=== PATIENT | female | born 2000 | race Caucasian/White ===

== ENCOUNTER 2024-12-04 02:48 | Inpatient (IN) | payer OTHER, MEDICAID, SELFPAY ==
--- OUTSIDE RECORDS SUMMARY | 2024-12-03 23:05 | XMS RPT_ITS | CCD ---
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 Unavailable UnavailSHARMILA Solomon DO Primary Care Physician [phone] SHARMILA CHAUDHARI DO Primary Care Physician SHARMILA CHAUDHARI DO Attending Unavailable SHARMILA CHAUDHARI DO Primary Care Unavailable SHARMILA CHAUDHARI DO Attending Unavailable SHARMILA CHAUDHARI DO Primary Care Unavailable Unavailable Primary Care Provider UnavailSHARMILA Solomon DO Primary Care Unavailable SHARMILA CHAUDHARI DO Attending Unavailable SHARMILA CHAUDHARI DO Primary Care Unavailable YIFAN MORENO Attending SHARMILA Allred DO Primary Care Unavailable LUIS ANTONIO MOREIRA-YIFAN HALLMAN Attending SHARMILA Allred DO Primary Care Unavailable YIFAN MORENO Attending ELIANA Barbour Attending Unavail able DEANNA LIN Attending Unavailable LISBETH MORRIS Referring Unavailable ELIANA REED Attending Unavail able LISBETH MORRIS Referring Unavailable LISBETH MORRIS Attending Unavailable SALONI ZUNIGA Attending Unavailable SABRINA CAMPOS Attending Unavailable LISBETH MORRIS Attending Unavailable LORAINE VALERIO Referring Unavailable LORAINE VALERIO Referring Unavailable LORAINE VALERIO Attending Unavailable DEANNA LIN Attending Unavailable MATTIE HARMAN Attending Unavailable Allergies Allergy Classification Reported Allergen(s) Allergy Type Date of Onset Reaction(s) Facility (7 sources) Pollen Allergy to substance Unknown [facility] [place] (7 sources) Animal Dander Allergy to substance Unknown [facility] [place] (7 sources) Grass Allergy to substance Unknown [facility] Medications Current Medications Medication Drug Class(es) Dates Sig (Normalized) Sig (Original) Albuterol (11 sources) beta2-Adrenergic Agonist Start: 04-21-2023 ALBUTEROL INHALATION Inhale as instructed. 04/21/2023 Active Albuterol (Eqv-ProAir HFA) 90 mcg/inh inhalation aerosol (4 sources) Start: 04-21-2023 take 1 dose by inhalation every six hours Albuterol (Eqv-ProAir HFA) 90 mcg/inh inhalation aerosol Dose = 2 puff(s), Inhalation, q6hr, # 1 EA, 5 Refill(s), Pharmacy: [facility] #[id number], Environmental allergy, 160.8, cm, 04/21/23 15:35:00 EDT, Height, kg, 04/21/23 15:35:00 EDT, Dosing Weight Start Date: 04/21/23 Status: Ordered cetirizine hydrochloride 10 mg oral tablet (4 sources) Histamine-1 Receptor Antagonist Start: 10-20-2023 cetirizine 10 mg oral tablet Dose : 10 mg = 1 tab(s), Oral, qDay, # 30 tab(s), 5 Refill(s), [facility]acy: [facility] #[id number], Environmental allergy, 162, cm, 10/20/23 13:01:00 EDT, Height, kg, 10/20/23 13:01:00 EDT, Dosing Weight Start Date: 10/20/23 Status: Ordered Start: 04-21-2023 cetirizine 10 mg oral tablet Dose : 10 mg = 1 tab(s), Oral, qDay, # 30 tab(s), 5 Refill(s), Pharmacy: [facility] #[id number], Environmental allergy, 160.8, cm, 04/21/23 15:35:00 EDT, Height, kg, 04/21/23 15:35:00 EDT, Dosing Weight Start Date: 04/21/23 Status: Ordered [id number]-[id number]-[id number] ACID ORAL (5 sources) COLLAGEN-BIOTIN- ASCORBIC ACID ORAL Take by mouth. Active Famotidine (11 sources) Histamine-2 Receptor Antagonist famotidine (PEPCID O RAL) Take by mouth. Active hydrOXYzine hydrochloride 25 mg oral tablet (2 sources) Antihistamine Sta rt: 4 hydrOXYzine hydrochloride 25 mg oral tablet Dose : 25 mg = 1 tab(s), Oral, TID, PRN as needed for anxiety, # 90 tab(s), 2 Refill(s), Pharmacy: [facility] #[id number], Anxiety Recurrent major depression, 163.1, cm, 07/22/23 13:00:00 EST, Height, kg, 07/22/23 13:00:00 EST, Dosing Weight Start Date: 07/22/23 Status: Ordered metoclopramide 10 mg oral tablet (11 sources) Dopamine-2 Receptor Antagonist Sta rt: 5 take 1 tablet by mouth every six hours at bedtime as needed for nausea metoclopramide HCl (REGLAN) 10 mg tablet TAKE 1 TABLET BY MOUTH EVERY 6 HOURS (ONE-HALF HOUR BEFORE MEALS AND AT BEDTIME) NEEDED FOR NAUSEA. 06/28/2024 Active minocycline 100 mg oral capsule (2 sources) Tetracycline-clas s Drug Sta rt: 2 minocycline 100 mg oral capsule Dose : 100 mg = 1 cap(s), Oral, Daily, # 90 cap(s), 1 Refill(s), Pharmacy: [facility] #[id number], Cystic acne, 162.6, cm, 08/25/21 15:23:00 EST, Height, 54.5 Start Date: 02/19/22 Status: Ordered omeprazole 20 mg delayed release oral capsule (2 sources) Proton Pump Inhibitor Sta rt: 4 omeprazole 20 mg oral delayed release capsule Dose : 20 mg = 1 cap(s), Oral, qDay, # 30 cap(s), 5 Refill(s), Pharmacy: [facility] #[id number], GERD without esophagitis, 162, cm, 12/31/23 13:27:00 EDT, Height, kg, 12/31/23 13:27:00 EDT, Dosing Weight Start Date: 12/31/23 Status: Ordered PNV no.95/ferrous fum/folic ac ( ORAL) (13 sources) PNV no.95/ferrou s fum/folic ac ( ORAL) Take by mouth. Active Vitamin D3 1250 mcg (50,000 intl units) oral capsule (3 sources) Sta rt: Vitamin D3 1250 mcg (50,000 intl units) oral capsule Dose : 1,250 mcg = 1 cap(s), Oral, qWeek, # 13 cap(s), 3 Refill(s), Pharmacy: [facility] #[id number], Vitamin D deficiency, 162, cm, 12/31/23 13:27:00 EDT, Height, kg, 12/31/23 13:27:00 EDT, Dosing Weight Start Date: 12/31/23 Status: Ordered Start: 04-22-2023 Vitamin D3 125 0 mcg (50,000 intl units) oral capsule Dose : 1,250 mcg = 1 cap(s), Oral, qWeek, # 13 cap(s), 3 Refill(s), Pharmacy: [facility] #[id number], Vitamin D deficiency, 160.8, cm, 04/21/23 15:35:00 EDT, Height, kg, 04/21/23 15:35:00 EDT, Dosing Weight Start Date: 04/22/23 Status: Ordered Completed/Discontinued Medications Medication Drug Class(es) Dates Sig (Normalized) Sig (Original) nystatin 100 unt/mg topical powder (2 sources) Polyene Antifungal Start: 10-20-2023 End: 12-19-2023 nystatin 100,000 units/g topical powder Apply 1 bipin, Topical, BID, Apply to affected area twice a day, # 60 gram(s), 1 Refill(s), Pharmacy: [facility] #[id number], Powder, 162, cm, 10/20/23 13:01:00 EDT, Height, 55.5, kg, 10/20/23 13:01:00 EDT, Dosing Weight Start Date: 10/20/23 Stop Date: 12/19/23 Status: Ordered Problems Active Problems Problem Classification Problem Date Documented Date Episodic/Chronic Allergic reactions (7 sources) Environmental allergy; Translations: [Allergic disposition] 01-17-2019 Episodic Anxiety disorders (7 sources) Anxiety 01-17-2019 Chronic Bacterial infection; unspecified site (1 source) Bacteria present; Translations: [Streptococcus, group B, as the cause of diseases classified elsewhere] 11-29-2024 Episodic Disorders of teeth and jaw (7 sources) Jaw pain 01-31-2020 Episodic Esophageal disorders (3 sources) Gastroesophageal reflux disease without esophagitis 12-31-2023 Chronic Genitourinary symptoms and ill-defined conditions (2 sources) Unspecified symptoms and signs involving the genitourinary system; Translations: [Unspecified symptoms and signs involving the genitourinary system] Onset: 11-17-2024 Episodic Headache; including migraine (7 sources) Chronic tension-type headache 06-29-2019 Chronic Immunizations and screening for infectious disease (1 source) Patient encounter status; Translations: [Encounter for screening for infections with a predominantly sexual mode of transmission] 07-26-2024 Episodic Menstrual disorders (7 sources) Menorrhagia 01-17-2019 Chronic Miscellaneous mental health disorders (7 sources) Bruxism (teeth grinding) 11-30-2019 Chronic Mood disorders (12 sources) Depressive disorder; Translations: [Recurrent major depression] 01-17-2019 Chronic Mood disorders (1 source) Mood disorders; Translations: [Depression affecting ([facility])] Onset: 07-26-2024 Mycoses (3 sources) Candidiasis 10-20-2023 Episodic Nausea and vomiting (7 sources) Nausea and vomiting 04-26-2020 Episodic Nutritional deficiencies (3 sources) Vitamin D deficiency 07-22-2023 Chronic Other complications of (20 sources) Depressive disorder in mother complicating ; Translations: [Other mental disorders complicating , unspecified trimester] Onset: 07-26-2024 07-26-2024 Episodic Other complications of (4 sources) Uterine size for dates discrepancy; Translations: [Uterine size-date discrepancy, third trimester] 10-25-2024 Episodic Other complications of (12 sources) High risk ; Translations: [Supervision of high risk due to social problems, third trimester] Onset: 10-25-2024 10-25-2024 Episodic Other complications of (1 source) Supervision of high risk due to social problems, third trimester; Translations: [Supervision of high risk due to social problems, third trimester ([facility])] Onset: 10-25-2024 Episodic Other complications of (1 source) Uterine size-date discrepancy, third trimester; Translations: [Uterine size-date discrepancy, third trimester ([facility])] Onset: 11-15-2024 Episodic Other injuries and conditions due to external causes (7 sources) Deliberate self-cutting 01-17-2019 Episodic Other nutritional; endocrine; and metabolic disorders (5 sources) Body mass index less than 20 01-27-2023 Episodic Other and delivery including normal (20 sources) Normal ; Translations: [Encounter for supervision of normal first , second trimester] Onset: 07-26-2024 07-26-2024 Episodic Other screening for suspected conditions (not mental disorders or infectious disease) (12 sources) Viral screening status; Translations: [Cancer cervix screening status] Onset: 08-14-2024 04-21-2023 Episodic Other skin disorders (7 sources) Cystic acne 02-19-2022 Episodic Other skin disorders (5 sources) Bina incarnati 01-27-2023 Episodic Residual codes; unclassified (7 sources) Tobacco user 11-30-2019 Episodic Residual codes; unclassified (5 sources) Needs influenza immunization 04-21-2023 Episodic Residual codes; unclassified (5 sources) Screening due 04-21-2023 Episodic Residual codes; unclassified (3 sources) Unprotected sexual intercourse 10-20-2023 Episodic Residual codes; unclassified (1 source) Gestation period, 21 weeks; Translations: [21 weeks gestation of ] 07-26-2024 Episodic Residual codes; unclassified (1 source) Gestation period, 24 weeks; Translations: [24 weeks gestation of ] 08-14-2024 Episodic Residual codes; unclassified (1 source) Gestation period, 25 weeks; Translations: [25 weeks gestation of ] 08-17-2024 Episodic Residual codes; unclassified (1 source) Gestation period, 29 weeks; Translations: [29 weeks gestation of ] 09-15-2024 Episodic Residual codes; unclassified (1 source) Gestation period, 31 weeks; Translations: [31 weeks gestation of ] 09-29-2024 Episodic Residual codes; unclassified (2 sources) Gestation period, 34 weeks; Translations: [34 weeks gestation of ] 10-25-2024 Episodic Residual codes; unclassified (1 source) Gestation period, 37 weeks; Translations: [37 weeks gestation of ] 11-15-2024 Episodic Residual codes; unclassified (1 source) Gestation period, 38 weeks; Translations: [38 weeks gestation of ] 11-20-2024 Episodic Residual codes; unclassified (1 source) Gestation period, 39 weeks; Translations: [39 weeks gestation of ] 11-29-2024 Episodic Residual codes; unclassified (1 source) 39 weeks gestation of ; Translations: [39 weeks gestation of (HCC)] Onset: 11-29-2024 Episodic Residual codes; unclassified (1 source) 38 weeks gestation of ; Translations: [38 weeks gestation of (HCC)] Onset: 11-20-2024 Episodic Residual codes; unclassified (1 source) 37 weeks gestation of ; Translations: [37 weeks gestation of (HCC)] Onset: 11-15-2024 Episodic Residual codes; unclassified (1 source) 36 weeks gestation of ; Translations: [36 weeks gestation of (HCC)] Onset: 11-08-2024 Episodic Residual codes; unclassified (1 source) 34 weeks gestation of ; Translations: [34 weeks gestation of (HCC)] Onset: 10-25-2024 Episodic Residual codes; unclassified (1 source) 33 weeks gestation of ; Translations: [33 weeks gestation of (HCC)] Onset: 10-13-2024 Episodic Residual codes; unclassified (1 source) 21 weeks gestation of ; Translations: [21 weeks gestation of (HCC)] Onset: 09-15-2024 Episodic Residual codes; unclassified (1 source) 25 weeks gestation of ; Translations: [25 weeks gestation of (HCC)] Onset: 09-15-2024 Episodic Screening and history of mental health and substance abuse codes (5 sources) Ex-tobacco user 01-27-2023 Episodic Unclassified (2 sources) Unknown / UNK(Unknown) Onset: 03-01-2017 Unclassified (7 sources) Cancer cervix screening status 03-20-2022 Unclassified (7 sources) Finding of menstrual bleeding 03-20-2022 Unclassified (20 sources) Patient encounter status 03-20-2022 Unclassified (8 sources) Body mass index 20-24 - normal 04-21-2023 Unclassified (13 sources) [facility] Education - COMMON Onset: 07-26-2024 07-26-2024 Unclassified (13 sources) Education - [place] Onset: 07-26-2024 5 Urinary tract infections (1 source) Chronic cystitis Onset: 03-01-2017 Chronic Viral infection (7 sources) Disease caused by 2019-nCoV 02-19-2022 Past or Other Problems Problem Classification Problem Date Documented Da te Episodic/Chronic Other complications of (14 sources) Vomiting of , unspecified; Translations: [Unspecified vomiting of , unspecified as to episode of care or not applicable] Onset: 07-26-2024 07-26-2024 Episodic Other complications of (14 sources) Heartburn; Translations: [Other specified related conditions, second trimester] Onset: 07-26-2024 07-26-2024 Episodic Other complications of (1 source) Other mental disorders complicating , unspecified trimester; Translations: [Depression affecting (HCC)] Onset: 07-26-2024 Episodic Residual codes; unclassified (1 source) 24 weeks gestation of ; Translations: [24 weeks gestation of ] Onset: 08-14-2024 Episodic Unclassified (1 source) SINUS PRESSURE AND CONGESTION Onset: 04-26-2017 Results Test Name Value Interpretation Reference Range Facility URINE OB DIP B/Oon 5 Glucose Ql (U) Negative Neg mg/dL [facility] Interpretation and review of laboratory results Normal [facility] Protein.monoclonal (U) [Mass/Vol] Negative Neg mg/dL [facility] URINE OB DIP B/Oon 5 Glucose Ql (U) Negative Neg mg/dL [facility] Interpretation and review of laboratory results Normal [facility] Protein.monoclonal (U) [Mass/Vol] Negative Neg mg/dL [facility] URINE OB DIP B/Oon 5 Glucose Ql (U) Negative Neg mg/dL [facility] Protein.monoclonal (U) [Mass/Vol] Negative Neg mg/dL [facility] ROUTINE, GROUP B ST REPTOCOCCUS BY PCRon 11-08-2024 ROUTINE, GROUP B STREPTOCOCCUS BY PCR Detected Abnormal [facility] Comment on above: Performed By: #### G BPCR ####[facility] LABCLIA [id number] [place] [address] [place] CNPNon 10-26-2024 [facility] Telephone (NAVWST) RAMSEYMELQUIADES A ([id number]) 1 F Date Time Provider Department 10/26/24 TERE OLIVARES During your visit today, we recorded the following information about you: Tere Olivares MSW 10/26/2024 11:09 AM Signed Miguel received message asking Sw reach out to patient to discuss adoption service options in the area. Sw called patient back and left message for patient to give this Sw a call back to discuss care support in the [facility]. Tere Olivares MSW 10/27/2024 11:52 AM Signed Miguel received message back from patient requesting call back. Sw called patient back and left message for patient to return Sw call to discuss below. Tere Olivares MSW 11/01/2024 11:39 AM Signed Sw and patient discussed starting with [facility]. Sw thought it would be helpful for patient to reach out to [facility] to gather more information about adoption and learn more about the agencies that are out there to assist with adoption. Patient took down [facility] ph. [phone] address:[address] [place] [address], [phone]. Patient notes that she will give them a call and will let this Sw know if she has any further needs. Allergies As of Date: 10/26/2024 (No Known Allergies) Date Reviewed: 10/25/2024 Reviewed by: Ara Perla MA - Fully Assessed Prescriptions as of 11/01/2024 - ALBUTEROL INHALATION Inhale as instructed. - metoclopramide HCl (REGLAN) 10 mg tablet TAKE 1 TABLET BY MOUTH EVERY 6 HOURS (ONE-HALF HOUR BEFORE MEALS AND AT BEDTIME) NEEDED FOR NAUSEA. - famotidine (PEPCID ORAL) Take by mouth. - PNV no.95/ferrous fum/folic ac ( ORAL) Take by mouth. Problem List As Of Date 10/26/2024 Noted Resolved with care elsewhere in secon*07/26/2024 Encounter for supervision of normal first pregn*07/26/2024 Nausea and vomiting during [O21.9] 07/26/2024 Depression affecting [O99.340, F32.A] 07/26/2024 Heartburn during in second trimester *07/26/2024 Supervision of high risk due to socia*10/25/2024 Encounter Status:Closed by TERE OLIVARES on 11/01/24 Normal [facility] Examination level ultrasound on 10-25-2024 [facility] Radiology Study observation (narrative) [facility] URINE OB DIP B/Oon Glucose Ql (U) Negative Neg mg/dL [facility] Protein.monoclonal (U) [Mass/Vol] Negative Neg mg/dL [facility] CNPNon 10-09-2024 CNPN Telephone (PSYRMN) MELQUIADES MUSTAFA ([id number]) 1 F Date Time Provider Department 10/09/24 HATTIE PLUNKETT PSYRMN During your visit today, we recorded the following information about you: Hattie Plunkett LISW 10/09/2024 12:17 PM Signed Phone call to patient regarding [facility] referral. Patient did not answer, unable to leave message. Outreach attempt #3. Will send MC message. WB SW can be reached at: [place]: [phone] [place]:[phone] Allergies As of Date: 10/09/2024 (No Known Allergies) Date Reviewed: 09/30/2024 Reviewed by: Saloni Zuniga MD - Fully Assessed Reason for Visit: Base Brander - Other [2376] Cmt: [facility] Consult Follow Up Prescriptions as of 10/09/2024 - ALBUTEROL INHALATION Inhale as instructed. - metoclopramide HCl (REGLAN) 10 mg tablet TAKE 1 TABLET BY MOUTH EVERY 6 HOURS (ONE-HALF HOUR BEFORE MEALS AND AT BEDTIME) NEEDED FOR NAUSEA. - famotidine (PEPCID ORAL) Take by mouth. - PNV no.95/ferrous fum/folic ac ( ORAL) Take by mouth. - [id number] ACID ORAL Take by mouth. Problem List As Of Date 10/09/2024 Noted Resolved with care elsewhere in secon*07/26/2024 Encounter for supervision of normal first pregn*07/26/2024 Nausea and vomiting during [O21.9] 07/26/2024 Depression affecting [O99.340, F32.A] 07/26/2024 Heartburn during in second trimester *07/26/2024 Encounter Status:Closed by HATTIE PLUNK[facility]T [facility] Tele[facility] (PSYRMN) MELQUIADES MUSTAFA ([id number]) 1 F Date Time Provider Department 09/27/24 HATTIE PLUNKETT PSYRMN During your visit today, we recorded the following information about you: Hattie Plunkett LISW 09/27/2024 1:42 PM Signed Phone call to patient regarding [facility] referral. Patient did not answer, left message. [facility] SW can be reached at: [place]: [phone] [place]:[phone] Allergies As of Date: 09/27/2024 (No Known Allergies) Date Reviewed: 09/15/2024 Reviewed by: Mickey Figueroa MA - Fully Assessed Reason for Visit: Base Brander - Other [0450] Cmt: [facility] Consult Follow Up Prescriptions as of 09/27/2024 - ALBUTEROL INHALATION Inhale as instructed. - metoclopramide HCl (REGLAN) 10 mg tablet TAKE 1 TABLET BY MOUTH EVERY 6 HOURS (ONE-HALF HOUR BEFORE MEALS AND AT BEDTIME) NEEDED FOR NAUSEA. - famotidine (PEPCID ORAL) Take by mouth. - PNV no.95/ferrous fum/folic ac ( ORAL) Take by mouth. - [id number] ACID ORAL Take by mouth. Problem List As Of Date 09/27/2024 Noted Resolved with care elsewhere in secon*07/26/2024 Encounter for supervision of normal first pregn*07/26/2024 Nausea and vomiting during [O21.9] 07/26/2024 Depression affecting [O99.340, F32.A] 07/26/2024 Heartburn during in second trimester *07/26/2024 Encounter Status:Closed by HATTIE PLUNKETT on 09/27/24 Normal [facility] CARRIER SCREEN, STANDARDon 0 09-15-2024 CARRIER SCREEN RESULTS View results in Scanned Documents link when available. Normal [facility] Comment on above: Order Comment: Speci men Type: BLOOD SPECIMENOrdering Facility: [facility] Address: [address] [place] [address] Performed By: #### C RRSCN ####MYRIADCLIA [id number] [place] [address] CBC W Auto Differential pane l (Bld)on 09-15-2024 Basophils (Bld) [#/Vol] 0.03 10*3/uL Normal <0.11 [facility] Comment on above: Order Comment: Speci men Type: BLOOD SPECIMENOrdering Facility: [facility] Address: [address] [place] [address] Performed By: #### 5 7021-8 ####[facility] HOSPITALMarcia [id number] [place] [address] [place] Basophils/100 WBC (Bld) 0.3 % Normal [facility] Comment on above: Order Comment: Speci men Type: BLOOD SPECIMENOrdering Facility: [facility] Address: [address] [place] [address] Performed By: #### 5 7021-8 ####[facility] RAINADEBORALIA [id number] [place] [address] [place] Differential cell count method Nom (Bld) Auto Normal [facility] Comment on above: Order Comment: Speci men Type: BLOOD SPECIMENOrdering Facility: [facility] Address: [address] [place] [address] Performed By: #### 5 7021-8 ####[facility]NCL[facility] [id number] [place] [address] [place] Eosinophils (Bld) [#/Vol] 0.17 10*3/uL Normal <0.46 [facility] Comment on above: Order Comment: Speci men Type: BLOOD SPECIMENOrdering Facility: [facility] Address: [address] [place] [address] Performed By: #### 5 7021-8 ####[facility] [id number] [place] [address] [place] Eosinophils/100 WBC (Bld) 1.7 % Normal [facility] Comment on above: Order Comment: Speci men Type: BLOOD SPECIMENOrdering Facility: [facility] Address: [address] [place] [address] Performed By: #### 5 7021-8 ####[facility] [id number] [place] [address] [place] Erythrocyte distribution width (RBC) [Ratio] 12.1 % Normal 11.5-15.0 [facility] Comment on above: Order Comment: Speci men Type: BLOOD SPECIMENOrdering Facility: [facility] Address: [address] [place] [address] Performed By: #### 5 7021-8 ####[facility]IA [id number] [place] [address] [place] Hematocrit (Bld) [Volume fraction] 34.4 % Low 36.0-46.0 [facility] Comment on above: Order Comment: Speci men Type: BLOOD SPECIMENOrdering Facility: [facility] Address: [address] [place] [address] Performed By: #### 5 7021-8 ####[facility]ITALTRENA [id number] [place] [address] [place] Hemoglobin (Bld) [Mass/Vol] 11.8 g/dL Normal 11.5-15.5 [facility] Comment on above: Order Comment: Speci men Type: BLOOD SPECIMENOrdering Facility: [facility] Address: [address] [place] [address] Performed By: #### 5 7021-8 ####[facility]PITALLIMarcia [id number] [place] [address] [place] Immature granulocytes (Bld) [#/Vol] 0.04 10*3/uL Normal <0.10 [facility] Comment on above: Order Comment: Speci men Type: BLOOD SPECIMENOrdering Facility: [facility] Address: [address] [place] [address] Performed By: #### 5 7021-8 ####[facility]THNCLIA [id number] [place] [address] [place] Immature granulocytes/100 WBC (Bld) 0.4 % Normal [facility] Comment on above: Order Comment: Speci men Type: BLOOD SPECIMENOrdering Facility: [facility] Address: [address] [place] [address] Performed By: #### 5 7021-8 ####[facility] NORTHNCLIA [id number] [place] [address] [place] Lymphocytes (Bld) [#/Vol] 1.83 10*3/uL Normal 1.00-4.00 [facility] Comment on above: Order Comment: Speci men Type: BLOOD SPECIMENOrdering Facility: [facility] Address: [address] [place] [address] Performed By: #### 5 7021-8 ####[facility] [id number] [address] STATES [facility] Lymphocytes/100 WBC (Bld) 18.2 % Normal [facility] Comment on above: Order Comment: Speci men Type: BLOOD SPECIMENOrdering Facility: [facility] Address: [address] [place] [address] Performed By: #### 5 7021-8 ####[facility] [id number] [place] [address] [place] MCH (RBC) [Entitic mass] 33.1 pg Normal 26.0-34.0 [facility] Comment on above: Order Comment: Speci men Type: BLOOD SPECIMENOrdering Facility: [facility] Address: [address] [place] [address] Performed By: #### 5 7021-8 ####[facility] [id number] [address] [place] MCHC (RBC) [Mass/Vol] 34.3 g/dL Normal 30.5-36.0 [facility] Comment on above: Order Comment: Speci men Type: BLOOD SPECIMENOrdering Facility: [facility] Address: [address] [place] [address] Performed By: #### 5 7021-8 ####[facility] [id number] [address] [place] MCV (RBC) [Entitic vol] 96.4 fL Normal 80.0-100.0 [facility] Comment on above: Order Comment: Speci men Type: BLOOD SPECIMENOrdering Facility: [facility] Address: [address] [place] [address] Performed By: #### 5 7021-8 ####[facility] MILL[facility]OWNCLIA [id number] [place] [address] [place] Monocytes (Bld) [#/Vol] 0.64 10*3/uL Normal <0.87 [facility] Comment on above: Order Comment: Speci men Type: BLOOD SPECIMENOrdering Facility: [facility] Address: [address] [place] [address] Performed By: #### 5 7021-8 ####[facility] MILL[facility]OWNCL[facility] [id number] [place] [address] [place] Monocytes/100 WBC (Bld) 6.4 % Normal [facility] Comment on above: Order Comment: Speci men Type: BLOOD SPECIMENOrdering Facility: [facility] Address: [address] [place] [address] Performed By: #### 5 7021-8 ####[facility] [id number] [place] [address] [place] Neutrophils (Bld) [#/Vol] 7.36 10*3/uL Normal 1.45-7.50 [facility] Comment on above: Order Comment: Speci men Type: BLOOD SPECIMENOrdering Facility: [facility] Address: [address] [place] [address] Performed By: #### 5 7021-8 ####[facility] MILL[facility]OWNCL[facility] [id number] [place] [address] [place] Neutrophils/100 WBC (Bld) 73.0 % Normal [facility] Comment on above: Order Comment: Speci men Type: BLOOD SPECIMENOrdering Facility: [facility] Address: [address] [place] [address] Performed By: #### 5 7021-8 ####[facility]ILL[facility]OWNCL[facility] [id number] [place] [address] [place] Nucleated RBC (Bld) [#/Vol] 10*3/uL Normal <0.01 [facility] Comment on above: Order Comment: Speci men Type: BLOOD SPECIMENOrdering Facility: [facility] Address: [address] [place] [address] Performed By: #### 5 7021-8 ####[facility] [id number] [place] [address] [place] Nucleated RBC/100 WBC (Bld) [Ratio] 0.0 /100 WBC Normal [facility] Comment on above: Order Comment: Speci men Type: BLOOD SPECIMENOrdering Facility: [facility] Address: [address] [place] [address] Performed By: #### 5 7021-8 ####[facility] [id number] [place] [address] [place] Platelet mean volume (Bld) [Entitic vol] 10.1 fL Normal 9.0-12.7 [facility] Comment on above: Order Comment: Speci men Type: BLOOD SPECIMENOrdering Facility: [facility] Address: [address] [place] [address] Performed By: #### 5 7021-8 ####[facility] [id number] [place] [address] [place] Platelets (Bld) [#/Vol] 254 10*3/uL Normal 150-400 [facility] Comment on above: Order Comment: Speci men Type: BLOOD SPECIMENOrdering Facility: [facility] Address: [address] [place] [address] Performed By: #### 5 7021-8 ####[facility] [id number] [place] [address] [place] RBC (Bld) [#/Vol] 3.57 10*6/uL Low 3.90-5.20 [facility] Comment on above: Order Comment: Speci men Type: BLOOD SPECIMENOrdering Facility: [facility] Address: [address] [place] [address] Performed By: #### 5 7021-8 ####[facility] [id number] [place] [address] [place] [facility] WBC (Bld) [#/Vol] 10.07 10*3/uL Normal 3.70-11.00 [facility] Comment on above: Order Comment: Speci men Type: BLOOD SPECIMENOrdering Facility: [facility] Address: [address] [place] [address] Performed By: #### 5 7021-8 ####[facility] [id number] [address] OF [facility] CNPLakesha 09-15-2024 CNPN Telephone (PSYRMN) MELQUIADES MUSTAFA ([id number]) 1 F Date Time Provider Department 09/15/24 ONEYDA BARAHONA PSYRMN During your visit today, we recorded the following information about you: Oneyda Barahona LISW 09/15/2024 4:21 PM Signed Phone call to patient regarding [facility] referral. Patient did not answer, left message. [facility] SW can be reached at: [place]: [phone] [place]:[phone] Allergies As of Date: 09/15/2024 (No Known Allergies) Date Reviewed: 09/15/2024 Reviewed by: Mickey Figueroa MA - Fully Assessed Reason for Visit: Base Brander - Other [[id number]] Cmt: [facility] referral follow up Prescriptions as of 09/15/2024 - ALBUTEROL INHALATION Inhale as instructed. - metoclopramide HCl (REGLAN) 10 mg tablet TAKE 1 TABLET BY MOUTH EVERY 6 HOURS (ONE-HALF HOUR BEFORE MEALS AND AT BEDTIME) NEEDED FOR NAUSEA. - famotidine (PEPCID ORAL) Take by mouth. - PNV no.95/ferrous fum/folic ac ( ORAL) Take by mouth. - TJQLBAQE-EIBQYI-KXAZYSQL ACID ORAL Take by mouth. Problem List As Of Date 09/15/2024 Noted Resolved with care elsewhere in secon*07/26/2024 Encounter for supervision of normal first pregn*07/26/2024 Nausea and vomiting during [O21.9] 07/26/2024 Depression affecting [O99.340, F32.A] 07/26/2024 Heartburn during in second trimester *07/26/2024 Encounter Status:Closed by ONEYDA BARAHONA on 09/15/24 Normal [facility] GESTATIONAL GLUCOSE SCREEN, 1-HOUR, 50 GRAM, NON-FASTINGon 09-15-2024 Glucose [Mass/Vol] 133 mg/dL Normal 74-134 [facility] Comment on above: Order Comment: Gaby perkins Type: BLOOD SPECIMEN Ordering Facility: [facility] Address: [address] [place], [place] [address] Result Comment: [facility] Congress of Obstetricians and Gynecologists (Nasir/Roni) guidelines state a gestational diabetes mellitus positive screen is made, in women not previously diagnosed with overt diabetes, when the 1 hr plasma glucose level is equal to or above 140 mg/dL. The [facility] and [facility] [place] recommends a 135 mg/dL cutoff. Performed By: #### G LTGST #### [facility] CLIA [id number] [address] [place] [address] [place] HCV Ab Ser Qlon 09-15-2024 HCV Ab Ql (S) Negative Normal Negative [facility] Comment on above: Order Comment: Gaby perkins Type: BLOOD SPECIMENOrdering Facility: [facility] Address: [address] [id number] Result Comment: The result suggests no evidence of infection with Hepatitis C virus. Should recent infection be suspected, repeat testing may be considered 4-6 weeks after this draw. Performed By: #### 1 6128-1 ####[facility] LABCLIA [id number] [place] [address] [place] HbA1c (Bld)on 09-15-2024 Average glucose Estimated from glycated hemoglobin (Bld) [Mass/Vol] 82 mg/dL Normal [facility] Comment on above: Order Comment: Speci men Type: BLOOD SPECIMENOrdering Facility: [facility] Address: [address] [place] [address] Result Comment: eAG: (Estimated average glucose) is a calculated value from HgbA1c and is service center representative of the average blood glucose level in the last 2-3 month period. Performed By: #### 5 5454-3 ####[facility] LABIA [id number] [address] [place] HbA1c (Bld) [Mass fraction] 4.5 % Normal 4.3-5.6 [facility] Comment on above: Order Comment: Speci maddie Type: BLOOD SPECIMENOrdering Facility: [facility] Address: [address] [place] [address] Result Comment: Amer ican Diabetes Association guidelines indicate that patients with HgbA1c in the range 5.7-6.4% are at increased risk for development of diabetes, and intervention by lifestyle modification may be beneficial. HgbA1c greater or equal to 6.5% is considered diagnostic of diabetes. Performed By: #### 5 5454-3 ####[facility] LABIA [id number] [place] [address] [place] Reagin and Treponema pallidu m IgG and IgM [Interp]on 09-15-2024 T. pallidum IgG+IgM IA Ql (S) Non-Reactive Normal Nonreactive [facility] Comment on above: Order Comment: Trangi men Type: BLOOD SPECIMENOrdering Facility: [facility] Address: [address] [place] [address] Performed By: #### 7 3752-8 ####[facility] LABCLIA [id number] [place] [address] [place] Reagin+T pallidum IgG+IgM Se rPl-Impon 09-15-2024 Reagin and Treponema pallidum IgG and IgM [Interp] Cannot exclude recent Treponemal infection if specimen collected within 7-10 days after appearance of suspect lesions or 2-3 weeks after an exposure. Clinical correlation is required. Normal [facility] Comment on above: Order Comment: Speci men Type: BLOOD SPECIMENOrdering Facility: [facility] Address: [address] [place] [address] Performed By: #### 7 3752-8 ####[facility] LABCLIA [id number] [place] [address] [place] [facility] Examination level ultrasound on 08-14-2024 Indication Standard anatomic survey Impression REMOTE READ The patient is referred for a standard anatomic survey. - Single, live, intrauterine . - biometry is consistent with the established gestational age. - No malformations were visualized on a complete standard anatomic survey. - The amniotic fluid volume is normal amount. - The placenta is posterior, fundal. - Simple appearing left ovarian cyst as measured below - Not all structural malformations can be detected by ultrasound examination. Recommendations Additional follow-up as clinically indicated. Maternal Assessment Height 163 cm Height (ft) 5 ft Height (in) 4 in Physical Exam Initial weight (lb) 115 lb Initial BMI 19.74 kg/m Method Transabdominal ultrasound examination. View: Adequate visualization [place] . Number of fetuses: 1 Dating GA by prior assessment 24 w + 4 d YAZ by prior assessment: 11/30/2024 Ultrasound examination on: 08/14/2024 GA by U/S based upon: AC, BPD, Femur, HC GA by U/S 25 w + 2 d YAZ by U/S: 11/25/2024 Assigned: based on stated YAZ, selected on 08/14/2024 Assigned GA 24 w + 4 d Assigned YAZ: 11/30/2024 General Evaluation Cardiac activity present. FHR 148 bpm. movements: present. Presentation: breech Placenta: Placental site: posterior, fundal Umbilical cord: Cord vessels: 3 vessel cord. Insertion site: normal insertion Amniotic fluid: Amount of AF: normal amount. MVP 6.1 cm. PIO 19.1 cm. Q1 6.1 cm, Q2 5.0 cm, Q3 3.1 cm, Q4 4.9 cm Growth Overview Exam date GA BPD (mm) HC (mm) AC (mm) FL (mm) HL (mm) EFW (g) 08/14/2024 24w 4d 61.1 53% 228.5 53% 214.6 82% 46.1 86% 42.6 73% 825 82% Biometry Standard BPD 61.1 mm 24w 6d 53% Hadlock OFD 81.7 mm 24w 5d 70% Nicolaides HC 228.5 mm 24w 5d 53% Elsie Cerebellum tr 28.5 mm 25w 1d 75% Hill AC 214.6 mm 26w 0d 82% Hadlock Femur 46.1 mm 25w 3d 86% Elsie Humerus 42.6 mm 25w 4d 73% Elsie EFW 825 g 25w 2d 82% Hadlock EFW (lb) 1 lb EFW (oz) 13 oz EFW by: Hadlock (HC-AC-FL) Extended Head Of History 3.4 mm CM 5.4 mm 29% Nicolaides Extremities / Bony Struc FL / HC 0.20 Other Structures FHR 148 bpm Anatomy Cranium: normal Lateral ventricles: normal Choroid plexus: normal Midline falx: normal Cavum septi pellucidi: normal Cerebellum: normal Cisterna magna: normal Head / Neck Vermis: Normal but not required for a standard anatomy exam Neck: Normal but not required for a standard anatomy exam Nuchal fold: Normal but not required for a standard anatomy exam Lips: normal Profile: Normal but not required for a standard anatomy exam Nose: Normal but not required for a standard anatomy exam Face Maxilla: Normal but not required for a standard anatomy exam Mandible: Normal but not required for a standard anatomy exam Orbits: Normal but not required for a standard anatomy exam Lens: Normal but not required for a standard anatomy exam 4-chamber view: normal RVOT view: normal LVOT view: normal 3-vessel view: normal 7-yclngx-qbnynej view: normal Heart / Thorax Situs: situs solitus (normal) Aortic arch view: Normal but not required for a standard anatomy exam SVC: Normal but not required for a standard anatomy exam IVC: Normal but not required for a standard anatomy exam Cardiac axis: normal Rt lung: Normal but not required for a standard anatomy exam Lt lung: Normal but not required for a standard anatomy exam Diaphragm: Normal but not required for a standard anatomy exam Cord insertion: normal Stomach: normal Kidneys: normal Bladder: normal Genitals: normal Abdomen Abdom. wall: normal Cervical spine: normal Thoracic spine: normal Lumbar spine: normal Sacral spine: normal Arms: normal Legs: normal Rt upper arm: normal Rt forearm: normal Rt hand: normal Rt fingers: normal Lt upper arm: normal Lt forearm: normal Lt hand: normal Lt fingers: normal Rt upper leg: normal Rt lower leg: normal Rt foot: normal Lt upper leg: normal Lt lower leg: normal Lt foot: normal sex: female sex: normal Wants to know sex: yes Maternal Structures Uterus / Cervix Uterus: Visualized Cervix: Visualized Ovaries / Tubes / Adnexa Rt ovary: Visualized Lt ovary: Visualized Lt ovarian cyst(s): Cysts identified Lt ovarian cyst D1 31 mm Lt ovarian cyst D2 24 mm Lt ovarian cyst D3 27 mm Lt ovarian cyst mean 27.3 mm Lt ovarian cyst vol 10.518 cm Lt ovarian cyst findings: Unilocular simple cyst Performed By: Evangelina Morgan RDMS Read By: Preeti Lee M.D. MATERNAL MEDICINE [facility] Radiology Study observation (narrative) [facility] Rehan 07-17-2024 BANNER Telephone ([id number]) MELQUIADES MUSTAFA ([id number]) 1 F Date Time Provider Department 07/17/24 SALONI BRUNO [id number] During your visit today, we recorded the following information about you: Saloni Bruno RN 07/17/2024 8:31 AM Signed ----- Message from Tesha Emmanuel sent at 07/14/2024 4:32 PM EST ----- Regarding: WHQ/RAYMOND/ Patient has been identified by name and Date of : Yes Patient: Melquiades Mustafa Date of : 2000 Provider for this encounter : No primary care provider on file. Reason for call: Triage Was an appointment scheduled: No Reason for requesting visit (RFV/signs and symptoms/diagnosis) : Person calling: self Return call to: self Call patient at: at home [phone] (home) Payor: [employer] PLAN / Plan: [employer] GENERIC / Product Type: PPO / Tesha Roach Saloni Bruno RN 07/17/2024 8:33 AM Signed Call placed to patient to triage for new OB appt. No answer, LMTCB. Saloni Bruno RN 07/19/2024 11:19 AM Signed Additional attempt made to speak to patient. No answer, LMTCB if patient still desires an appt. Saloni Bruno RN 07/19/2024 11:20 AM Signed Spoke to patient. She already has an appt. Closing encounter. Allergies As of Date: 07/17/2024 (Not on File) Date Reviewed: Never Reviewed Reason for Visit: Base Brander - Other [0077] Cmt: Initial OB RN CC pool Problem List As Of Date: 07/17/2024 (None) Encounter Status:Closed by SALONI BRUNO on 07/19/24 Normal [facility] RPRon 05-29-2024 Reagin Ab RPR Ql (S) Non-Reactive Normal Non-Reactive [facility] Comment on above: Result Comment: The RPR test is a non-treponemal assay useful as an aid in the diagnosis of primary and secondary syphilis. It converts to positive generally within 2 weeks after the appearance of a lesion. This test is also useful for monitoring response to antibiotic therapy. A positive RPR screening test will be followed by the FTA ABS test. False positive RPR tests may occur in 1) patients with underlying autoimmune disorders, 2) elderly patients, 3) , and 4) other conditions with abnormal serum globulins. Performed By: #### R UBIS, HBSAG, RPR, VARIS #### [place] [address] #### CBC, ADIFF, TSH, ANEU, ABSGEL, ABOGEL, HIVRP #### [address] [address] RUBISon 05-29-[address] Positive Normal Positive [facility] Comment on above: Result Comment: This immune status assay detects IgM and/or IgG antibody to Rubella. Interpret results in conjunction with clinical history. POS: Antibody detected; exposure at undetermined recent or distant time. If clinically indicated, order Rubella IGM to rule out recent infection. NEG: No antibody detected. Performed By: #### R UBIS, HBSAG, RPR, VARIS #### [place] [address] #### CBC, ADIFF, TSH, ANEU, ABSGEL, ABOGEL, HIVRP #### [place] [address] VARISon 05-27-[address] Positive Normal [facility] Comment on above: Result Comment: INTE RPRETATION OF VARICELLA IMMUNE STATUS IgG BY EIA: Negative: No detectable VZV IgG antibody. Positive: VZV IgG antibody Detected. If clinically indicated, order Varicella IgM to rule out recent infection. Equivocal: Equivocal for antibodies to VZV. Suggest repeat testing in 10-14 days. Performed By: #### R UBIS, HBSAG, RPR, VARIS #### [place] [address] #### CBC, ADIFF, TSH, ANEU, ABSGEL, ABOGEL, HIVRP #### [address] [address] .Auto Diffon 05-26-2024 Basophil, Absolute 0.0 10 3/mcL Normal 0.0-0.2 [facility] Comment on above: Performed By: #### R UBIS, HBSAG, RPR, VARIS #### [place] [address] #### CBC, ADIFF, TSH, ANEU, ABSGEL, ABOGEL, HIVRP #### [place] [id number] Basophils/100 WBC (Bld) 0.3 % Normal 0.0-2.5 [facility] Comment on above: Performed By: #### R UBIS, HBSAG, RPR, VARIS #### [place] [address] #### CBC, ADIFF, TSH, ANEU, ABSGEL, ABOGEL, HIVRP #### [address] [address] Eosinophil, Absolute 0.3 10 3/mcL Normal 0.0-0.7 [facility] Comment on above: Performed By: #### R UBIS, HBSAG, RPR, VARIS #### [place] [address] #### CBC, ADIFF, TSH, ANEU, ABSGEL, ABOGEL, HIVRP #### [address] [address] Eosinophils/100 WBC (Bld) 2.7 % Normal 0.0-7.0 [facility] Comment on above: Performed By: #### R UBIS, HBSAG, RPR, VARIS #### [place] [address] #### CBC, ADIFF, TSH, ANEU, ABSGEL, ABOGEL, HIVRP #### [address] [address] Lymphocyte, Absolute 1.9 10 3/mcL Normal 0.9-4.3 [facility] Comment on above: Performed By: #### R UBIS, HBSAG, RPR, VARIS #### [place] [address] #### CBC, ADIFF, TSH, ANEU, ABSGEL, ABOGEL, HIVRP #### [address] [address] Lymphocytes/100 WBC (Bld) 20.0 % Normal 20.0-40.0 [facility] Comment on above: Performed By: #### R UBIS, HBSAG, RPR, VARIS #### [place] [address] #### CBC, ADIFF, TSH, ANEU, ABSGEL, ABOGEL, HIVRP #### [address] [address] Monocyte, Absolute 0.5 10 3/mcL Normal 0.1-1.4 [facility] Comment on above: Performed By: #### R UBIS, HBSAG, RPR, VARIS #### [place] [address] #### CBC, ADIFF, TSH, ANEU, ABSGEL, ABOGEL, HIVRP #### [address] [address] Monocytes/100 WBC (Bld) 5.1 % Normal 2.0-13.0 [facility] Comment on above: Performed By: #### R UBIS, HBSAG, RPR, VARIS #### [place] [address] #### CBC, ADIFF, TSH, ANEU, ABSGEL, ABOGEL, HIVRP #### [address] [address] Neutrophils/100 WBC (Bld) 71.9 % Normal 50.0-75.0 [facility] Comment on above: Performed By: #### R UBIS, HBSAG, RPR, VARIS #### [place] [address] #### CBC, ADIFF, TSH, ANEU, ABSGEL, ABOGEL, HIVRP #### [address] [address] .NEUABSon 05-26-2024 Neutrophil, Absolute 6.8 10 3/mcL Normal 2.3-8.1 [facility] Comment on above: Performed By: #### R UBIS, HBSAG, RPR, VARIS #### [place] [address] #### CBC, ADIFF, TSH, ANEU, ABSGEL, ABOGEL, HIVRP #### [address] [address] ABO/Rh (Gel)on 12-06-2024 ABO/Rh Interp AB POS Invalid Interpretation Code [facility] Comment on above: Performed By: #### R UBIS, HBSAG, RPR, VARIS #### [place] [address] #### CBC, ADIFF, TSH, ANEU, ABSGEL, ABOGEL, HIVRP #### [address] [address] ABS (Gel)on 05-26-2024 ABSC Interp (Gel) Negative Normal [facility] Comment on above: Performed By: #### R UBIS, HBSAG, RPR, VARIS #### [place] [address] #### CBC, ADIFF, TSH, ANEU, ABSGEL, ABOGEL, HIVRP #### [address] [address] C. trachomatis+N. gonorrhoea e DNA SILVIA+probe Ql (Unsp spec)on 05-26-2024 C. trachomatis rRNA SILVIA+probe Ql (Unsp spec) Not detected Not detected [facility] N. gonorrhoeae rRNA SILVIA+probe Ql (Unsp spec) Not detected Not detected [facility] CBCon 05-26-2024 Erythrocyte distribution width (RBC) [Ratio] 12.5 % Normal 11.5-15.5 [facility] Comment on above: Performed By: #### R UBIS, HBSAG, RPR, VARIS #### [place] [address] #### CBC, ADIFF, TSH, ANEU, ABSGEL, ABOGEL, HIVRP #### [address] [address] Hematocrit (Bld) [Volume fraction] 35.8 % Normal 34.0-46.0 [facility] Comment on above: Performed By: #### R UBIS, HBSAG, RPR, VARIS #### [place] [address] #### CBC, ADIFF, TSH, ANEU, ABSGEL, ABOGEL, HIVRP #### [address] [address] Hgb 12.3 G/dL Normal 12.0-16.0 [facility] Comment on above: Performed By: #### R UBIS, HBSAG, RPR, VARIS #### [place] [address] #### CBC, ADIFF, TSH, ANEU, ABSGEL, ABOGEL, HIVRP #### [address] [address] MCH (RBC) [Entitic mass] 32.6 pg Normal 27.0-33.0 [facility] Comment on above: Performed By: #### R UBIS, HBSAG, RPR, VARIS #### [place] [address] #### CBC, ADIFF, TSH, ANEU, ABSGEL, ABOGEL, HIVRP #### [place] [address] MCHC 34.4 G/dL Normal 32.0-36.0 [facility] Comment on above: Performed By: #### R UBIS, HBSAG, RPR, VARIS #### [place] [address] #### CBC, ADIFF, TSH, ANEU, ABSGEL, ABOGEL, HIVRP #### [address] [address] MCV (RBC) [Entitic vol] 94.7 fL Normal 80.0-99.0 [facility] Comment on above: Performed By: #### R UBIS, HBSAG, RPR, VARIS #### [place] [address] #### CBC, ADIFF, TSH, ANEU, ABSGEL, ABOGEL, HIVRP #### [place] [address] Platelet 243 10 3/mcL Normal 150-450 [facility] Comment on above: Performed By: #### R UBIS, HBSAG, RPR, VARIS #### [place] [address] #### CBC, ADIFF, TSH, ANEU, ABSGEL, ABOGEL, HIVRP #### [address] [address] Platelet mean volume (Bld) [Entitic vol] 8.4 fL Normal 6.6-10.5 [facility] Comment on above: Performed By: #### R UBIS, HBSAG, RPR, VARIS #### [place] [address] #### CBC, ADIFF, TSH, ANEU, ABSGEL, ABOGEL, HIVRP #### [address] [address] RBC 3.78 10 6/mcL Low 4.10-5.30 [facility] Comment on above: Performed By: #### R UBIS, HBSAG, RPR, VARIS #### [place] [address] #### CBC, ADIFF, TSH, ANEU, ABSGEL, ABOGEL, HIVRP #### [address] [address] WBC 9.4 10 3/mcL Normal 4.5-10.8 [facility] Comment on above: Performed By: #### R UBIS, HBSAG, RPR, VARIS #### [place] [address] #### CBC, ADIFF, TSH, ANEU, ABSGEL, ABOGEL, HIVRP #### [address] [address] CBC panel Auto (Bld)Ordered By: Jami Jean on 05-26-2024 Hematocrit (Bld) [Volume fraction] 35.4 % Abnormal 36.0 - 46.0 % [facility] Hemoglobin (Bld) [Mass/Vol] 12 g/dL 11.5 - 15.5 g/dL [facility] Interpretation and review of laboratory results Abnormal [facility] Platelets (Bld) [#/Vol] 318 10*3/uL k/uL [facility] HBSAGon 05-26-2024 Hep B Surf Ag Non-Reactive Normal Non-Reactive [facility] Comment on above: Performed By: #### R UBIS, HBSAG, RPR, VARIS #### [place] [address] #### CBC, ADIFF, TSH, ANEU, ABSGEL, ABOGEL, HIVRP #### [address] [address] HEPATITIS B SURFACE ANTIGENo n 05-26-2024 HBV surface Ag Ql (S) Negative [facility] HIV 1+2 Ab IA Qlon HIV 1+2 Ab+HIV1 p24 Ag IA Ql Non-Reactive [facility] HIVRPon 05-26-2024 HIV p24 Antigen Non-Reactive Normal Non-Reactive [facility] Comment on above: Result Comment: Dete ction of p24 may be inhibited by biotin in the sample, causing false negative results in acute infection. Therefore do not test samples from patients who are taking biotin. Performed By: #### R UBIS, HBSAG, RPR, VARIS #### [place] [address] #### CBC, ADIFF, TSH, ANEU, ABSGEL, ABOGEL, HIVRP #### [place] [address] HIV P24 Int Non-Reactive Invalid Interpretation Code [facility] Comment on above: Performed By: #### R UBIS, HBSAG, RPR, VARIS #### [place] [address] #### CBC, ADIFF, TSH, ANEU, ABSGEL, ABOGEL, HIVRP #### [place] [id number] Rapid HIV 1/2 Antibody Non-Reactive Normal Non-Reactive [facility] Comment on above: Performed By: #### R UBIS, HBSAG, RPR, VARIS #### [place] [address] #### CBC, ADIFF, TSH, ANEU, ABSGEL, ABOGEL, HIVRP #### [address] [address] RHIV 1/2 Ab Int Non-Reactive Invalid Interpretation Code [facility] Comment on above: Performed By: #### R UBIS, HBSAG, RPR, VARIS #### [address] [address] #### CBC, ADIFF, TSH, ANEU, ABSGEL, ABOGEL, HIVRP #### [place] [id number] [place], [place] [address] LABORATORYOrdered By: Carol Hayward on 05-26-2024 ABO and Rh group Nom (Bld) Blood group AB Rh(D) positive Invalid Interpretation Code AO BB Auto SS Blood group antibody screen Ql Negative ABSC (05/26/24 11:40 AM) Normal AO BB Auto SS HIV 1 p24 Ab Ql (S) Non-Reactive 1 (05/26/24 11:40 AM) Normal Non-Reactive AO Rapid Testing SS Comment on above: Interpretive Data: D etection of p24 may be inhibited by biotin in the sample, causing false negative results in acute infection. Therefore do not test samples from patients who are taking biotin. HIV 1 p24 Ab Ql (S) Non-Reactive Invalid Interpretation Code AO Rapid Testing SS HIV 1+2 Ab IA Ql Non-Reactive Invalid Interpretation Code AO Rapid Testing SS HIV 1+2 Ab IA.rapid Ql (Unsp spec) Non-Reactive (05/26/24 11:40 AM) Normal Non-Reactive AO Rapid Testing SS LABORATORYOrdered By: SYSTEM SYSTEM on 05-26-2024 Basophils (Bld) [#/Vol] 0.0 103/mcL Normal 0.0 - 0.2 10^3/mcL AO Workflow SS Basophils/100 WBC (Bld) 0.3 % Normal 0.0 - 2.5 % AO Workflow SS Eosinophil, Absolute 0.3 103/mcL Normal 0.0 - 0.7 10^3/mcL AO Workflow SS Eosinophils/100 WBC (Bld) 2.7 % Normal 0.0 - 7.0 % AO Workflow SS Erythrocyte distribution width (RBC) [Ratio] 12.5 % Normal 11.5 - 15.5 % AO Workflow SS Hematocrit (Bld) [Volume fraction] 35.8 % Normal 34.0 - 46.0 % AO Workflow SS Hemoglobin (Bld) [Mass/Vol] 12.3 G/dL Normal 12.0 - 16.0 G/dL AO Workflow SS Lymphocytes (Bld) [#/Vol] 1.9 103/mcL Normal 0.9 - 4.3 10^3/mcL AO Workflow SS Lymphocytes/100 WBC (Bld) 20.0 % Normal 20.0 - 40.0 % AO Workflow SS MCH (RBC) [Entitic mass] 32.6 pg Normal 27.0 - 33.0 pg AO Workflow SS MCHC 34.4 G/dL Normal 32.0 - 36.0 G/dL AO Workflow SS MCV (RBC) [Entitic vol] 94.7 fL Normal 80.0 - 99.0 fL AO Workflow SS Monocytes (Bld) [#/Vol] 0.5 103/mcL Normal 0.1 - 1.4 10^3/mcL AO Workflow SS Monocytes/100 WBC (Bld) 5.1 % Normal 2.0 - 13.0 % AO Workflow SS Neutrophils (Bld) [#/Vol] 6.8 103/mcL Normal 2.3 - 8.1 10^3/mcL AO Workflow SS Neutrophils/100 WBC (Bld) 71.9 % Normal 50.0 - 75.0 % AO Workflow SS Platelet mean volume (Bld) [Entitic vol] 8.4 fL Normal 6.6 - 10.5 fL AO Workflow SS Platelets (Bld) [#/Vol] 243 103/mcL Normal 150 - 450 10^3/mcL AO Workflow SS RBC (Bld) [#/Vol] 3.78 106/mcL Low 4.10 - 5.3 0 10^6/mcL AO Workflow SS TSH Qn 1.42 m[IU]/L Normal 0.36 - 3.74 mcIU/mL AO ADM SS WBC (Bld) [#/Vol] 9.4 103/mcL Normal 4.5 - 10.8 10^3/mcL AO Workflow SS LABORATORYOrdered By: Joana Zarate on 05-26-2024 HBV surface Ag IA Ql Non-Reactive (05/26/24 11:40 AM) Normal Non-Reactive AH ADM SS No Panel InformationOrdered By: Jami Jean on 05-26-2024 [facility] RPR SCREENon 05-26-2024 Reagin Ab RPR Ql (S) Non-Reactive Nonreactive [facility] RUBELLA IGG ANTIBODYon 05-26 Rubella Antibody, IgG 6.2 Index [facility] Comment on above: Immune TSHon 05-26-2024 TSH Qn 1.42 m[IU]/L Normal 0.36-3.74 [facility] Comment on above: Performed By: #### R UBIS, HBSAG, RPR, VARIS #### [facility] [address] [place] [address] #### CBC, ADIFF, TSH, ANEU, ABSGEL, ABOGEL, HIVRP #### [place] [id number] [place], [place] [address] TSH (EXTERNAL)on 05-26-2024 TSH Qn 2.84 m[IU]/L [facility] TYPE + SCREEN (EXTERNAL LAB) on 05-26-2024 ABO/RH(D) (EXTERNAL) Positive [facility] VARICELLA ZOSTER IGGon 05-26 VZV IgG Qn (S) Positive [facility] LABORATORYOrdered By: SYSTEM SYSTEM on 07-06-2023 25-hydroxyvitamin D3 [Mass/Vol] 69.3 ng/mL Invalid Interpretation Code AO ADM SS Comment on above: Interpretive Data: I nterpretive Values Based on Total 25(OH) Vitamin D: Deficient <20 ng/mL Insufficient 20 - <30 ng/mL Sufficient 30-100 ng/mL VIDHon 07-06-2023 Vit. D 25-Hydroxy 69.3 ng/mL Normal [facility] ([place]) Comment on above: Result Comment: Inte rpretive Values Based on Total 25(OH) Vitamin D: Deficient <20 ng/mL Insufficient 20 - <30 ng/mL Sufficient 30-100 ng/mL Performed By: #### V IDH #### [address] [address] .GFRon 04-21-2023 GFR 126 ml/min/1.73sqm Normal [facility] ([place]) Comment on above: Result Comment: GFR Population mean for , Non- Americans Ages 20-29 = 116 mL/min/1.73 sq.m. Ages 30-39 = 107 mL/min/1.73 sq.m. Ages 40-49 = 99 mL/min/1.73 sq.m. Ages 50-59 = 93 mL/min/1.73 sq.m. Ages 60-69 = 85 mL/min/1.73 sq.m. Ages 70+ = 75 mL/min/1.73 sq.m. Chronic Kidney Disease: Less than 60 mL/min/1.73 square meters End Stage Renal Disease: Less than 15 mL/min/1.73 square meters Performed By: #### T SH, VIDH, CMP, GFR, LIPID #### [address] [address] #### HCV1 #### [address] [address] GFR Non- 104 ml/min/1.73sqm Normal [facility] ([place]) Comment on above: Result Comment: GFR Population mean for , Non- Americans Ages 20-29 = 116 mL/min/1.73 sq.m. Ages 30-39 = 107 mL/min/1.73 sq.m. Ages 40-49 = 99 mL/min/1.73 sq.m. Ages 50-59 = 93 mL/min/1.73 sq.m. Ages 60-69 = 85 mL/min/1.73 sq.m. Ages 70+ = 75 mL/min/1.73 sq.m. Chronic Kidney Disease: Less than 60 mL/min/1.73 square meters End Stage Renal Disease: Less than 15 mL/min/1.73 square meters Performed By: #### T SH, VIDH, CMP, GFR, LIPID #### [address] [address] #### HCV1 #### [address] [address] CMPon 04-21-2023 Albumin Level 4.1 G/dL Normal 3.5-5.0 [facility] ([place]) Comment on above: Performed By: #### T SH, VIDH, CMP, GFR, LIPID #### [address] [address] #### HCV1 #### [address] [address] Albumin/Globulin [Mass ratio] 1.3 {ratio} Normal 1.1-2.5 [facility] ([place]) Comment on above: Performed By: #### T SH, VIDH, CMP, GFR, LIPID #### [place] [address] #### HCV1 #### [address] [address] ALP [Catalytic activity/Vol] 49 U/L Normal 40-135 [facility] ([place]) Comment on above: Performed By: #### T SH, VIDH, CMP, GFR, LIPID #### [place] [address] #### HCV1 #### [address] [address] ALT [Catalytic activity/Vol] 36 U/L Normal 14-59 [facility] ([place]) Comment on above: Performed By: #### T SH, VIDH, CMP, GFR, LIPID #### [place] [address] #### HCV1 #### [place] [address] AST [Catalytic activity/Vol] 50 U/L High 10-40 [facility] ([place]) Comment on above: Performed By: #### T SH, VIDH, CMP, GFR, LIPID #### [place] [address] #### HCV1 #### [address] [address] Bili Total 0.5 mg/dL Normal 0.2-1.0 [facility] ([place]) Comment on above: Result Comment: Use of this assay is not recommended for patients undergoing treatment with eltrombopag due to the potential for falsely elevated results. Performed By: #### T SH, VIDH, CMP, GFR, LIPID #### [place] [address] #### HCV1 #### [place] [id number] BUN/Creatinine Ratio 20 ratio Normal 7-27 [facility] ([place]) Comment on above: Performed By: #### T SH, VIDH, CMP, GFR, LIPID #### [place] [address] #### HCV1 #### [address] [address] Calcium [Mass/Vol] 9.1 mg/dL Normal 8.4-10.2 [facility] ([place]) Comment on above: Performed By: #### T SH, VIDH, CMP, GFR, LIPID #### [address] [address] #### HCV1 #### [address] [address] Chloride [Moles/Vol] 103 mmol/L Normal 98-107 [facility] ([place]) Comment on above: Performed By: #### T SH, VIDH, CMP, GFR, LIPID #### [place] [address] #### HCV1 #### [address] [address] CO2 [Moles/Vol] 26 mmol/L Normal 22-29 [facility] ([place]) Comment on above: Performed By: #### T SH, VIDH, CMP, GFR, LIPID #### [place] [address] #### HCV1 #### [place] [address] Creatinine [Mass/Vol] 0.70 mg/dL Normal 0.55-1.02 [facility] ([place]) Comment on above: Performed By: #### T SH, VIDH, CMP, GFR, LIPID #### [place] [address] #### HCV1 #### [address] [address] Electrolyte Balance 10.0 mEq/L Normal 4.0-15.0 [facility] ([place]) Comment on above: Performed By: #### T SH, VIDH, CMP, GFR, LIPID #### [place] [address] #### HCV1 #### [place] [address] Globulin 3.2 G/dL Normal [facility] ([place]) Comment on above: Performed By: #### T SH, VIDH, CMP, GFR, LIPID #### [address] [address] #### HCV1 #### [address] [address] Glucose [Mass/Vol] 91 mg/dL Normal 70-105 [facility] ([place]) Comment on above: Performed By: #### T SH, VIDH, CMP, GFR, LIPID #### [address] [address] #### HCV1 #### [address] [address] Potassium [Moles/Vol] 4.8 mmol/L Normal 3.5-5.1 [facility] ([place]) Comment on above: Performed By: #### T SH, VIDH, CMP, GFR, LIPID #### [place] [address] #### HCV1 #### [address] [address] Sodium [Moles/Vol] 139 mmol/L Normal 136-145 [facility] ([place]) Comment on above: Performed By: #### T SH, VIDH, CMP, GFR, LIPID #### [address] [address] #### HCV1 #### [address] [address] Total Protein 7.3 G/dL Normal 6.4-8.2 [facility] ([place]) Comment on above: Performed By: #### T SH, VIDH, CMP, GFR, LIPID #### [address] [address] #### HCV1 #### [address] [address] Urea nitrogen [Mass/Vol] 14 mg/dL Normal 7-18 [facility] ([place]) Comment on above: Performed By: #### T SH, VIDH, CMP, GFR, LIPID #### [address] [address] #### HCV1 #### [place] [address] HCVon 04-21-2023 Hep C Ab Non-Reactive Normal Non-Reactive [facility] ([place]) Comment on above: Performed By: #### T SH, VIDH, CMP, GFR, LIPID #### [place] [id number] #### HCV1 #### [place] [address] Hep C Ab Int Normal [facility] ([place]) Comment on above: Result Comment: Nonr eactive: Samples with a value < 0.80 are considered nonreactive (negative) for antibodies to HCV. A negative test result does not exclude the possibility of exposure to or infection with HCV. HCV antibodies may be undetectable in some stages of the infection and in some clinical conditions. See Interp Performed By: #### T SH, VIDH, CMP, GFR, LIPID #### [address] [address] #### HCV1 #### [place] [address] LABORATORYOrdered By: SYSTEM SYSTEM on 04-21-2023 25-hydroxyvitamin D3 [Mass/Vol] 26.1 ng/mL Invalid Interpretation Code AO ADM SS Comment on above: Interpretive Data: I nterpretive Values Based on Total 25(OH) Vitamin D: Deficient <20 ng/mL Insufficient 20 - <30 ng/mL Sufficient 30-100 ng/mL Albumin BCP dye [Mass/Vol] 4.1 G/dL Invalid Interpretation Code 3.5 - 5.0 G/dL AO ADM SS Albumin/Globulin [Mass ratio] 1.3 {ratio} Invalid Interpretation Code 1.1 - 2.5 ratio AO ADM SS ALP [Catalytic activity/Vol] 49 U/L Invalid Interpretation Code 40 - 135 U/L AO ADM SS ALT With P-5'-P [Catalytic activity/Vol] 36 U/L Invalid Interpretation Code 14 - 59 U/L AO ADM SS AST With P-5'-P [Catalytic activity/Vol] 50 U/L Invalid Interpretation Code 10 - 40 U/L AO ADM SS Bilirubin [Mass/Vol] 0.5 mg/dL Invalid Interpretation Code 0.2 - 1.0 mg/dL AO ADM SS Comment on above: Interpretive Data: U se of this assay is not recommended for patients undergoing treatment with eltrombopag due to the potential for falsely elevated results. Calcium [Mass/Vol] 9.1 mg/dL Invalid Interpretation Code 8.4 - 10.2 mg/dL AO ADM SS Chloride [Moles/Vol] 103 mmol/L Invalid Interpretation Code 98 - 107 mmol/L AO ADM SS CO2 [Moles/Vol] 26 mmol/L Invalid Interpretation Code 22 - 29 mmol/L AO ADM SS Creatinine [Mass/Vol] 0.70 mg/dL Invalid Interpretation Code 0.55 - 1.02 mg/dL AO ADM SS Electrolyte Balance 10.0 mEq/L Invalid Interpretation Code 4.0 - 15.0 mEq/L AO ADM SS GFR/1.73 sq M.predicted among blacks MDRD (S/P/Bld) [Vol rate/Area] 126 ml/min/1.73sqm Invalid Interpretation Code AO Chemistry S Comment on above: Interpretive Data: GFR Population mean for , Non- Americans Ages 20-29 = 116 mL/min/1.73 sq.m. Ages 30-39 = 107 mL/min/1.73 sq.m. Ages 40-49 = 99 mL/min/1.73 sq.m. Ages 50-59 = 93 mL/min/1.73 sq.m. Ages 60-69 = 85 mL/min/1.73 sq.m. Ages 70+ = 75 mL/min/1.73 sq.m. Chronic Kidney Disease: Less than 60 mL/min/1.73 square meters End Stage Renal Disease: Less than 15 mL/min/1.73 square meters GFR/1.73 sq M.predicted among non-blacks MDRD (S/P/Bld) [Vol rate/Area] 104 ml/min/1.73sqm Invalid Interpretation Code AO Chemistry S Comment on above: Interpretive Data: GFR Population mean for , Non- Americans Ages 20-29 = 116 mL/min/1.73 sq.m. Ages 30-39 = 107 mL/min/1.73 sq.m. Ages 40-49 = 99 mL/min/1.73 sq.m. Ages 50-59 = 93 mL/min/1.73 sq.m. Ages 60-69 = 85 mL/min/1.73 sq.m. Ages 70+ = 75 mL/min/1.73 sq.m. Chronic Kidney Disease: Less than 60 mL/min/1.73 square meters End Stage Renal Disease: Less than 15 mL/min/1.73 square meters Globulin 3.2 G/dL Invalid Interpretation Code AO ADM SS Glucose [Mass/Vol] 91 mg/dL Invalid Interpretation Code 70 - 105 mg/dL AO ADM SS Potassium [Moles/Vol] 4.8 mmol/L Invalid Interpretation Code 3.5 - 5.1 mmol/L AO ADM SS Protein [Mass/Vol] 7.3 G/dL Invalid Interpretation Code 6.4 - 8.2 G/dL AO ADM SS Sodium [Moles/Vol] 139 mmol/L Invalid Interpretation Code 136 - 145 mmol/L AO ADM SS TSH Qn 1.87 m[IU]/L Invalid Interpretation Code 0.36 - 3.74 mcIU/mL AO ADM SS Urea nitrogen [Mass/Vol] 14 mg/dL Invalid Interpretation Code 7 - 18 mg/dL AO ADM SS Urea nitrogen/Creatinine [Mass ratio] 20 ratio Invalid Interpretation Code 7 - 27 ratio AO ADM SS LABORATORYOrdered By: Aleida Knox on 04-21-2023 Cholesterol [Mass/Vol] 163 mg/dL Invalid Interpretation Code 0 - 200 mg/dL AO ADM SS Comment on above: Interpretive Data: C holesterol Reference Interval: Less than 200 Desirable 200-239 Borderline high risk 240 and above High risk Cholesterol in HDL [Mass/Vol] 47 mg/dL Invalid Interpretation Code 40 - 60 mg/dL AO ADM SS Cholesterol in LDL [Mass/Vol] 101 mg/dL Invalid Interpretation Code 0 - 130 mg/dL AO ADM SS Triglyceride [Mass/Vol] 77 mg/dL Invalid Interpretation Code 0 - 150 mg/dL AO ADM SS Comment on above: Interpretive Data: T riglyceride Reference Interval: Less than 150 Normal 150-199 Borderline high risk 200-499 High risk 500 or higher Very high risk LABORATORYOrdered By: Joana Zarate on 04-21-2023 HCV Ab IA Ql Non-Reactive (04/21/23 4:51 PM) Invalid Interpretation Code Non-Reactive AH ADM SS HCV Ab IA Ql Nonreactive: Samples with a value < 0.80 are considered nonreactive (negative) for antibodies to HCV.A negative test result does not exclude the possibility of exposure to or infection with HCV. HCV antibodies may be undetectable in some stages of the infection and in some clinical conditions. Invalid Interpretation Code Chemistry S LIPIDon 04-21-2023 Cholesterol [Mass/Vol] 163 mg/dL Normal 0-200 [facility] ([place]) Comment on above: Result Comment: Chol esterol Reference Interval: Less than 200 Desirable 200-239 Borderline high risk 240 and above High risk Performed By: #### T SH, VIDH, CMP, GFR, LIPID #### [place] [address] #### HCV1 #### [address] [address] Cholesterol in HDL [Mass/Vol] 47 mg/dL Normal 40-60 [facility] ([place]) Comment on above: Performed By: #### T SH, VIDH, CMP, GFR, LIPID #### [place] [address] #### HCV1 #### [address] [address] Cholesterol in LDL [Mass/Vol] 101 mg/dL Normal 0-130 [facility] ([place]) Comment on above: Performed By: #### T SH, VIDH, CMP, GFR, LIPID #### [place] [address] #### HCV1 #### [address] [address] Triglyceride [Mass/Vol] 77 mg/dL Normal 0-150 [facility] ([place]) Comment on above: Result Comment: Trig lyceride Reference Interval: Less than 150 Normal 150-199 Borderline high risk 200-499 High risk 500 or higher Very high risk Performed By: #### T SH, VIDH, CMP, GFR, LIPID #### [place] [address] #### HCV1 #### [address] [address] TSHon 04-21-2023 TSH Qn 1.87 m[IU]/L Normal 0.36-3.74 [facility] ([place]) Comment on above: Performed By: #### T SH, VIDH, CMP, GFR, LIPID #### [address] [address] #### HCV1 #### [place] [address] VIDHon 04-21-2023 Vit. D 25-Hydroxy 26.1 ng/mL Normal [facility] ([place]) Comment on above: Result Comment: Inte rpretive Values Based on Total 25(OH) Vitamin D: Deficient <20 ng/mL Insufficient 20 - <30 ng/mL Sufficient 30-100 ng/mL Performed By: #### T SH, VIDH, CMP, GFR, LIPID #### [address] [address] #### HCV1 #### [place] [address] LABORATORYOrdered By: Aleida Kaplan on 03-21-2022 Albumin BCP dye [Mass/Vol] 4.3 G/dL Invalid Interpretation Code 3.5 - 5.0 G/dL AO ADM SS Albumin/Globulin [Mass ratio] 1.5 {ratio} Invalid Interpretation Code 1.1 - 2.5 ratio AO ADM SS ALP [Catalytic activity/Vol] 69 U/L Invalid Interpretation Code 40 - 135 U/L AO ADM SS ALT With P-5'-P [Catalytic activity/Vol] 21 U/L Invalid Interpretation Code 14 - 59 U/L AO ADM SS AST With P-5'-P [Catalytic activity/Vol] 14 U/L Invalid Interpretation Code 10 - 40 U/L AO ADM SS Bilirubin [Mass/Vol] 1.2 mg/dL Invalid Interpretation Code 0.2 - 1.0 mg/dL AO ADM SS Calcium [Mass/Vol] 8.9 mg/dL Invalid Interpretation Code 8.4 - 10.2 mg/dL AO ADM SS Chloride [Moles/Vol] 104 mmol/L Invalid Interpretation Code 98 - 107 mmol/L AO ADM SS Cholesterol [Mass/Vol] 187 mg/dL Invalid Interpretation Code 0 - 200 mg/dL AO ADM SS Cholesterol in HDL [Mass/Vol] 57 mg/dL Invalid Interpretation Code 40 - 60 mg/dL AO ADM SS Cholesterol in LDL [Mass/Vol] 122 mg/dL Invalid Interpretation Code 0 - 130 mg/dL AO ADM SS CO2 [Moles/Vol] 27 mmol/L Invalid Interpretation Code 22 - 29 mmol/L AO ADM SS Creatinine [Mass/Vol] 0.82 mg/dL Invalid Interpretation Code 0.55 - 1.02 mg/dL AO ADM SS Electrolyte Balance 7.0 mEq/L Invalid Interpretation Code 4.0 - 15.0 mEq/L AO ADM SS Globulin 2.8 G/dL Invalid Interpretation Code AO ADM SS Glucose [Mass/Vol] 81 mg/dL Invalid Interpretation Code 70 - 105 mg/dL AO ADM SS Potassium [Moles/Vol] 3.6 mmol/L Invalid Interpretation Code 3.5 - 5.1 mmol/L AO ADM SS Protein [Mass/Vol] 7.1 G/dL Invalid Interpretation Code 6.4 - 8.2 G/dL AO ADM SS Sodium [Moles/Vol] 138 mmol/L Invalid Interpretation Code 136 - 145 mmol/L AO ADM SS Triglyceride [Mass/Vol] 40 mg/dL Invalid Interpretation Code 0 - 150 mg/dL AO ADM SS TSH Qn 1.15 m[IU]/L Invalid Interpretation Code 0.36 - 3.74 mcIU/mL AO ADM SS Urea nitrogen [Mass/Vol] 14 mg/dL Invalid Interpretation Code 7 - 18 mg/dL AO ADM SS Urea nitrogen/Creatinine [Mass ratio] 17 ratio Invalid Interpretation Code 7 - 27 ratio AO ADM SS LABORATORYOrdered By: SYSTEM SYSTEM on 03-21-2022 GFR 106 ml/min/1.73sqm Invalid Interpretation Code AO Chemistry S GFR Non- 87 ml/min/1.73sqm Invalid Interpretation Code AO Chemistry S Urgent Care Visit Reporton 0 02-18-2022 Urgent Care Visit Report [facility] [address] [place] [address] [address] [place] [id number] OFFICE VISIT Date of Service: 02/18/22 MR#: [id number] Acct: [id number] Name: MELQUIADES MUSTAFA Rep #: [id number] : 2000 Provider: RACHID torres Age/Sex: 21/F Location: [facility] Status: Signed Intake Vital Signs 02/18/17 08:55 08/31/22 11:52 Height 5 ft 4 in 5 ft 4 in Weight: 123 lb BMI 21.1 BP 114/60 Blood Pressure Location Lt brachial Position Sitting Respiration 14 Pulse 103 H Pulse Source Monitor Temp 98.7 F Temp Source Temporal Pulse Oximetry (%) 98 Oxygen Delivery Method room air Intake Visit Reasons: COVID TEST Allergies No Known Allergies Allergy (Verified 02/11/17 09:54) PFS Medical History (Updated 02/18/22 @ 12:38 by Ajay Valentine PA, PA) COVID-19 Social History Smoking Status: Never smoker HPI HPI Details: MELQUIADES MUSTAFA, is a 21 F who presents to the office today for 24 hr h/o fever/ chills, cough, segal, myalgias, fatigue, sore throat w/ loss of taste/ smell, congestion, and nausea/ diarrhea. Sister w/ similar complaints. Myquil and Dayquil minimal to no benefit. Nonsmoker. No other associated symptoms and no other +/- factors. ROS Const Constitutional: No other (as above) Exam Const General: cooperative, healthy appearing and no acute distress Nutritional Appearance: average body habitus Orientation: alert, awake and oriented x3 HENMT Head: normal to inspection Ears: hearing grossly normal bilaterally, external ears normal, TM's normal bilaterally and EAC's normal Nose: external nose normal, nares normal, septum normal and nasal discharge clear Face and sinus: normal facial exam, sinuses nontender and face symmetric Mouth: oral mucosae normal, lip normal, tongue normal and oropharynx normal Throat: posterior oropharynx normal, tonsils normal, uvula midline and no postnasal drainage Eyes General: appearance normal, both eyes and all related structures Neck Neck: normal visual inspection, full ROM, no lymphadenopathy, no meningeal signs and supple Neck mass: No Thyroid: thyroid normal Lymphatic: no lymphadenopathy noted Chest Chest palpation inspection: normal inspection of the chest Resp Effort Inspection: normal respiratory effort, able to speak in complete sentences and no cough (Elicited cough during today's exam) Auscultation: Bilateral: Clear to Auscultation Cardio Palpation: normal PMI Rate: tachycardic Rhythm: regular rhythm Heart Sounds: S1 normal, S2 normal, no gallops, no murmurs and no rubs Pulses: radial pulses present GI Inspection: normal to inspection Palpation: soft and no hepatosplenomegaly Skin General: no rashes or lesions noted Neuro General: patient alert, patient awake, patient oriented x3 and gait normal Cognition: normal cognition Speech: speech normal Gait: normal gait Motor: muscle tone normal throughout Sensory Exam: no sensory deficits noted Psych Appearance: grossly normal Mental Status: mental status grossly normal Mood: congruent mood Affect: normal affect Speech and Movement: speech and movement normal Attitude: cooperative Thought Process: normal Thought Content: normal Judgment: judgment good Results POC KEITH Covid FluAB PCR POC Keith Covid PCR Detected Last Edit by Cecelia Parekh on 02/18/22 12:19 POC KEITH FLU NOT DETECTED FLU A B Last Edit by Cecelia Parekh on 02/18/22 12:19 Coding Level of Care Code Off vis,new,level 3 Diagnoses COVID-19 U07.1 Assessment and Plan Assessment and Plan (1) COVID-19: Status: Acute Plan: - fever/ chills, cough, segal, myalgias, fatigue, sore throat w/ loss of taste/ smell, congestion, and nausea/ diarrhea POC Keith COVID-19 positive, influenza A/B both negative in office today. Copy of lab results offered. Decadron as prescribed today per patient preference. Supportive measures as instructed today. Patient aware of isolation recommendations and [facility] department notification. Follow-up with PCP in 5 to 7 days should symptoms not improve, ED sooner should symptoms worsen or any other concerns develop. Patient states acknowledging understanding all the above. This note was generated with [employer] dictation software. It may contain incorrect words, spelling, and punctuation that were not noted in checking the note before signing. Orders: Orders POC Keith Covid FLUAB PCR Today R53.83 - Other fatigue Medications: New dexamethasone (Decadron) 6 mg PO DAILY 5 tabs 0RF 02/18/22 1241 Date Ajay Ruff Signature: Date (if applicable) CC: Normal [facility] JSon 07-27-2017 MARIAA STATCARE REPORT Normal [facility] JS DATE OF SERVICE: 11/2017A 17-year-old female who said that she stuck a piece of tissue paper in her nose andsays that she thought maybe she did not get all of it out and decided to get itchecked out. She has had a stuffy nose apparently for about 7 days and has 3 days ofantibiotics. She is already on Bactrim for this and has already been seen, butbecause of the left nose drainage decided to get checked it out. She is here withher mom.ALLERGIES: Nothing.REVIEW OF SYSTEMS: Noncontributory. No fever. No chills. There is the left-sidednasal pain.PHYSICAL EXAMINATION:Vital Signs: Blood pressure 110/70, pulse 95, respirations 16, temperature 98, pulseoximetry 100% on room air.HEENT: Normal TMs. Left and right nostrils are devoid of any foreign bodies. It isjust boggy and swollen. Normal pharynx. No significant sinus tenderness.Lungs: Clear to auscultation.DIAGNOSIS: Viral Sinusitis.Flonase was prescribed to the pharmacy. Continue Bactrim. I do not think she needsany additional antibiotics. Off-school note was given today. _ADINA Mcdonald/[id number]: 07/27/2017 11:33DT: 07/27/2017 13:01SSI File#: [id number] #: [id number]/Reviewed by07/29/17 0801 YANI *[facility] PATIENT NAME: MELQUIADES MUSTAFA A13[address] [facility] [address] N[address] MEDICAL REC #: [id number], [place] [address] STATCARE REPORT STATCARE PHYSICIAN Normal [facility]-2017 HCG.beta subunit Qn Negative Normal NEGATIVE [facility] Comment on above: Result Comment: Seru m Test is more Sensitive than a UrinePregnancy Test. Please Note Threshold Values: SERUM - 10mlU/mL URINE - 20mlU/mL Performed By: #### L 200.4092 ####ML - FBQREGWWXS[address] [place] [address] BMPon 04-28-2017 Anion gap 15.9 mmol/L Normal 15-22 [facility] Comment on above: Performed By: #### L 100.0010 ####ML - EUOVWGQDUK[address] [place] [address] Calcium 9.2 mg/dL Normal 8.4-10.2 [facility] Comment on above: Performed By: #### L 100.0010 ####ML - XXPAJYROBH[address] [place] [address] Chloride 100 mmol/L Normal 98-107 [facility] Comment on above: Performed By: #### L 100.0010 ####ML - HVXJFDJAOB[address] [place] [address] CO2 26 mmol/L Normal 22-29 [facility] Comment on above: Performed By: #### L 100.0010 ####ML - HNXWCUOMNC985 [place] [address] Creatinine 0.49 mg/dL Low 0.50-0.90 [facility] Comment on above: Performed By: #### L 100.0010 ####ML - AOHBVSTQSU[address] [place] [address] eGFR (non-black) > 60 ml/Min/1.73m2 Normal [facility] Comment on above: Performed By: #### L 100.0010 ####ML - COMNQVFVDY[address] [place] [address] Glucose mass conc 94 mg/dL Normal 60-100 [facility] Comment on above: Performed By: #### L 100.0010 ####[address] [address] Potassium molar conc 3.9 mmol/L Normal 3.5-5.0 [facility] Comment on above: Performed By: #### L 100.0010 ####[address] [address] Sodium 138 mmol/L Normal 135-145 [facility] Comment on above: Performed By: #### L 100.0010 ####[address] [address] Urea nitrogen 12 mg/dL Normal 5-18 [facility] Comment on above: Performed By: #### L 100.0010 ####[address] [address] CBCon 04-28-2017 Basophils Auto #/vol (Bld) 0.00 x10(3) Normal 0.00-0.10 [facility] Comment on above: Performed By: #### L 200.0010 ####[address] [address] Basophils/100 WBC Auto (Bld) 0.3 % Normal 0.0-1.0 [facility] Comment on above: Performed By: #### L 200.0010 ####[address] [address] Eosinophils 0.10 x10(3) Normal 0.00-0.54 [facility] Comment on above: Performed By: #### L 200.0010 ####[address] [address] Eosinophils/100 leukocytes 2.4 % Normal 0.5-4.9 [facility] Comment on above: Performed By: #### L 200.0010 ####[address] [address] Erythrocyte distribution width Auto Ratio (RBC) 12.6 % Normal 12.5-15.7 [facility] Comment on above: Performed By: #### L 200.0010 ####[address] [address] Erythrocytes (RBC) 4.20 x10(6) Normal 3.30-5.00 [facility] Comment on above: Performed By: #### L 200.0010 ####ML - DWZZOJAKHJ[address] [place] [address] Hematocrit (HCT) 39.0 % Normal 36.0-48.0 [facility] Comment on above: Performed By: #### L 200.0010 ####ML - BELMBNVRON[address] [place] [address] Hemoglobin mass conc (Bld) 13.5 g/dL Normal 12.0-16.0 [facility] Comment on above: Performed By: #### L 200.0010 ####ML - DMOYBTWBWO[address] [place] [address] Lymphocytes 1.20 x10(3) Normal 1.00-3.50 [facility] Comment on above: Performed By: #### L 200.0010 ####ML - MDGWDIHMLQ[address] [place] [address] Lymphocytes/100 leukocytes 22.3 % Normal 16.0-48.0 [facility] Comment on above: Performed By: #### L 200.0010 ####ML - RCNUXLZWBM[address] [place] [address] MCH 32.1 pg Normal 28.5-32.9 [facility] Comment on above: Performed By: #### L 200.0010 ####ML - KNOWOBFLCY[address] [place] [address] MCHC mass conc (RBC) 34.6 g/dL Normal 33.0-36.0 [facility] Comment on above: Performed By: #### L 200.0010 ####ML - ASTNTKOIVU[address] [place] [address] MCV 92.8 fL Normal 80.0-99.0 [facility] Comment on above: Performed By: #### L 200.0010 ####ML - MNBKSZPDLL[address] [place] [address] Monocytes 0.50 x10(3) Normal 0.30-0.80 [facility] Comment on above: Performed By: #### L 200.0010 ####ML - UVWECDOJIT[address] [place] [address] Monocytes/100 leukocytes 8.8 % Normal 4.3-11.2 [facility] Comment on above: Performed By: #### L 200.0010 ####ML - COIOZTKSRJ[address] [place] [address] Neutrophils 3.60 x10(3) Normal 1.40-6.50 [facility] Comment on above: Performed By: #### L 200.0010 ####ML - XTCNXGXDLM[address] [place] [address] Neutrophils/100 WBC Auto (Bld) 66.2 % Normal 45.0-73.0 [facility] Comment on above: Performed By: #### L 200.0010 ####ML - UPSKBUMWNL[address] [place] [address] Platelet mean volume (PMV) 8.4 fL Normal 7.5-9.5 [facility] Comment on above: Performed By: #### L 200.0010 ####ML - QDRZYDKWPS[address] [place] [address] Platelets 202 X10(3) Normal 150-450 [facility] Comment on above: Performed By: #### L 200.0010 ####ML - JVLWYQMYWN[address] [place] [address] WBC (Leukocytes) 5.4 x10(3) Normal 4.5-10.0 [facility] Comment on above: Performed By: #### L 200.0010 ####ML [facility] [address] [place] [address] EMERGENCY DEPARTMENT REPORTo n 04-28-2017 EMERGENCY DEPARTMENT REPORT [place], [place] [address]TTCQEA INFORMATION MANAGEMENTEMERGENCY DEPARTMENT REPORTPatient: SALTY MUSTAFA JEFFREY M.D.[id number] FStatus: DEP ER EDDate of Service: 04/28/17CHIEF COMPLAINTThis 17 year old female presents with vomiting. She [facility], placed on Zofran. Symptoms have continued. Her sister is alsosick with similar symptoms of nausea, vomiting, epigastric pain. No fever, no chills. Nodiarrhea. No urinary symptoms. Zofran has been less than successful in controlling hersymptoms.PHYSICAL EXAMINATIONPhysical exam finds a pale 17-year-old female who is orthostatic positive. Heart rate goesfrom 63 to 89 going to vertical position. Mucous membranes are a little bit dry. Nojaundice or scleral icterus. Mucous membranes are dry. Lung deras are clear. Norhonchi, rales or wheezing. Cardiac tones are regular. Abdomen: Very minimal epigastricpain to deep palpation. No guarding or rebound. No peritoneal irritation findings.EMERGENCY DEPARTMENT COURSEThe patient was rehydrated here with 2 L normal saline, given IV Zofran which has helped.She is able to keep some fluids down. Vitals were checked and they were fine.IMPRESSION1. Gastroenteritis.2. Dehydration.The patient will be discharged home. 04/28/17 1325 SEAN MCCALLUM M.D.cc: CHRISTINA MCCALLUM M.D. << Signature on File>> Reported By: CHRISTINA MCCALLUM M.D. Signed By: CHRISTINA MCCALLUM M.D.Tests performed at:[address] [phone] [facility] STRP SCNon 04-26-2017 STRP SCN Performed at: [facility] [address] [place], [place] [address] STREP SCREEN NEGATIVE - CULTURE TO FOLLOW REFERENCE RANGE NORMAL RESULT IS NEGATIVE. Normal [facility] THTon 04-26-2017 THT NO GROUP A BETA STRE P ISOLATED Normal [facility] Comment on above: Performed By: #### M 130.0700 ####ML - BYSOOODAXR[address] [place] [address] ORon 03-01-2017 OPERATIVE REPORT This is a preliminar y report only, as the practitioner review and authentication has not occurred. Normal [facility] OR DATE OF SERVICE: 03/01/2017PREOPERATIVE DIAGNOSIS: Chronic cystitis.POSTOPERATIVE DIAGNOSIS: Chronic interstitial cystitis.OPERATION: Cystoscopy and hydrodistention of the bladder.SURGEON: Ignacia Maza MDThe patient was put in lithotomy position, prepped and draped. Cystoscopy was done.Bladder was normal. No tumor seen, no stones seen. Bladder was distended tocapacity with about 700 mL. A second look at the bladder did document presence ofmultiple petechiae and submucosal hemorrhages scattered all throughout the bladder.At this point, the bladder was emptied and a second hydrodistention was done up tocapacity with about 700 mL. A third look at the bladder was identical to the secondlook. At this point the bladder was emptied, the scope was removed. Patienttolerated the procedure well and was taken to the recovery room in satisfactorycondition. Ignacia Maza MDBT/[id number]: 03/01/2017 12:26DT: 03/01/2017 21:14SSI File#: [id number] #: [id number] *[facility] PATIENT NAME: MELQUIADES MUSTAFA A13[address] [facility] [address] [facility] REC #: [id number], [place] [address] DATE:DISCHARGE DATE:OPERATIVE REPORT ATTENDING PHY: Ignacia Maza MD Normal [facility] URINE PREGNANCYon 03-01-2017 UR HCG QUAL Negative Normal NEGATIVE [facility] Comment on above: Order Comment: Chema s: M Performed By: #### L 600.82315 ####[facility] [address] [place], [place] [address]Cx# [phone] UR SPEC GRAV 1.020 Normal 1.005-1.030 [facility] Comment on above: Order Comment: Chema emmanuel: Grabiel Performed By: #### L 600.20688 ####[facility] KGDMQVMHRE[address] [place], [place] [address]Uc# [phone] Vital Signs Date Time Vital Sign Value Performing Clinician Shaw peterson 11-29-2024 09:15-0400 Body mass index (BMI) [Ratio] 25.24 kg/m2 Deanna Plotts ELECTRICAL INSPECTOR.CNM Work Phone: [facility] 11-29-2024 09:15-0400 Body weight 67.13 kg Deanna Plotts ELECTRICAL INSPECTOR.CNM Work Phone: [facility] 11-29-2024 09:15-0400 Diastolic blood pressure 68 mm[Hg] Deanna Plotts ELECTRICAL INSPECTOR.CNM Work Phone: [facility] 11-29-2024 09:15-0400 Systolic blood pressure 100 mm[Hg] Deanna Plotts ELECTRICAL INSPECTOR.CNM Work Phone: [facility] 11-20-2024 13:25-0400 Body mass index (BMI) [Ratio] 25.13 kg/m2 Mattie Harman MD Work Phone: [facility] 11-20-2024 13:25-0400 Body weight 66.86 kg Mattie Harman MD Work Phone: [facility] 11-20-2024 13:25-0400 Diastolic blood pressure 60 mm[Hg] Mattie Harman MD Work Phone: [facility] 11-20-2024 13:25-0400 Systolic blood pressure 100 mm[Hg] Mattie Harman MD Work Phone: [facility] 11-15-2024 14:48-0400 Body mass index (BMI) [Ratio] 24.72 kg/m2 Eliana Wong MD Work Phone: [facility] 11-15-2024 14:48-0400 Body weight 65.77 kg Eliana Wong MD Work Phone: [facility] 11-15-2024 14:48-0400 Diastolic blood pressure 68 mm[Hg] Eliana Wong MD Work Phone: [facility] 11-15-2024 14:48-0400 Systolic blood pressure 108 mm[Hg] Eliana Wong MD Work Phone: [facility] 10-25-2024 13:34-0400 Body mass index (BMI) [Ratio] 24.21 kg/m2 Eliana Wong MD Work Phone: [facility] 10-25-2024 13:34-0400 Body weight 64.41 kg Eliana Wong MD Work Phone: [facility] 10-25-2024 13:34-0400 Diastolic blood pressure 66 mm[Hg] Eliana Wong MD Work Phone: [facility] 10-25-2024 13:34-0400 Systolic blood pressure 100 mm[Hg] Eliana Wong MD Work Phone: [facility] 09-29-2024 11:30-0400 Body mass index (BMI) [Ratio] 23.7 kg/m2 Saloni Zuniga MD Work Phone: [facility] 09-29-2024 11:30-0400 Body weight 63.05 kg Saloni Zuniga MD Work Phone: [facility] 09-29-2024 11:30-0400 Diastolic blood pressure 62 mm[Hg] Saloni Zuniga MD Work Phone: [facility] 09-29-2024 11:30-0400 Systolic blood pressure 114 mm[Hg] Saloni Zuniga MD Work Phone: [facility] 09-15-2024 10:00-0400 Body mass index (BMI) [Ratio] 23.53 kg/m2 Sabrina Campos APRN.CNM Work Phone: [facility] 09-15-2024 10:00-0400 Body weight 62.6 kg Sabrina Campos ELECTRICAL INSPECTOR.CNM Work Phone: [facility] 09-15-2024 10:00-0400 Diastolic blood pressure 62 mm[Hg] Sabrina Campos ELECTRICAL INSPECTOR.CNM Work Phone: [facility] 09-15-2024 10:00-0400 Systolic blood pressure 108 mm[Hg] Sabrina Campos ELECTRICAL INSPECTOR.CNM Work Phone: [facility] 08-17-2024 14:25-0500 Body mass index (BMI) [Ratio] 22.68 kg/m2 Lisbeth Morris MD Work Phone: [facility] 08-17-2024 14:25-0500 Body weight 60.33 kg Lisbeth Morris MD Work Phone: [facility] 08-17-2024 14:25-0500 Diastolic blood pressure 60 mm[Hg] Lisbeth Morris MD Work Phone: [facility] 08-17-2024 14:25-0500 Systolic blood pressure 106 mm[Hg] Lisbeth Morris MD Work Phone: [facility] 07-26-2024 13:45-0500 Body height 163.1 cm Loraine Haury ELECTRICAL INSPECTOR.MACHINE SIGN WRITER Work Phone: [facility] 07-26-2024 13:45-0500 Body mass index (BMI) [Ratio] 22 kg/m2 Loraine Haury ELECTRICAL INSPECTOR.MACHINE SIGN WRITER Work Phone: [facility] 07-26-2024 13:45-0500 Body weight 58.51 kg Loraine Haury ELECTRICAL INSPECTOR.MACHINE SIGN WRITER Work Phone: [facility] 07-26-2024 13:45-0500 Diastolic blood pressure 60 mm[Hg] Loraine Haury ELECTRICAL INSPECTOR.MACHINE SIGN WRITER Work Phone: [facility] 07-26-2024 13:45-0500 Systolic blood pressure 110 mm[Hg] Loraine Haury ELECTRICAL INSPECTOR.MACHINE SIGN WRITER Work Phone: [facility] Encounters Encounter Date Encounter Type Care Provider Facility Start: 11-29-2024 End: 11-29-2024 Patient encounter procedure Deanna Lin APRN.CNM Work Phone: OB/Gynecology Comment on above: Supervision of high risk due to social problems, third trimester (HCC) (Primary Dx); Depression affecting (HCC); Uterine size-date discrepancy, third trimester (HCC); 39 weeks gestation of (HCC); Positive GBS test Start: 11-29-2024 End: 11-29-2024 ambulatory DEANNA LIN Facility:[facility] Start: 11-28-2024 End: 11-28-2024 ambulatory Izabel Priest MA [facility] [place] Start: 11-28-2024 End: 11-28-2024 Patient encounter procedure Izabel Priest MA [facility] Comment on above: Population Health Na vigation Outreach (Ob/peds) Start: 11-20-2024 End: 11-20-2024 Patient encounter procedure Mattie Harman MD Work Phone: OB/Gynecology Comment on above: Supervision of high risk due to social problems, third trimester (HCC) (Primary Dx); 38 weeks gestation of (HCC); Depression affecting (HCC) Start: 11-20-2024 End: 11-20-2024 ambulatory MATTIE HARMAN Facility:[facility] Start: 11-17-2024 End: 11-21-2024 ambulatory SHARMILA CHAUDHARI DO Facility:[facility] Start: 11-15-2024 End: 11-15-2024 Patient encounter procedure Eliana Wong MD Work Phone: OB/Gynecology Comment on above: Supervision of high risk due to social problems, third trimester (HCC) (Primary Dx); Depression affecting (HCC); Uterine size-date discrepancy, third trimester (HCC); 37 weeks gestation of (HCC) Start: 11-15-2024 End: 11-15-2024 ambulatory ELIANA WONG Facility:[facility] Start: 11-08-2024 End: 11-08-2024 ambulatory DEANNA LIN Facility:[facility] Start: 10-26-2024 End: 11-01-2024 Telephone encounter Tere Elise [employer] SAL[employer] ASSOCIATE Navigation Start: 10-25-2024 End: 10-25-2024 Patient encounter procedure Whi [employer] Maternal Medicine Comment on above: Encounter for ultras ound to check growth (HCC) (Primary Dx); Uterine size-date discrepancy, third trimester (HCC); 34 weeks gestation of (HCC) Supervision of high risk due to social problems, third trimester (HCC) (Primary Dx); Uterine size-date discrepancy, third trimester (HCC); 34 weeks gestation of (HCC) Start: 10-25-2024 End: 10-25-2024 ambulatory LISBETH MORRIS Facility:[facility] Start: 10-13-2024 End: 10-13-2024 ambulatory LISBETH MORRIS Facility:[facility] Start: 09-29-2024 End: 09-29-2024 ambulatory SALONI ZUNIGA Facility:[facility] Start: 09-29-2024 End: 09-29-2024 Patient encounter procedure Saloni Zuniga MD Work Phone: OB/Gynecology Comment on above: 31 weeks gestation o f (HCC) (Primary Dx); Depression affecting (HCC); Encounter for supervision of normal first in third trimester ([facility]) Start: 09-18-2024 End: 11-18-2024 Follow-up encounter Radha Albright MD Work Phone: OB/Gynecology Start: 09-15-2024 End: 09-15-2024 Patient encounter procedure Sabrina Campos APRN.CNM Work Phone: OB/Gynecology Comment on above: Encounter for superv ision of normal first in third trimester (Primary Dx); 29 weeks gestation of ; Depression affecting Start: 09-15-2024 End: 09-15-2024 ambulatory SABRINA CAMPOS Facility:[facility] Start: 08-17-2024 End: 08-17-2024 ambulatory LISBETH MORRIS Facility:[facility] Start: 08-17-2024 End: 08-17-2024 Patient encounter procedure Lisbeth Morris MD Work Phone: OB/Gynecology Comment on above: Encounter for superv ision of normal first in second trimester (Primary Dx); 25 weeks gestation of ; Screening for diabetes mellitus Start: 08-14-2024 End: 08-14-2024 Patient encounter procedure [employer] Maternal Medicine Comment on above: Encounter for anatomic survey (Primary Dx); 24 weeks gestation of Start: 08-14-2024 End: 08-14-2024 ambulatory LORAINE VALERIO Facility:[facility] Start: 07-26-2024 End: 07-26-2024 ambulatory LORAINE VALERIO Facility:[facility] Start: 07-26-2024 End: 07-26-2024 Patient encounter procedure Loraine Valerio ELECTRICAL INSPECTOR.MACHINE SIGN WRITER Work Phone: OB/Gynecology Comment on above: Encounter for superv ision of normal first in second trimester (Primary Dx); 21 weeks gestation of ; Screen for STD (sexually transmitted disease); Screening for cervical cancer; with care elsewhere in second trimester; Depression affecting ; Nausea and vomiting during ; Heartburn during in second trimester Start: 07-17-2024 End: 07-19-2024 Telephone encounter Saloni Bruno RN Maternal Medicine Comment on above: [employer] Brander - O ther (Initial OB RN CC pool/) Start: 07-07-2024 End: 07-07-2024 ambulatory SHARMILA CHAUDHARI DO [facility] Start: 07-07-2024 End: 07-07-2024 Patient encounter procedure YIFAN SALMON ELECTRICAL INSPECTOR-CNM [facility] Start: 05-26-2024 End: 05-26-2024 ambulatory SHARMILA CHAUDHARI DO [facility] Start: 05-26-2024 End: 05-26-2024 Patient encounter procedure YIFAN SALMON ELECTRICAL INSPECTOR-CNM [facility] Start: 04-18-2024 End: 04-18-2024 ambulatory SHARMILA CHAUDHARI DO [facility] Start: 04-18-2024 End: 04-18-2024 Patient encounter procedure YIFAN SALMON ELECTRICAL INSPECTOR-CNM [facility] Start: 07-06-2023 End: 07-06-2023 ambulatory SHARMILA CHAUDHARI DO Facility:[facility] Start: 07-06-2023 End: 07-06-2023 Patient encounter procedure SHARMILA CHAUDHARI DO [facility] Start: 04-21-2023 End: 04-21-2023 ambulatory SHARMILA CHAUDHARI DO Facility:[facility] Start: 04-21-2023 End: 04-21-2023 Patient encounter procedure SHARMILA CHAUDHARI DO [facility] Start: 03-21-2022 End: 03-21-2022 Patient encounter procedure SHARMILA CHAUDHARI DO [facility] Start: 03-20-2022 End: 03-24-2022 Outreach Lab SHARMILA CHAUDHARI DO [facility] Start: 07-27-2017 Ambulatory Sarthak Moeller Facility :[facility] Start: 04-28-2017 End: 04-28-2017 Emergency department patient visit CHRISTINA MCCALLUM Facility:[facility] Start: 04-26-2017 Ambulatory -PURVI MARIO Facility:[facility] Start: 03-01-2017 Evaluation and management of inpatient Bechara G Tabet Facility:[facility] Procedures Date Procedure Procedure Detail Performing Clinician Start: 11-29-2024 Urnls dip stick/tabl et rgnt non-auto w/o micrscp Deanna Lin APRN.CNM Work Phone: Start: 11-20-2024 Urnls dip stick/tabl et rgnt non-auto w/o micrscp Mattie Harman MD Work Phone: Start: 11-15-2024 Urnls dip stick/tabl et rgnt non-auto w/o micrscp Eliana Wong MD Work Phone: Start: 10-25-2024 Urnls dip stick/tabl et rgnt non-auto w/o micrscp Eliana Wong MD Work Phone: Start: 10-25-2024 Us preg uterus after 1st trimest 06/21 gestation Lisbeth Morris MD Work Phone: Start: 08-14-2024 Us preg uterus after 1st trimest 06/21 gestation Loraine Valerio ELECTRICAL INSPECTOR.MACHINE SIGN WRITER Work Phone: Start: 05-26-2024 Antibody screen Lisbeth Morris MD Work Phone: Start: 05-26-2024 CBC panel - Blood by Automated count [facility] Provider Start: 05-26-2024 GONORRHEA/CHLAMYDIA NAAT [facility] Provider Start: 05-26-2024 HEP B SURF AG SCRN [facility] Provider Start: 05-26-2024 HIV 1 2 COMBO(AG/AB) ,WITH REFLEX TO DIFFERENTIATION [facility] Provider Start: 05-26-2024 RPR SCREEN [facility] Provid er Start: 05-26-2024 RUBELLA IGG AB [facility] Prov ider Start: 05-26-2024 Thyrotropin [Units/v olume] in Serum or Plasma [facility] Provider Start: 05-26-2024 TYPE + SCREEN (EXTERNAL LAB) [facility] Provider Start: 05-26-2024 VARICELLA ZOSTER IGG [facility]c f Provider Start: 02-18-2017 Adenoid excision JOVON CHAUDHARI DO Start: 02-18-2017 Tonsillectomy SHARMILA LAYNE DO Plan of Treatment Date Care Activity Detail Author Start: 2075 RSV Vaccine (1 - 1-d ose 75+ series) RSV Vaccine (1 - 1-dose 75+ series) [facility] Start: 02-19-2025 Influenza vaccination Influenz a Vaccine (Season Ended) [facility] Start: 12-04-2024 End: 12-04-2024 Patient encounter procedure 12/04/2024 4:30 PM EDT Routine Office Visit OB/Gynecology [address] [place] [address] Sabrina Campos APRN.CNM [address] [place] [address] [facility] Comment on above: [facility] Start: 11-29-2024 End: 11-29-2024 Patient encounter procedure 11/29/2024 9:30 AM EDT Routine Office Visit OB/Gynecology [address] [place] [address] Deanna Lin APRN.CNM [address] [place] [address] OB OB/Gynecology Comment on above: OB Start: 11-20-2024 End: 11-20-2024 Patient encounter procedure 11/20/2024 1:30 PM EDT Routine Office Visit OB/Gynecology [address] [place] [address] Mattie Harman MD [address] [place] [address] OB OB/Gynecology Comment on above: OB Start: 11-08-2024 End: 11-08-2024 Patient encounter procedure 11/08/2024 1:00 PM EDT Routine Office Visit OB/Gynecology [address] [place] [address] Deanna Lin APRN.CNM [address] [place] [address] OB OB/Gynecology Comment on above: OB Start: 10-13-2024 End: 10-13-2024 Patient encounter procedure 10/13/2024 2:30 PM EDT Routine Office Visit OB/Gynecology [address] [place] [address] Lisbeth Morris MD [address] [place] [address] OB OB/Gynecology Comment on above: OB Start: 09-29-2024 End: 09-29-2024 Patient encounter procedure 09/29/2024 11:10 AM EDT Routine Office Visit OB/Gynecology [address] [place] [address] Saloni Zuniga MD [address] [place] [address] OB OB/Gynecology Comment on above: OB Start: 09-15-2024 End: 09-15-2024 Patient encounter procedure 09/15/2024 10:15 AM EDT Routine Office Visit OB/Gynecology [address] [place] [address] Sabrina Campos APRN.CNM [address] [place] [address] OB Routine OB/Gynecology Comment on above: OB Routine Start: 09-15-2024 End: 09-15-2024 ambulatory 09/15/2024 10:00 AM EDT Results Only [facility] [address] [place] [address] Glucose test and Labs [facility] Comment on above: Glucose test and Lab s Start: 08-17-2024 End: 08-17-2024 Patient encounter procedure OB/Gynecology Comment on above: Anatomy/OB transfer care Anatomy/OB transfer care-Outside records in [place] Start: 08-17-2024 End: 11-16-2024 ANEMIA REFLEX PANEL ANEMIA REFLEX PANEL Lab Routine Encounter for supervision of normal first in second trimester 25 weeks gestation of Screening for diabetes mellitus Expected: 08/17/2024, Expires: 11/16/2024 [facility] Comment on above: Expected: 08/17/2024 , Expires: 11/16/2024 Start: 08-17-2024 End: 08-17-2025 GESTATIONAL GLUCOSE SCREEN, 1-HOUR, 50 GRAM, NON-FASTING GESTATIONAL GLUCOSE SCREEN, 1-HOUR, 50 GRAM, NON-FASTING Lab Routine Encounter for supervision of normal first in second trimester 25 weeks gestation of Screening for diabetes mellitus Expected: 08/17/2024, Expires: 08/17/2025 [facility] Work Phone: Comment on above: Expected: 08/17/2024 , Expires: 08/17/2025 Start: 08-17-2024 End: 11-16-2024 Hepatitis C virus Ab [Presence] in Serum HEPATITIS C ANTIBODY IA WITH CONFIRMATION Lab Routine Encounter for supervision of normal first in second trimester Expected: 08/17/2024, Expires: 11/16/2024 [facility] Comment on above: Expected: 08/17/2024 , Expires: 11/16/2024 Start: 08-17-2024 End: 08-17-2025 SYPHILIS TREPONEMAL W/REFLEX SYPHILIS TREPONEMAL W/REFLEX Lab Routine Encounter for supervision of normal first in second trimester 25 weeks gestation of Screening for diabetes mellitus Expected: 08/17/2024, Expires: 08/17/2025 [facility] Comment on above: Expected: 08/17/2024 , Expires: 08/17/2025 Start: 08-14-2024 End: 08-14-2024 Patient encounter procedure 08/14/2024 2:30 PM EST Routine Office Visit Maternal Medicine [address] [place] [address] Anatomy [facility] Comment on above: Anatomy Start: 07-26-2024 End: 10-25-2024 CARRIER SCREEN, STANDARD CARRIER SCREEN, STANDARD Lab Routine Encounter for supervision of normal first in second trimester 21 weeks gestation of Expected: 07/26/2024, Expires: 10/25/2024 [facility] Comment on above: Expected: 07/26/2024 , Expires: 10/25/2024 Start: 07-26-2024 End: 10-25-2024 Hemoglobin A1c in Blood HEMOGLOBIN A1C Lab Routine Encounter for supervision of normal first in second trimester Expected: 07/26/2024, Expires: 10/25/2024 [facility] Work Phone: Comment on above: Expected: 07/26/2024 , Expires: 10/25/2024 Start: 07-26-2024 End: 07-26-2025 OBSTETRIC ULTRASOUND WHI OBSTETRIC ULTRASOUND WHI Anc Imaging Routine Encounter for supervision of normal first in second trimester Expected: 07/26/2024, Expires: 07/26/2025 [facility] Comment on above: Expected: 07/26/2024 , Expires: 07/26/2025 Start: 07-26-2024 End: 07-26-2024 Patient encounter procedure 07/26/2024 1:45 PM EST Initial Office Visit OB/Gynecology [address] [place] [address] Loraine Valerio APRN.MACHINE SIGN WRITER [address] [place] [address] est care/expecting/last cycle early jan OB/Gynecology Comment on above: est care/expecting/l ast cycle early jan Start: 02-20-2024 Covid-19 Vaccine ( season) Covid-19 Vaccine () [facility] Start: 02-20-2024 Influenza vaccination Influenza Vacc ine (#1) [facility] Start: 04-11-2023 Urine microalbumin profile DTaP,Tdap,Td Vaccine (7 - Td or Tdap) [facility] Start: 2021 Screening for malign ant neoplasm of cervix Cervical Cancer Screening [facility] Start: 2019 Hepatitis B Vaccine (1 of 3 - 19+ 3-dose series) Hepatitis B Vaccine (1 of 3 - 19+ 3-dose series) [facility] Start: 2019 Urine microalbumin profile DTaP,Tdap,Td Vaccine (1 - Tdap) [facility] Start: 2018 Anxiety Screening Anxiety Screening [facility] Start: 2018 Depression Screening Depression Scre ening [facility] Start: 2018 Hepatitis C screening Hepatitis C Sc david [facility] Start: 2018 HIV screening HIV Screening [facility] Start: 2016 Meningococcal B Vacc ine: Consider Based On Risk (1 of 2 - Patient Seeks Protection) Meningococcal B Vaccine: Consider Based On Risk (1 of 2 - Patient Seeks Protection) [facility] Start: 2015 HPV Vaccine (1 - 3-d ose series) HPV Vaccine (1 - 3-dose series) [facility] Start: 2014 Peds To Adult Transi tion Annual Assessment Peds To Adult Transition Annual Assessment [facility] Start: 2012 Peds To Adult Transi tion Initial Discussion Peds To Adult Transition Initial Discussion [facility] Immunizations Immunization Date Immunization Notes Care Provider Fa latanya 04-21-2023 influenza, injectabl e, quadrivalent, contains preservative; Translations: [Fluarix PF Quadrivalent ] SHARMILA CHAUDHARI DO [facility] 04-21-2023 influenza virus vacc ine, unspecified formulation Loraine Teodoro MOREIRA.MACHINE SIGN WRITER Work Phone: [facility] 08-04-2018 influenza virus vacc ine, unspecified formulation SHARMILA CHAUDHARI DO [facility] 06-16-2016 influenza virus vacc ine, unspecified formulation SHARMILA CHAUDHARI DO [facility] 04-08-2015 hepatitis A vaccine, pediatric dosage, unspecified formulation SHARMILA CHAUDHARI DO [facility] 04-08-2015 Human Papillomavirus Quadval SHARMILA CHAUDHARI DO [facility] 04-08-2015 influenza virus vacc ine, unspecified formulation SHARMILA CHAUDHARI DO [facility] 03-07-2014 hepatitis A vaccine, pediatric dosage, unspecified formulation SHARMILA CHAUDHARI DO [facility] 03-07-2014 Human Papillomavirus Quadval SHARMILA CHAUDHARI DO [facility] 03-07-2014 influenza virus vacc ine, unspecified formulation SHARMILA CHAUDHARI DO [facility] 04-11-2013 Human Papillomavirus Quadval SHARMILA CHAUDHARI DO [facility] 04-11-2013 meningococcal polysaccharide (groups A, C, Y and W-135) diphtheria toxoid conjugate vaccine (MCV4P) SHARMILA CHAUDHARI DO [facility] 04-11-2013 tetanus and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 Assigned YAZ: 11/30/2024 General Evaluation Cardiac activity present. FHR 157 bpm. movements: present. Presentation: cephalic Placenta: Placental site: posterior, fundal Umbilical cord: Cord vessels: 3 vessel cord Amniotic fluid: Amount of AF: normal amount. MVP 5.3 cm. PIO 16.9 cm. Q1 3.1 cm, Q2 3.2 cm, Q3 5.3 cm, Q4 5.3 cm Growth Overview Exam date GA BPD (mm) HC (mm) AC (mm) FL (mm) HL (mm) EFW (g) 08/14/2024 24w 4d 61.1 53% 228.5 53% 214.6 82% 46.1 86% 42.6 73% 825 82% 10/25/2024 34w 6d 87.6 67% 315.9 44% 329.6 95% 67.8 67% 2821 78% Biometry Standard BPD 87.6 mm 35w 3d 67% Hadlock OFD 110.3 mm 33w 1d 35% Nicolaides HC 315.9 mm 34w 4d 44% Elsie AC 329.6 mm 36w 6d 95% Hadlock Femur 67.8 mm 34w 4d 67% Elsie EFW 2,821 g 36w 0d 78% Hadlock EFW (lb) 6 lb EFW (oz) 4 oz EFW by: Hadlock (HC-AC-FL) Extended Head Of History 4.9 mm Extremities / Bony Struc FL / HC 0.21 Other Structures FHR 157 bpm Anatomy Lateral ventricles: normal Cavum septi pellucidi: normal Cerebellum: normal Cisterna magna: normal 4-chamber view: normal RVOT view: normal LVOT view: normal 3-vessel view: normal Heart / Thorax Situs: situs solitus (normal) Diaphragm: normal Stomach: normal Kidneys: normal Bladder: normal sex: female Wants to know sex: yes Performed By: Sheyla Flynn RDMS, RVT Read By: Preeti Lee M.D. [facility] 10-25-2024 Instructions Ara Perla MA - 10/25/2024 1:13 PM EDT SEQUENTIAL SCREENINGS The [facility] offers sequential screenings for women who are interested in screenings for chromosomal abnormalities and certain defects during a . The sequential screen combines ultrasound and blood tests to determine the risk of chromosomal abnormalities, including Down's Syndrome (Trisomy 21) and Trisomy 18, as well as open neural tube defects including spina bifida. Ultrasound examination is performed between 11 weeks and 13 weeks gestational age. Blood tests are drawn after the ultrasound and again later in the between 15 and 21 weeks gestational age. Please let your physician know if you are interested in this testing. It will require an appointment with our senior quality technician. This is not an ultrasound performed by a physician in our office during a routine visit. SIGNS AND SYMPTOMS OF LABOR 1. Contractions every 10 minutes or more often 2. Clear, pink, or brownish fluid (water) leaking from vagina 3. Feeling that baby is pushing down, pressure 4. Low, dull backache 5. Cramps that feel like a period 6. Cramps with or without diarrhea If you notice any of the above symptoms, contact our office at [phone] and ask to speak with a nurse. After hours, you can call doctors registry at [phone] OR call [facility] at [phone] and ask to have the doctor station captain paged. If you consider this an emergency, dial 9-1-1 or go to your nearest emergency department. NEED HELP? Are you dealing with a violent or abusive relationship? Are you a victim of rape or sexual assult? Call [facility] ([place]) 24 hour Crisis Hotline: 940.719.4765 or 798-494-5179. MANUAL Your Guide to a Healthy manual is now on-line. Visit [email or web address] ncyGuide to download your free copy documented in this encounter [facility] 10-19-2024 Note HNO ID: [id number] Author: HATTIE PLUNKETT LISW Service: ? Author Type: Jd Edwards Type: Progress Notes Filed: 10/19/2024 17:34 Note Text: Summary: Integrated Mental Health Plan of Care Integrated Mental Health Plan of Care If not connected to Care are they agreeable to referral?No declined referral Patient outreached X3 with no contact Current priority status of the referral Medium Additional information Phone call, left messages x3, MC message sent, unable to reach patient. [facility] 09-29-2024 Progress note Formatting of t his note might be different from the original. S: Melquiades Mustafa is a 24 year old female who presents at 11/30/2024, by Ultrasound for a routine visit. Denies headache, visual changes, chest pain, shortness of breath, vaginal bleeding, leakage of fluid, or dysuria. Feeling well, no complaints. Good movement, No contractions O: See flow sheet Gen: No apparent distress Abd: Gravid, nontender ASSESSMENT/PLAN: 1. 31 weeks gestation of ([facility]) - ICD9: V22.2, ICD10: Z3A.31 (primary diagnosis) PTL precautions 2. Depression affecting ([facility]) - ICD9: 648.40, 311, ICD10: O99.340, F32.A stable 3. Encounter for supervision of normal first in third trimester ([facility]) - ICD9: V22.0, ICD10: Z34.03 Saloni Zuniga MD [facility] 09-29-2024 Miscellaneous Notes S: Melquiades Mustafa is a 24 year old female who presents at 11/30/2024, by Ultrasound for a routine visit. Denies headache, visual changes, chest pain, shortness of breath, vaginal bleeding, leakage of fluid, or dysuria. Feeling well, no complaints. Good movement, No contractions O: See flow sheet Gen: No apparent distress Abd: Gravid, nontender ASSESSMENT/PLAN: 1. 31 weeks gestation of ([facility]) - ICD9: V22.2, ICD10: Z3A.31 (primary diagnosis) PTL precautions 2. Depression affecting ([facility]) - ICD9: 648.40, 311, ICD10: O99.340, F32.A stable 3. Encounter for supervision of normal first in third trimester ([facility]) - ICD9: V22.0, ICD10: Z34.03 Saloni Zuniga MD documented in this encounter [facility] 09-29-2024 Instructions Danielle Good MA - 09/29/2024 11:27 AM EDT SEQUENTIAL SCREENINGS The [facility] offers sequential screenings for women who are interested in screenings for chromosomal abnormalities and certain defects during a . The sequential screen combines ultrasound and blood tests to determine the risk of chromosomal abnormalities, including Down's Syndrome (Trisomy 21) and Trisomy 18, as well as open neural tube defects including spina bifida. Ultrasound examination is performed between 11 weeks and 13 weeks gestational age. Blood tests are drawn after the ultrasound and again later in the between 15 and 21 weeks gestational age. Please let your physician know if you are interested in this testing. It will require an appointment with our senior quality technician. This is not an ultrasound performed by a physician in our office during a routine visit. SIGNS AND SYMPTOMS OF LABOR 1. Contractions every 10 minutes or more often 2. Clear, pink, or brownish fluid (water) leaking from vagina 3. Feeling that baby is pushing down, pressure 4. Low, dull backache 5. Cramps that feel like a period 6. Cramps with or without diarrhea If you notice any of the above symptoms, contact our office at [phone] and ask to speak with a nurse. After hours, you can call doctors registry at [phone] OR call [facility] at [phone] and ask to have the doctor station captain paged. If you consider this an emergency, dial 91-8 or go to your nearest emergency department. NEED HELP? Are you dealing with a violent or abusive relationship? Are you a victim of rape or sexual assult? Call [facility] ([place]) 24 hour Crisis Hotline: 162.993.3254 or 717-520-9350. MANUAL Your Guide to a Healthy manual is now on-line. Visit [email or web address] ncyGuide to download your free copy documented in this encounter [facility] 09-15-2024 Progress note Formatting of t his note might be different from the original. IVONNE-S: Melquiades Mustafa is a 24 year old female who presents at 29w1d with YAZ:11/30/2024, by Ultrasound for a routine visit. Denies headache, visual changes, chest pain, shortness of breath, vaginal bleeding, leakage of fluid, or dysuria. Feeling well, no complaints. O: See flow sheet Gen: No apparent distress Abd: Gravid, nontender [place] Depression Scale Total: 25 ASSESSMENT/PLAN: 1. Encounter for supervision of normal first in third trimester -Planning [facility] for delivery and interested in waterbirth 2. 29 weeks gestation of - 1 hour GCT, CBC, and RPR today - AB positive - TDAP declines - LARC form reviewed and signed. Patient declines - Opioid screen negative - plan form discussed and given to patient. Patient desires unmedicated 3. Depression affecting -[facility] for counseling -Consult for Women's Behavioral Health placed and open to discussing medication. PTL precautions reviewed and when to call RTO in 2 weeks Sbarina Campos APRN.CNM [facility] 09-15-2024 Note HNO ID: [id number] Author: SABRINA CAMPOS APRN.CNM Service: ? Author Type: Skein Yarn Dyer Helper Type: Progress Notes Filed: 09/15/2024 18:59 Note Text: IVONNE- [facility] 09-15-2024 History of Present illness Narrative IVONNE- documented in this encounter [facility] 09-15-2024 Miscellaneous Notes IVONNE-S: Melquiades Mustafa is a 24 year old female who presents at 29w1d with YAZ:11/30/2024, by Ultrasound for a routine visit. Denies headache, visual changes, chest pain, shortness of breath, vaginal bleeding, leakage of fluid, or dysuria. Feeling well, no complaints. O: See flow sheet Gen: No apparent distress Abd: Gravid, nontender [place] Depression Scale Total: 25 ASSESSMENT/PLAN: 1. Encounter for supervision of normal first in third trimester -Planning [facility] for delivery and interested in waterbirth 2. 29 weeks gestation of - 1 hour GCT, CBC, and RPR today - AB positive - TDAP declines - LARC form reviewed and signed. Patient declines - Opioid screen negative - plan form discussed and given to patient. Patient desires unmedicated 3. Depression affecting -[facility] for counseling -Consult for Women's Behavioral Health placed and open to discussing medication. PTL precautions reviewed and when to call RTO in 2 weeks Sabrina Campos APRN.CNM documented in this encounter [facility] 09-15-2024 Instructions Sabrina Campos APRN.CNM - 09/15/2024 9:45 AM EDT Here are some links for wonderful Providers here in the community and surrounding areas. Do not hesitate to contact their offices, many are offering virtual visits during this time. 5-156-8-MQKS7RDWG - [place] Maternal Mental Health Hotline If you are in suicidal crisis, please call or text 9-419-044-TALK ( ) or visit the National Suicide Prevention Lifeline website. [facility].gov [facility] Psychology, Psychiatry, Counseling Connect with therapist/ can do virtual visits [phone] Referral to the [facility]'s [facility] To schedule an appointment, please call the [place] for Behavioral Health Appointment Line: [phone] option 1 [facility] - [place], [place] [address] [place] [address] [facility] [address] [place] [address] [facility] [address] [place] [address] [facility] [address] [place], [place] [id number] Jess Blandon MD [address] [place], [place] [id number] [facility] [address] [facility], [address] [place] [address] [facility] [address] [place] [address] [facility] [place] / [place] [phone]/ [phone] Kristina Zambrano [address] [facility] [address] [facility] [phone] [facility] [place] / [place] [phone] Behavioral health services of [facility] [address] [place] [address]/ [place] [phone] Charli Augustin, MISA, [facility] Works[facility], telehealth and at home visits. [phone] [facility] counseling center 20 locations [place], [place], [place], [place], [place], [place], [place], [facility], [place], [place], [place], [place], [place], [place], [facility], [place], [place] ,[facility], [place], Home,[facility], [facility], [place], [facility], [facility], [place] www.CardioVIPcoCyntellect.co [phone] Psychotherapy resources outside of [facility] are listed below [facility]ival [facility] Sabrina Messina, SOLAR SALES ASSOCIATE, AIR CONDITIONING MECHANIC-S [phone] Revival.clientsecure.nc [address] [place] [phone] *Trauma therapy, EMDR, in person or virtual visit. Accepts some insurances. Abigail Stewart [phone] [facility] Battery Medics [place] [address] Entelec Control Systems Psychotherapy Web: https://www.Think1stBoxing.com/ Support International Online Provider Directory https://Topadmit/ Insight Counseling https://DriveFactor/ Partners for Behavioral Health and Wellness Web: https://Webtalk/ rPath for Effective Living Web: https://Atlantium/ LifeStance Web: https://Qreativ Studio/location/s andres/[place]/ Signature Health Web: https://Holographic Projection for Architecture.Allen Brothers.or / [facility] Web: https://Anterra Energy.IntuiLab/ Recovery Resources Mental health and substance abuse help Web: https://www.NeuroSigmasPosiq [facility] [address] [facility] [address] www.Lander Automotive & RESOURCES Support International Direct peer support and connection to professional resources Non-Emergency Helpline Phone: / Text: [phone] Web: https://www..net/ Online Provider Directory: https://Topadmit/ Online Support Meetings: https://www..net/get-he lp/jqa-vtpfkm-wwlefop-meetings/ AIDE Baby and Threshing Department Supervisor Services Web: https://wwwTopFloor/ MotherToBaby Expert information on medication use during and Text: [phone] Web: https://mothertobaby.org/ NATIONAL REGISTRY FOR PSYCHIATRIC MEDICATIONS Currently studying the safety of antidepressants, ADHD medications and atypical antipsychotics taken during TO PARTICIPATE CALL TOLL-FREE: Web: https://womensmentalhealth.org/re search/pregnancyregistry/ Support Groups: [facility]- Follow on facebook Baby Bistro support group led by [facility] department Resilient Mamas - Support Group [facility] Citys.org The POEM support group [phone] Www.poemonline.org Follow on facebook - WALTER tejada Online support meetings PSI https://www..net/get-he lp/gml-hmgtds-lbpiish-meetings/ CC mommy and me virtual support group 11:30-1pm Support for mothers and new babies and toddlers [place] childbirth education: Childbirth @cc.org or call [phone] Support groups Online support meetings PSI https://www..net/get-he lp/igy-vjfndp-wxjovlq-meetings/ Here are the support groups they offer: Support of parents of 1 to 4 years old children POEM ( Outreach and Encouragement for Moms) offers free support for mothers experiencing depression, anxiety, and other mood and anxiety disorders. Masks are recommended but not required. No pre-registration required. Babies in arms welcome. meetings now take place on the and Wednesday of each month Location: [facility] [address] [place] [address] Room 122 (library room) 7-8:00 p.m. When you [facility] the [facility] parking lot off of [address] the entrance door closest to our meeting room is on the front of the building toward the right. For those who are more comfortable with a virtual platform, POEM offers online support group options several days of the week. To register for an online group or to find out more about POEM, website at: https://People and PagesaoAnchor Therapeuticso.org/get-help/mate nztt-pofjrh-hmyulh/poem-services/ offer a confidential helpline: private Facebook group is called WALTER Tejada Here are the groups they offer: Traumatic childbirth resources: Http://pattch.org/ https://www.TraveemelvinVestiaire CollectivesohailWorldHeart.Go Try It On/ CRISIS: CRISIS HOTLINE [phone], 911 or go to the nearest ER. [facility] [phone] / [facility] [phone] https://www.hospital for special surgeryrb.org Crisis text line text the word HOME to 540494 SIGNS AND SYMPTOMS OF LABOR 1. Contractions every 10 minutes or more often 2. Clear, pink, or brownish fluid (water) leaking from vagina 3. Feeling that baby is pushing down, pressure 4. Low, dull backache 5. Cramps that feel like a period 6. Cramps with or without diarrhea If you notice any of the above symptoms, contact our office at [phone] and ask to speak with a nurse. After hours, you can call doctors registry at [phone] OR call [facility] at [phone] and ask to have the doctor station captain paged. If you consider this an emergency, dial 9-1-1 or go to your nearest emergency department. NEED HELP? Are you dealing with a violent or abusive relationship? Are you a victim of rape or sexual assult? Call [facility] ([place]) 24 hour Crisis Hotline: 108.871.1696 or 024-142-7202. MANUAL Your Guide to a Healthy manual is now on-line. Visit our [facility] hospital[facility].org/HealthyPregna ncyGuide to download your free copy documented in this encounter [facility] 08-17-2024 Progress note Formatting of t his note might be different from the original. KJ - S: Melquiades denies LOF, contractions or vaginal bleeding. O: 25w0d, see flow sheet SENSITIVE EXAM: Sensitive exam not performed. A/P: Assessment & Plan Encounter for supervision of normal first in second trimester Orders: GESTATIONAL GLUCOSE SCREEN, 1-HOUR, 50 GRAM, NON-FASTING; Future SYPHILIS TREPONEMAL W/REFLEX; Future ANEMIA REFLEX PANEL; Future HEPATITIS C ANTIBODY IA WITH CONFIRMATION; Future 25 weeks gestation of Orders: GESTATIONAL GLUCOSE SCREEN, 1-HOUR, 50 GRAM, NON-FASTING; Future SYPHILIS TREPONEMAL W/REFLEX; Future ANEMIA REFLEX PANEL; Future Screening for diabetes mellitus Orders: GESTATIONAL GLUCOSE SCREEN, 1-HOUR, 50 GRAM, NON-FASTING; Future SYPHILIS TREPONEMAL W/REFLEX; Future ANEMIA REFLEX PANEL; Future Prenatals reviewed Reviewed ultrasound result She is considering delivery at [facility] and possible water . Lisbeth Morris MD [facility] 08-17-2024 Miscellaneous Notes KJ - S: Melquiades denies LOF, contractions or vaginal bleeding. O: 25w0d, see flow sheet SENSITIVE EXAM: Sensitive exam not performed. A/P: Assessment & Plan Encounter for supervision of normal first in second trimester Orders: GESTATIONAL GLUCOSE SCREEN, 1-HOUR, 50 GRAM, NON-FASTING; Future SYPHILIS TREPONEMAL W/REFLEX; Future ANEMIA REFLEX PANEL; Future HEPATITIS C ANTIBODY IA WITH CONFIRMATION; Future 25 weeks gestation of Orders: GESTATIONAL GLUCOSE SCREEN, 1-HOUR, 50 GRAM, NON-FASTING; Future SYPHILIS TREPONEMAL W/REFLEX; Future ANEMIA REFLEX PANEL; Future Screening for diabetes mellitus Orders: GESTATIONAL GLUCOSE SCREEN, 1-HOUR, 50 GRAM, NON-FASTING; Future SYPHILIS TREPONEMAL W/REFLEX; Future ANEMIA REFLEX PANEL; Future Prenatals reviewed Reviewed ultrasound result She is considering delivery at [facility] and possible water . Lisbeth Morris MD documented in this encounter [facility] 08-17-2024 Instructions Lvi Dove MA - 08/17/2024 2:22 PM EST SEQUENTIAL SCREENINGS The [facility] offers sequential screenings for women who are interested in screenings for chromosomal abnormalities and certain defects during a . The sequential screen combines ultrasound and blood tests to determine the risk of chromosomal abnormalities, including Down's Syndrome (Trisomy 21) and Trisomy 18, as well as open neural tube defects including spina bifida. Ultrasound examination is performed between 11 weeks and 13 weeks gestational age. Blood tests are drawn after the ultrasound and again later in the between 15 and 21 weeks gestational age. Please let your physician know if you are interested in this testing. It will require an appointment with our senior quality technician. This is not an ultrasound performed by a physician in our office during a routine visit. SIGNS AND SYMPTOMS OF LABOR 1. Contractions every 10 minutes or more often 2. Clear, pink, or brownish fluid (water) leaking from vagina 3. Feeling that baby is pushing down, pressure 4. Low, dull backache 5. Cramps that feel like a period 6. Cramps with or without diarrhea If you notice any of the above symptoms, contact our office at [phone] and ask to speak with a nurse. After hours, you can call doctors registry at [phone] OR call [facility] at [phone] and ask to have the doctor station captain paged. If you consider this an emergency, dial 9-1-3 or go to your nearest emergency department. NEED HELP? Are you dealing with a violent or abusive relationship? Are you a victim of rape or sexual assult? Call [facility] 24 hour Crisis Hotline: 822.262.2404 or 367-885-0452. MANUAL Your Guide to a Healthy manual is now on-line. Visit [facility].org/HealthyPregna orvilleyGuiamada to download your free copy documented in this encounter [facility] 07-26-2024 Instructions Loraine Valerio APRN.MACHINE SIGN WRITER - 07/26/2024 1:34 PM EST Images from the original note were not included. Please select the following link to access the [facility] Your Guide to a Healthy . www.Ccf.org/healthypregnancyguide Psychotherapy Services at [facility] Call Behavioral Health Access Line at [phone] to schedule Individual psychotherapy In-person or virtual Wait time for first evaluation may be 12 or more weeks. Wait list spots may be available. Due to the high volume of patients this option is recommended if you are looking for short term acute symptom coping strategies. 2-000-7-IPVC1VRKR - [place] Maternal Mental Health Hotline If you are in suicidal crisis, please call or text 8-309-419-TALK ( ) or visit the National Suicide Prevention Lifeline website. mchb.[facility] ve[facility]asa.gov If you are in crisis, call 911 or go to your nearest Emergency Department Here are some links for wonderful Providers here in the community and surrounding areas. Do not hesitate to contact their offices, many are offering virtual visits during this time. Psychotherapy Services outside of [facility] Support International Online Provider Directory https://Saavn.Go Try It On/ - can assist in finding providers in your area that might be more extensive then the list below. [facility] - [place], [place] [address] [place] [address] [facility] [address] [place] [address] [facility] [address] [place] [address] [facility] [address] [place] [address] Jess Blandon MD [address] [place] [address] [facility] [address] [facility], [address] [place] [address] [facility] [address] [place] [address] [facility] Counseling Services [place] / [place] [phone]/ [phone] Kristina Zambrano [address] [facility] [phone] A[facility] of Counseling and Mediation [place] / Dave [phone] Behavioral health services of [facility] [address] [place] [address]/ [place] and [place] [phone] Charli Augustin, MISA, CLC Bu and Beyond Family Therapy Workshops, telehealth and at home visits. [phone] Humanistic counseling center 20 locations [place], [place], [place], [place], [place], [place], [place], [place], [place], [place], [place], [place], [place], [place], [facility], [place], [place] ,[facility], [place], Home,[facility], [place], [place], [facility], [place], [place], [place] www.[facility] [phone] Psychotherapy resources outside of [facility] are listed below [facility] Global Wine Export Psychotherapy Web: https://www.Think1stBoxing.com/ Support International Online Provider Directory https://Topadmit/ Insight Counseling https://DriveFactor/ Digital Path for Behavioral Health and Wellness Web: https://Webtalk/ Hug Energy Effective Living Web: https://Atlantium/ LifeStance Web: https://Skyline Innovations.Go Try It On/location/s andres/[place]/ Signature [facility] Web: https://www.[facility].or / [facility] Renewable Fuel Products Web: https://Anterra Energy.IntuiLab/ Recovery Resources Mental health and substance abuse help Web: https://www.NeuroSigmas.IntuiLab & RESOURCES Support International Direct peer support and connection to professional resources Non-Emergency Helpline Phone: / Text: [phone] Web: https://www..net/ Online Provider Directory: https://Topadmit/ Online Support Meetings: https://www..net/get-he lp/uqe-raearl-rubifzz-meetings/ AIDE Baby and Threshing Department Supervisor Services Web: https://www.Sotmarket/ MotherToBaby Expert information on medication use during and Text: [phone] Web: https://mothertobaby.org/ NATIONAL REGISTRY FOR PSYCHIATRIC MEDICATIONS Currently studying the safety of antidepressants, ADHD medications and atypical antipsychotics taken during TO PARTICIPATE CALL TOLL-FREE: Web: https://womenprime healthcare services – [facility] regional medical centerhealth.org/re search/pregnancyregistry/ Support Groups: [facility]- Follow on facebook Baby Bistro support group led by [facility] department Resilient Mamas - Support Group [facility] Hospital[facility].org The POEM support group [phone] Www.poemonline.org Follow on facebook - WALTER tejada Online support meetings PSI https://www..net/get-he lp/nkj-nvycay-oscvkau-meetings/ [facility] mommy and me virtual support group 11:30-1pm Support for mothers and new babies and toddlers [place] childbirth education: Childbirth @[facility].org or call [phone] CRISIS: CRISIS HOTLINE [phone], 911 or go to the nearest . [facility] [phone] / [facility] [phone] https://www.[facility].org Crisis text line text the word HOME to [id number] [facility] [address] [facility] [address] www.Lander Automotive Ai Mayen clinical counseling [address] [address] www.MemoropriAIT Bioscience.Go Try It On [phone] Holding space psychotherapy Jigna Lion SOLAR SALES ASSOCIATE AIR CONDITIONING MECHANIC-S [address] [facility] www.TekStream Solutions [phone]/ Jill [phone] They all offer virtual. All work with trauma Support groups Online support meetings PSI https://www..net/get-he lp/nkm-hdbvvo-ezzsamm-meetings/ Here are the support groups they offer: Support of parents of 1 to 4 years old children POEM ( Outreach and Encouragement for Moms) offers free support for mothers experiencing depression, anxiety, and other mood and anxiety disorders. Masks are recommended but not required. No pre-registration required. Babies in arms welcome. meetings now take place on the and Wednesday of each month Location: Darryl Mcguire [facility] [address] [place] [address] Room 122 (library room) 7-8:00 p.m. When you [facility] parking lot off of [address] the entrance door closest to our meeting room is on the front of the building toward the right. For those who are more comfortable with a virtual platform, PO offers online support group options several days of the week. To register for an online group or to find out more about POEM, website at: https://People and Pagesaohio.org/get-help/[facility] memorial hospitalxkje-ldtisx-kaelip/poem-services/ offer a confidential helpline: private Facebook group is called WALTER Tejada Here are the groups they offer: Traumatic childbirth resources: Http://pattch.org/ https://www.jaxonWorldHeart.Go Try It On/ Name Location (s) Phone # (s) Services Website [facility] Psychotherapy [address] [place], [place] - [phone]; [address] [phone] In-Person GROUPS INDIVIDUAL THERAPY MATERNAL- MENTAL HEALTH MEDICATION MANAGEMENT PLAY AND ART THERAPY TELETHERAPY https://www.Think1stBoxing.com/s ervices/ Bri[place] YULIET? [address] [place], [place] [address] ? [address], [address] [place], [place] [address] ? [address] [address] [place] [id number]? Grief Support Groups Individual Grief Counseling Spiritual Care [facility] ([place], [place]) https://yuliet.[facility].org/grief-services [facility] [address] [place], [place] [address]; ; Email: [email or web address] Women's Mental Health; Couples Counseling; Trauma (EMDR); Stress Management; Mood and Anxiety Related Disorders- and much more https://www.Advanced Field Solutions/ LifeStance Numerous as they have contract providers: access website to find specific providers near you Counseling including CBT and EMDR as well as many more modalities; Medication Management; Telehealth and In-Person https://Skyline Innovations.Go Try It On/ [facility] [address] [place], [place] [address]; [phone] Personal, Family and Group Therapy; Psychological Testing and Diagnosis; Medication Management; Life and Career Coaching; Psychoanalysis; Literacy Testing; Yoga and Meditation https://Webtalk/ Yeapoo [facility] [address] [facility] [address], [place] [address] [address] ; [facility], [address] [place] [address]; Office # for both sites: Individual and Couples Counseling https://www.EyeIC.Go Try It On/ paymentinsurance.html OCD & Anxiety [facility] [address] [facility], [address], [place] [address]; Specialize in Cognitive-Behavioral Therapy (CBT) for the treatment of anxiety disorders across the lifespan. TELEHEALTH ONLY. https://ocdandanxietycenteroSurefire Medicalv Arisaph Pharmaceuticals/faqs [facility] [address] [facility]th [place], [address] [employer] [place] [address] [facility] [place], [address] [place] [address] [place], [address] [place] [address] [facility], [address], 5200677 [place] [address] [facility] [place], [address] [place] [address] [place], [place], 3704[address] Transportation Services To minimize patient barriers, [facility] provides transportation services to patients who qualify. If you are unable to get to your appointment at any of our facilities, please let us know. Need help now? Stop by one of our walk-in clinics to establish behavioral health care. Counseling Indvidual, Group, Couples and Family Counseling and EMDR. Medication Management Case Management benefits applications housing assistance Substance abuse treatment Medication assisted treatment https://www.[facility].or g/mental-health/ [facility] [place] OFFICE AT [facility] [address] [place] [address] [facility] OFFICE [address] [place] [address] [facility] OFFICE [address] [place] [address] [facility] OFFICE (at [facility]) [address] [place] [address] [facility] SYRINGE EXCHANGE PROGRAM & HIV SCREENING [address] [place] [address] [place] EXCHANGE PROGRAM [address] [place] [address] Behavioral Health Urgent Care: [facility] Counseling Indvidual and Group Medication Management Case Management benefits applications housing assistance Substance abuse treatment Medication assisted treatment Employment Services/ Job Training https://theAlo7.org/ Recovery Resources [address] [place], [place] [address]: P: [phone] [address] [facility], [address], [place] [address] P: [phone] Our services include: Addiction Mental Health Treatment Assessment Psychiatry Medical Care Employment Housing Drug and Alcohol Prevention HIV/AIDS Prevention https://www.recres.org/ [facility] [place] [address] [facility] [address] [place] [address] [place] [address] [place], [place] [address]bianca.[address] [place], [place] [address] [address] [place] [address] [place] [address] [facility] [address] [place] [address] [place] [address] [place] [address] TMS Therapy/ Counseling Psychocological Testing for ADHD Medication Management In-Person/ Telemedicine https://www.Yoomba.Go Try It On/precious ents-depression [facility] services [address], [place] [address] Neuropsychological Testing For ADHD https://www.memoryandpsych.com/ [facility] - Main Office [address] [place] [address] [address] Providing mpax-tp-cele and telehealth services. Adult Case Management Community Education and Prevention Employment Outpatient Treatment - Counseling & Psychotherapy Psychiatric Services http://www.[facility].org/ [facility] [place] [address] [place] [address] [facility] [address] [place] [address] Virtual Appointments! Now offering safe and convenient virtual client appointments to anyone in [place]! Individual Therapy Couples/Relationship Therapy Trauma/EMDR Therapy Art Therapy Play Therapy Plastic Jig And Fixture Builder Support: Parenting Skills, Parent Child Interaction Therapy, Parent Interaction Therapy Meditation Dietitian/Walnut Dehydrator Operator Services Group Therapy Yoga https://www.Greenbox Technologies. Go Try It On/ Tri Holliday [phone] Private Practice: Telehealth Only Specializes in EMDR for Trauma None documented in this encounter [facility] 07-26-2024 Note HNO ID: [id number] Author: LORAINE VALERIO APRN.CNP Service: ? Author Type: Nurse Practitioner Type: Progress Notes Filed: 07/26/2024 14:23 Note Text: Boat Buffer Plastic offered: Patient declines. INITIAL OB ASSESSMENT HPI: Melquiades is a 24 year old White here to establish Obstetrical Care. No LMP recorded (lmp unknown). Patient is . from OB Dating Form. was unplanned but accepted Complaints: nausea/vomiting, mild intermittent pelvic cramping OB History T0 L0 SAB0 IAB0 Ectopic0 Multiple0 Live Births0 Previous history: Prior : never History of 4th degree laceration: NA History of shoulder dystocia: n/a History of Hypertensive disorders including pre-eclampsia or gestational hypertension: NA History of gestational diabetes: NA Patient's Risk Screening for delivery: Have you had a prior barfield between 20w and 36w6d? No How many pregnancies have you had before? 0 Did you have a previous baby with a GBS Infection? No Please select all that apply for any prior : N/A MEDICAL/PSYCHOSOCIAL HISTORY: History of hemorrhage or bleeding concerns: No Thyroid Disease: No History of chronic hypertension: No History of pre-existing diabetes: No No results found for: ABORHD BMI 22.00 kg/(m2) Last Pap: unsure exact date but roughly last year History of abnormal pap: No Prior treatment for cervical dysplasia: none. Last HPV: n/a History of STDs: None Partner History of STDs: None Did you have a partner with Herpes? No Tobacco use: No E-Cigarette/Vaping Use: No Caffeine use: Yes, 1 serving per day Drug use: No Alcohol use: No Multivitamin with Folic acid: No Would refuse blood transfusion if medically necessary: No Social Needs: How often does this describe you? I don't have enough money to pay my bills: Sometimes Within the past 12 months, have you worried that your food would run out before you had money to buy more? Often In the past 12 months, has lack of reliable transportation kept you from going to medical appointments or work, or from getting things needed for daily living? Never In the past 12 months, have you had any concerns about having a place to live, or about the condition or quality of your housing? Never Would you like more information on any of the following (please check all that apply)? Centering (group care classes) Social History: Do you have any history of depression, anxiety, PTSD, or other mood problems? Yes Do you have a history of abuse or trauma that may impact your experience? No Are you currently employed? Yes Depression/Anxiety Screening: admits to symptoms of depression. OB Depression and Anxiety Screening- This Encounter (since 07/25/2024) Over the past 2 weeks have you felt down, depressed, or hopeless? Positive - Further Testing Indicated Over the past two weeks, have you felt little interest or pleasure in doing things?? Positive - Further Testing Indicated I have been able to laugh and see the funny side of things. As much as I always could I have looked forward with enjoyment to things. As much as I ever did I have blamed myself unnecessarily when things went wrong. Yes, some of the time I have been anxious or worried for no good reason. Yes, sometimes I have felt scared or panicky for no good reason. Yes, sometimes Things have been getting on top of me. Yes, sometimes I haven't been coping as well as usual I have been so unhappy that I have had difficulty sleeping. Not very often I have felt sad or miserable. Not very often I have been so unhappy that I have been crying. Only occasionally The thought of harming myself has occurred to me. Never [place] Depression Scale Total 11 Feeling nervous, anxious or on edge 1-Several days Not being able to stop or control worrying 1-Several days Anxiety Pre-Screening Total (If >/= 3 additional questions will be reviewed) 2 Genetic Screening: Partner present: No Patient verbalized knowledge of partner family health history: Yes Do you or your partner have any personal or family history of defects not previously discussed: No Do you have history of a complicated by anomaly, genetic condition, or demise: No Preeclampsia Risk Screening: Screening for prevention of preeclampsia: High risk factors: None Moderate risk ractors: Nulliparity OB Risk Screening: Completed, no positive findings documented. Marital Status:Committed relationship Partner: Name: Norma Age: 32 Occupation: [employer] House[employer] Gender: Male History reviewed. No pertinent past medical history. History reviewed. No pertinent surgical history. Current Outpatient Medications Medication Sig Dispense Refill PNV no.95/ferrous fum/folic ac ( ORAL) Take by mouth. [id number] ACID ORAL Take by mouth. (more content not included)... [facility] 07-26-2024 History of Present illness Narrative Images from the original note were not included. Boat Buffer Plastic offered: Patient declines. INITIAL OB ASSESSMENT HPI: Melquiades is a 24 year old White here to establish Obstetrical Care. No LMP recorded (lmp unknown). Patient is . from OB Dating Form. was unplanned but accepted Complaints: nausea/vomiting, mild intermittent pelvic cramping OB History T0 L0 SAB0 IAB0 Ectopic0 Multiple0 Live Births0 Previous history: Prior : never History of 4th degree laceration: NA History of shoulder dystocia: n/a History of Hypertensive disorders including pre-eclampsia or gestational hypertension: NA History of gestational diabetes: NA Patient's Risk Screening for delivery: Have you had a prior barfield between 20w and 36w6d? No How many pregnancies have you had before? 0 Did you have a previous baby with a GBS Infection? No Please select all that apply for any prior : N/A MEDICAL/PSYCHOSOCIAL HISTORY: History of hemorrhage or bleeding concerns: No Thyroid Disease: No History of chronic hypertension: No History of pre-existing diabetes: No No results found for: ABORHD BMI 22.00 kg/(m^2) Last Pap: unsure exact date but roughly last year History of abnormal pap: No Prior treatment for cervical dysplasia: none. Last HPV: n/a History of STDs: None Partner History of STDs: None Did you have a partner with Herpes? No Tobacco use: No E-Cigarette/Vaping Use: No Caffeine use: Yes, 1 serving per day Drug use: No Alcohol use: No Multivitamin with Folic acid: No Would refuse blood transfusion if medically necessary: No Social Needs: How often does this describe you? I don't have enough money to pay my bills: Sometimes Within the past 12 months, have you worried that your food would run out before you had money to buy more? Often In the past 12 months, has lack of reliable transportation kept you from going to medical appointments or work, or from getting things needed for daily living? Never In the past 12 months, have you had any concerns about having a place to live, or about the condition or quality of your housing? Never Would you like more information on any of the following (please check all that apply)? Centering (group care classes) Social History: Do you have any history of depression, anxiety, PTSD, or other mood problems? Yes Do you have a history of abuse or trauma that may impact your experience? No Are you currently employed? Yes Depression/Anxiety Screening: admits to symptoms of depression. OB Depression and Anxiety Screening- This Encounter (since 07/25/2024) Over the past 2 weeks have you felt down, depressed, or hopeless? Positive - Further Testing Indicated Over the past two weeks, have you felt little interest or pleasure in doing things? Positive - Further Testing Indicated I have been able to laugh and see the funny side of things. As much as I always could I have looked forward with enjoyment to things. As much as I ever did I have blamed myself unnecessarily when things went wrong. Yes, some of the time I have been anxious or worried for no good reason. Yes, sometimes I have felt scared or panicky for no good reason. Yes, sometimes Things have been getting on top of me. Yes, sometimes I haven't been coping as well as usual I have been so unhappy that I have had difficulty sleeping. Not very often I have felt sad or miserable. Not very often I have been so unhappy that I have been crying. Only occasionally The thought of harming myself has occurred to me. Never [place] Depression Scale Total 11 Feeling nervous, anxious or on edge 1-Several days Not being able to stop or control worrying 1-Several days Anxiety Pre-Screening Total (If >/= 3 additional questions will be reviewed) 2 Genetic Screening: Partner present: No Patient verbalized knowledge of partner family health history: Yes Do you or your partner have any personal or family history of defects not previously discussed: No Do you have history of a complicated by anomaly, genetic condition, or demise: No Preeclampsia Risk Screening: Screening for prevention of preeclampsia: High risk factors: None Moderate risk ractors: Nulliparity OB Risk Screening: Completed, no positive findings documented. Marital Status:Committed relationship Partner: Name: Norma Age: 32 Occupation: M[employer] House[employer] Gender: Male History reviewed. No pertinent past medical history. History reviewed. No pertinent surgical history. Current Outpatient Medications Medication Sig Dispense Refill PNV no.95/ferrous fum/folic ac ( ORAL) Take by mouth. [id number] ACID ORAL Take by mouth. No current facility-administered medications for this visit. Allergies As of Date: 07/26/2024 (No Known Allergies) Fully Assessed 07/26/2024 Does patient have penicillin allergy: No REVIEW OF SYSTEMS: GENERAL: Negative for: Fever or Chills HEENT: Negative for: Headache, Impaired Vision, Ringing in Ears, Nosebleeds NECK: Negative for: Swelling, Pain, Stiffness RESPIRATORY: Negative for: Cough, Shortness of breath, Wheezing GASTROINTESTINAL: Negative for: Constipation, Diarrhea, Blood in stool, + nausea, heartburn MUSCULOSKELETAL: Negative for: Muscle or joint pain, stiffness, Joint swelling NEUROLOGIC/PSYCHIATRIC: Negative for: Weakness, Paralysis, Numbness, Tingling, Tremor, Memory loss + depression/anxiety SKIN: Negative for: Rash, Itching GENITOURINARY: Negative for: vaginal itching, vaginal discharge, hematuria or dysuria SENSITIVE EXAM: Sensitive exam not performed. PHYSICAL EXAM: BP 110/60 Ht 5' 4.213 (1.63m) Wt 129 lb (58.5kg) BMI 22.00 kg/(m^2). GENERAL: pleasant in no apparent distress DERMATOLOGY: Normal, without lesions, non-icteric, and non-hirsute NECK: Supple, full range of motion, and no adenopathy CHEST: Normal inspiratory effort BREAST: deferred ABDOMEN: gravid, nontender NEURO: alert and oriented x3,exam grossly non-focal PELVIS: deferred Limited OB ultrasound exam: not performed SBIRT Melquiades Marcia Mustafa was given the 's screening tool. Melquiades answered as follows: OB Opioid Screening - Last Recorded (since 10/30/2023) Did any of your parents have a problem with alcohol or other drug use? Yes mom Does your partner have a problem with alcohol or other drug use? No In the past, have you had difficulties in your life because of alcohol or other drugs, including prescription medications? No In the past month have you drunk any alcohol or used other drugs? No Are you taking medication for pain during the either prescribed or not? No Based on the screen and further questions, she is considered at Low risk due to:No past or current use. Positive reinforcement of current behavior. Plan to rescreen early third trimester. Loraine Valerio APRN.MACHINE SIGN WRITER ASSESSMENT: 24 year old at Unknown wks gestational age PLAN: 1) Patient oriented to practice. Patient given new OB orientation folder. Discussed nutrition, folic acid supplementation, dietary guidelines, exercise, smoking, alcohol, caffeine, and drug use. Discussed gestational weight gain guidelines. Discussed routine OB labs including STD/HIV. Discussed how to access Your guide to a health and the Outreach Associate. Discussed hemoglobin electrophoresis. Patient: Declines Reviewed midwifery and dental office assistant services that are available. 2) Screening: Hemoglobin A1C: ordered Baby Aspirin: The patient has been counseled about the potential benefits of low dose aspirin in and our recommendation that this be offered to all patients, regardless of whether they meet the high risk criteria specified above. Aneuploidy Screening: Discussed aneuploidy screening, nuchal translucency/first trimester early anatomy ultrasound and NIPT. The risks/benefits and limitations of NIPT/aneuploidy screening were reviewed including the potential for false negative and false positive results. The availability of genetic counseling was reviewed. Information on aneuploidy screening was provided. The patient declines screening Myriad Carrier Screening: Discussed myriad carrier screening. We discussed the availability of professional-society guided carrier screening and reviewed the conditions screened and limitations of screening. The availability of genetic counseling was reviewed. Information on carrier screening was provided. The patient Accepts 3) Patient offered option of Virtual Visits. Patient unsure. May consider in future. ACTIVE PROBLEM LIST Encounter for Supervision of Normal First in Second Trimester - 07/26/2024 Comment: Care Checklist Vaccines: [] Flu vaccine [] declined [] RSV vaccine 32 0/7 - 36 / (Feb - Jul) [] declined [] COVID vaccine [] declined [] TDaP - [] declined First trimester: [] Dating US [] 1st tri labs [] Pap smear [x] Carrier screening [] declined [] NIPT screening [] declined [] First trimester anatomy scan [] declined [] universal ASA ordered (start 12w-16w) [] declined [] M Power Consult [] not indicated [] declined Second trimester: [x] Anatomy scan [] Mode of Delivery - [] Feeding - [] Pump ordered [] Diabetes screen [] CBC, RPR [] Behavioral Health Screening Third trimester (28-30 weeks): [] Consent [] Contraception [] Tag Marker [] TeamBirth handout Third trimester (36-40 weeks): [] GBS [] Presentation - [] Scheduled [] yes - Hibiclens, pre-op instructions, CBC, T&S ordered [] no [] H&P [] Preferences worksheet [] Scanned in EMR With Care Elsewhere in Second Trimester - 07/26/2024 Comment: July 26, 2024 Transferring from [place]. To sign records release. Loraine Valerio APRN.MACHINE SIGN WRITER Nausea and Vomiting During - 07/26/2024 Comment: July 26, 2024 Controlled with Reglan, prescribed by previous OB. Loraine Valerio APRN.CNP Heartburn During in Second Trimester - 07/26/2024 Comment: July 26, 2024 Controlled with Pepcid. Loraine Valerio APRN.CNP Depression Affecting - 07/26/2024 Comment: July 26, 2024 EPDS 11. Would like to get back into counseling. Denies thoughts of self harm. Not interested in medication at this time. Mental health resources provided. Loraine Valerio APRN.CNP Follow up in 2 weeks or sooner prn. Sign records release. Loraine Valerio APRN.CNP documented in this encounter [facility] 07-19-2024 Telephone encounter Note Spoke to patient. She already has an appt. Closing encounter. [facility] 07-19-2024 Miscellaneous Notes Spoke to patient. She already has an appt. Closing encounter. Additional attempt made to speak to patient. No answer, LMTCB if patient still desires an appt. Call placed to patient to triage for new OB appt. No answer, LMTCB. ----- Message from Tesha Emmanuel sent at 07/14/2024 4:32 PM EST ----- Regarding: WHQ/RAYMOND/ Patient has been identified by name and Date of : Yes Patient: Melquiades Mustafa Date of : 2000 Provider for this encounter : No primary care provider on file. Reason for call: Triage Was an appointment scheduled: No Reason for requesting visit (RFV/signs and symptoms/diagnosis) : Person calling: self Return call to: self Call patient at: at home [phone] (home) Payor: [place] [employer] / Plan: [place] GENERIC / Product Type: PPO / Tesha Roach documented in this encounter [facility] 07-19-2024 Telephone encounter Note Additional attempt made to speak to patient. No answer, LMTCB if patient still desires an appt. [facility] 07-17-2024 Telephone encounter Note Call placed to patient to triage for new OB appt. No answer, LMTCB. [facility] 07-17-2024 Telephone encounter Note ----- Message from Tesha Emmanuel sent at 07/14/2024 4:32 PM EST ----- Regarding: WHQ/RAYMOND/ Patient has been identified by name and Date of : Yes Patient: Melquiades Mustafa Date of : 2000 Provider for this encounter : No primary care provider on file. Reason for call: Triage Was an appointment scheduled: No Reason for requesting visit (RFV/signs and symptoms/diagnosis) : Person calling: self Return call to: self Call patient at: at home [phone] (home) Payor: [employer] PLAN / Plan: [place] [facility] CHOICE PLAN GENERIC / Product Type: PPO / Tesha Rocah [facility] 05-26-2024 Evaluation + Plan note Diagnostic Tests PendingPrenatal Panel (AO) 05/26/24Varicella Zoster Antibody 05/26/24 [facility] Evaluation + Plan note Future Appointments Appointment Date:04/21/2022 08:30:00 AM Scheduled Provider:SHARMILA CHAUDHARI DO Location:[facility] Appointment Type: Wellness Annual Diagnostic Tests PendingChlamydia trachomatis PCR 03/21/22N. gonorrhoeae PCR 03/21/22 Future Scheduled TestsPathology Culinary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
[2024-12-03 23:14] VITALS: PULSE 81; O2SAT 98
[2024-12-03 23:19] VITALS: BP 115/76; PULSE 65; RESP 18; TEMP 36.5
[2024-12-03 23:33] VITALS: BMI 24.7
[2024-12-04] VITALS (35 sets, daily range): BP systolic 100–117; BP diastolic 51–77; PULSE 60–113; RESP 16–22; TEMP 36.2–36.8; O2SAT 97–99
[2024-12-04 00:08] LABS: ROM Internal Control Test YES-OK TO RESULT pt. (Internal QC); ROM Patient Test Negative (Negative); Record Kit Lot#, ROM+ K3358
--- OUTSIDE RECORDS SUMMARY | 2024-12-04 02:54 | XMS RPT_ITS | CCD ---
Author Organization [facility] CliniSywy Care Team Providers Care Cop Name Role Phone Ignacia Maza Unavailable Unavailable Sharmila Rodriguez Unavailable Unavailable Moeller, Kharis Unavailable Unavailable HYACINTH-OLES, FC-PURVI A Unavailable Unavaila ble FABIANO FC-PURVI A Unavailable Unavaila ble CHRISTINA MCCALLUM M.D. Unavailable UnavailSHARMILA Solomon DO Primary Care Physician [phone] SHARMILA CHAUDHARI DO Primary Care Physician SHARMILA [...] (7 sources) Pollen Allergy to substance Unknown [facility] Welch (7 sources) Animal Dander Allergy to substance Unknown [facility] Castine (7 sources) Grass Allergy to substance Unknown [facility] Medications Current Medications Medication Drug Class(es) Dates Sig (Normalized) Sig (Original) Albuterol (11 sources) beta2-Adrenergic Agonist Start: 04-21-2023 ALBUTEROL INHALATION Inhale as instructed. 04/21/2023 Active Albuterol (Eqv-ProAir HFA) 90 mcg/inh inhalation aerosol (4 sources) Start: 04-21-2023 take 1 dose by inhalation every six hours Albuterol (Eqv-ProAir HFA) 90 mcg/inh inhalation aerosol Dose = 2 puff(s), Inhalation, q6hr, # 1 EA, 5 Refill(s), [facility]acy: [id number], Environmental allergy, 160.8, cm, 04/21/23 15:35:00 EDT, Height, kg, 04/21/23 15:35:00 EDT, Dosing Weight Start Date: 04/21/23 Status: Ordered cetirizine hydrochloride 10 mg oral tablet (4 sources) Histamine-1 Receptor Antagonist Start: 10-20-2023 cetirizine 10 mg oral tablet Dose : 10 mg = 1 tab(s), Oral, qDay, # 30 tab(s), 5 Refill(s), [facility]acy: [facility] #[id number], Environmental allergy, 162, cm, 10/20/23 13:01:00 EDT, Height, kg, 10/20/23 13:01:00 EDT, Dosing Weight Start Date: 10/20/23 Status: Ordered Start: 04-21-2023 cetirizine 10 mg oral tablet Dose : 10 mg = 1 tab(s), Oral, qDay, # 30 tab(s), 5 Refill(s), [facility]acy: [facility] #[id number], Environmental allergy, 160.8, cm, 04/21/23 15:35:00 EDT, Height, kg, 04/21/23 15:35:00 EDT, Dosing Weight Start Date: 04/21/23 Status: Ordered [id number] ACID ORAL (5 sources) COLLAGEN-BIOTIN- ASCORBIC ACID [...] anxiety, # 90 tab(s), 2 Refill(s), Pharmacy: [facility], Anxiety Recurrent major depression, 163.1, cm, [...] Daily, # 90 cap(s), 1 Refill(s), [facility]: [facility] #[id number], Cystic acne, 162.6, cm, 08/25/21 15:23:00 EST, Height, 54.5 Start Date: 02/19/22 Status: Ordered omeprazole 20 mg delayed release oral capsule (2 sources) Proton Pump Inhibitor Sta rt: 4 omeprazole 20 mg oral delayed release capsule Dose : 20 mg = 1 cap(s), Oral, qDay, # 30 cap(s), 5 Refill(s), Pharmacy: [facility] #[id number], GERD without esophagitis, 162, cm, 12/31/23 13:27:00 [...] qWeek, # 13 cap(s), 3 Refill(s), Pharmacy: [facility] #[id number], Vitamin D deficiency, 162, cm, 12/31/23 13:27:00 EDT, Height, kg, 12/31/23 13:27:00 EDT, Dosing Weight Start Date: 12/31/23 Status: Ordered Start: 04-22-2023 Vitamin D3 125 0 mcg (50,000 intl units) oral capsule Dose : 1,250 mcg = 1 cap(s), Oral, qWeek, # 13 cap(s), 3 Refill(s), Pharmacy: [facility] #[id number], Vitamin D deficiency, 160.8, cm, 04/21/23 15:35:00 [...] day, # 60 gram(s), 1 Refill(s), Pharmacy: [facility] #[id number], Powder, 162, cm, 10/20/23 13:01:00 EDT, Height, [...] (1 source) Mood disorders; Translations: [Depression affecting ([facility])] Onset: 07-26-2024 Mycoses (3 sources) Candidiasis 10-20-2023 [...] risk due to social problems, third trimester ([facility])] Onset: 10-25-2024 Episodic Other complications of (1 source) Uterine size-date discrepancy, third trimester; Translations: [Uterine size-date discrepancy, third trimester ([facility])] Onset: 11-15-2024 Episodic Other injuries and conditions [...] 5 Glucose Ql (U) Negative Neg mg/dL [facility] Interpretation and review of laboratory results Normal [facility] Protein.monoclonal (U) [Mass/Vol] Negative Neg mg/dL [facility] URINE OB DIP B/Oon 5 Glucose Ql (U) Negative Neg mg/dL [facility] Interpretation and review of laboratory results Normal [facility] Protein.monoclonal (U) [Mass/Vol] Negative Neg mg/dL [facility] URINE OB DIP B/Oon 5 Glucose Ql (U) Negative Neg mg/dL [facility] Protein.monoclonal (U) [Mass/Vol] Negative Neg mg/dL [facility] ROUTINE, GROUP B ST REPTOCOCCUS BY PCRon 11-08-2024 ROUTINE, GROUP B STREPTOCOCCUS BY PCR Detected Abnormal [facility] Comment on above: Performed By: #### G BPCR ####[facility] LABCLIA [id number] [place] [address] [place] CNPNon 10-26-2024 [facility] Telephone (NAVWST) RAMSEYMELQUIADES A ([id number]) 1 F Date Time Provider Department 10/26/24 [...] back to discuss care support in the [facility]. Tere Olivares MSW 10/27/2024 11:52 AM Signed Miguel received message back from patient requesting call back. Sw called patient back and left message for patient to return Sw call to discuss below. Tere Olivares MSW 11/01/2024 11:39 AM Signed Sw and patient discussed starting with [facility]. Sw thought it would be helpful for patient to reach out to [facility] to gather more information about adoption and learn more about the agencies that are out there to assist with adoption. Patient took down [facility] ph. [phone] address:[address] [place] [address], [address]. Patient notes that she will give them [...] Status:Closed by TERE OLIVARES on 11/01/24 Normal [facility] Examination level ultrasound on 10-25-2024 [facility] Radiology Study observation (narrative) [facility] URINE OB DIP B/Oon Glucose Ql (U) Negative Neg mg/dL [facility] Protein.monoclonal (U) [Mass/Vol] Negative Neg mg/dL [facility] CNPNon 10-09-2024 CNPN Telephone (PSYRMN) MELQUIADES MUSTAFA ([id number]) 1 F Date Time Provider Department 10/09/24 HATTIE PLUNKETT PSYRMN During your visit today, we recorded the following information about you: Hattie Plunkett LISW 10/09/2024 12:17 PM Signed Phone call to patient regarding [facility] referral. Patient did not answer, unable to leave message. Outreach attempt #3. Will send MC message. WB SW can be reached at: [place]: [phone] [place]:[phone] Allergies As of Date: 10/09/2024 (No Known Allergies) Date Reviewed: 09/30/2024 Reviewed by: Saloni Zuniga MD - Fully Assessed Reason for Visit: Lvn - Other [1879] Cmt: [facility] Consult Follow Up Prescriptions as of 10/09/2024 - ALBUTEROL INHALATION Inhale as instructed. - metoclopramide HCl (REGLAN) 10 mg tablet TAKE 1 TABLET BY MOUTH EVERY 6 HOURS (ONE-HALF HOUR BEFORE MEALS AND AT BEDTIME) NEEDED FOR NAUSEA. - famotidine (PEPCID ORAL) Take by mouth. - PNV no.95/ferrous fum/folic ac ( ORAL) Take by mouth. - [id number] ACID ORAL Take by mouth. Problem List As Of Date 10/09/2024 Noted Resolved with care elsewhere in secon*07/26/2024 Encounter for supervision of normal first pregn*07/26/2024 Nausea and vomiting during [O21.9] 07/26/2024 Depression affecting [O99.340, F32.A] 07/26/2024 Heartburn during in second trimester *07/26/2024 Encounter Status:Closed by H[facility]IE [facility]ETT [facility]09[facility] Telephone (PSYRMN) MELQUIADES MUSTAFA ([id number]) 1 F Date Time Provider Department 09/27/24 HATTIE PLUNKETT PSYRMN During your visit today, we recorded the following information about you: Hattie Plunkett LISW 09/27/2024 1:42 PM Signed Phone call to patient regarding [facility] referral. Patient did not answer, left message. [facility] SW can be reached at: [place]: [phone] [place]:[phone] Allergies As of Date: 09/27/2024 (No Known Allergies) Date Reviewed: 09/15/2024 Reviewed by: Mickey Figueroa MA - Fully Assessed Reason for Visit: Lvn - Other [2232] Cmt: [facility] Consult Follow Up Prescriptions as of 09/27/2024 - ALBUTEROL INHALATION Inhale as instructed. - metoclopramide HCl (REGLAN) 10 mg tablet TAKE 1 TABLET BY MOUTH EVERY 6 HOURS (ONE-HALF HOUR BEFORE MEALS AND AT BEDTIME) NEEDED FOR NAUSEA. - famotidine (PEPCID ORAL) Take by mouth. - PNV no.95/ferrous fum/folic ac ( ORAL) Take by mouth. - [id number] ACID ORAL Take by mouth. Problem List As Of Date 09/27/2024 Noted Resolved with care elsewhere in secon*07/26/2024 Encounter for supervision of normal first pregn*07/26/2024 Nausea and vomiting during [O21.9] 07/26/2024 Depression affecting [O99.340, F32.A] 07/26/2024 Heartburn during in second trimester *07/26/2024 Encounter Status:Closed by HATTIE PLUNKETT on 09/27/24 Normal [facility] CARRIER SCREEN, STANDARDon 0 09-15-2024 CARRIER SCREEN RESULTS View results in Scanned Documents link when available. Normal [facility] Comment on above: Order Comment: Speci men Type: BLOOD SPECIMENOrdering Facility: [facility] Address: [address] [place] [address] Performed By: #### C RRSCN ####MYRIADCLIA [id number] [place] [address] CBC W Auto Differential pane l (Bld)on 09-15-2024 Basophils (Bld) [#/Vol] 0.03 10*3/uL Normal <0.11 [facility] Comment on above: Order Comment: Speci men Type: BLOOD SPECIMENOrdering Facility: [facility] Address: [address] [place] [address] Performed By: #### 5 7021-8 ####[facility] PULASKIMarcia [id number] [place] [address] [place] Basophils/100 WBC (Bld) 0.3 % Normal [facility] Comment on above: Order Comment: Speci men Type: BLOOD SPECIMENOrdering Facility: [facility] Address: [address] [place] [address] Performed By: #### 5 7021-8 ####[facility] RAINADEBORALIA [id number] [place] [address] [place] Differential cell count method Nom (Bld) Auto Normal [facility] Comment on above: Order Comment: Speci men Type: BLOOD SPECIMENOrdering Facility: [facility] Address: [address] [place] [address] Performed By: #### 5 7021-8 ####[facility]ITALNCLIA [id number] [place] [address] [place] Eosinophils (Bld) [#/Vol] 0.17 10*3/uL Normal <0.46 [facility] Comment on above: Order Comment: Speci men Type: BLOOD SPECIMENOrdering Facility: [facility] Address: [address] [place] [address] Performed By: #### 5 7021-8 ####[facility] AKRONLIA [id number] [place] [address] [place] Eosinophils/100 WBC (Bld) 1.7 % Normal [facility] Comment on above: Order Comment: Speci men Type: BLOOD SPECIMENOrdering Facility: [facility] Address: [address] [place] [address] Performed By: #### 5 7021-8 ####[facility] AKRONLIA [id number] [place] [address] [place] Erythrocyte distribution width (RBC) [Ratio] 12.1 % Normal 11.5-15.0 [facility] Comment on above: Order Comment: Speci men Type: BLOOD SPECIMENOrdering Facility: [facility] Address: [address] [place] [address] Performed By: #### 5 7021-8 ####[facility]OS[facility]ITALNCLIA [id number] [place] [address] [place] Hematocrit (Bld) [Volume fraction] 34.4 % Low 36.0-46.0 [facility] Comment on above: Order Comment: Speci men Type: BLOOD SPECIMENOrdering Facility: [facility] Address: [address] [place] [address] Performed By: #### 5 7021-8 ####[facility] AKRONTRENA [id number] [place] [address] [place] Hemoglobin (Bld) [Mass/Vol] 11.8 g/dL Normal 11.5-15.5 [facility] Comment on above: Order Comment: Speci men Type: BLOOD SPECIMENOrdering Facility: [facility] Address: [address] [place] [address] Performed By: #### 5 7021-8 ####[facility] AKRONLIMarcia [id number] [place] [address] [place] Immature granulocytes (Bld) [#/Vol] 0.04 10*3/uL Normal <0.10 [facility] Comment on above: Order Comment: Speci men Type: BLOOD SPECIMENOrdering Facility: [facility] Address: [address] [place] [address] Performed By: #### 5 7021-8 ####[facility]ITALNCLIA [id number] [place] [address] [place] Immature granulocytes/100 WBC (Bld) 0.4 % Normal [facility] Comment on above: Order Comment: Speci men Type: BLOOD SPECIMENOrdering Facility: [facility] Address: [address] [place] [address] Performed By: #### 5 7021-8 ####[facility]ITALNCLIA [id number] [place] [address] [place] Lymphocytes (Bld) [#/Vol] 1.83 10*3/uL Normal 1.00-4.00 [facility] Comment on above: Order Comment: Speci men Type: BLOOD SPECIMENOrdering Facility: [facility] Address: [address] [place] [address] Performed By: #### 5 7021-8 ####[facility] [id number] [address] STATES [facility] Lymphocytes/100 WBC (Bld) 18.2 % Normal [facility] Comment on above: Order Comment: Speci men Type: BLOOD SPECIMENOrdering Facility: [facility] Address: [address] [place] [address] Performed By: #### 5 7021-8 ####[facility] [id number] [place] [address] [place] MCH (RBC) [Entitic mass] 33.1 pg Normal 26.0-34.0 [facility] Comment on above: Order Comment: Speci men Type: BLOOD SPECIMENOrdering Facility: [facility] Address: [address] [place] [address] Performed By: #### 5 7021-8 ####[facility] [id number] [address] [place] MCHC (RBC) [Mass/Vol] 34.3 g/dL Normal 30.5-36.0 [facility] Comment on above: Order Comment: Speci men Type: BLOOD SPECIMENOrdering Facility: [facility] Address: [address] [place] [address] Performed By: #### 5 7021-8 ####[facility] [id number] [address] [place] MCV (RBC) [Entitic vol] 96.4 fL Normal 80.0-100.0 [facility] Comment on above: Order Comment: Speci men Type: BLOOD SPECIMENOrdering Facility: [facility] Address: [address] [place] [address] Performed By: #### 5 7021-8 ####[facility] MILLTOWNCLIA [id number] [place] [address] [place] Monocytes (Bld) [#/Vol] 0.64 10*3/uL Normal <0.87 [facility] Comment on above: Order Comment: Speci men Type: BLOOD SPECIMENOrdering Facility: [facility] Address: [address] [place] [address] Performed By: #### 5 7021-8 ####[facility] MILLTOWNCLIA [id number] [place] [address] [place] Monocytes/100 WBC (Bld) 6.4 % Normal [facility] Comment on above: Order Comment: Speci men Type: BLOOD SPECIMENOrdering Facility: [facility] Address: [address] [place] [address] Performed By: #### 5 7021-8 ####[facility]TON[facility] BEACHWNCLIA [id number] [place] [address] [place] Neutrophils (Bld) [#/Vol] 7.36 10*3/uL Normal 1.45-7.50 [facility] Comment on above: Order Comment: Speci men Type: BLOOD SPECIMENOrdering Facility: [facility] Address: [address] [place] [address] Performed By: #### 5 7021-8 ####[facility] MILLTOWNCLIA [id number] [place] [address] [place] Neutrophils/100 WBC (Bld) 73.0 % Normal [facility] Comment on above: Order Comment: Speci men Type: BLOOD SPECIMENOrdering Facility: [facility] Address: [address] [place] [address] Performed By: #### 5 7021-8 ####[facility] MILLTOWNCLIA [id number] [place] [address] [place] Nucleated RBC (Bld) [#/Vol] 10*3/uL Normal <0.01 [facility] Comment on above: Order Comment: Speci men Type: BLOOD SPECIMENOrdering Facility: [facility] Address: [address] [place] [address] Performed By: #### 5 7021-8 ####[facility] HOSPITALALEX [id number] [place] [address] [place] Nucleated RBC/100 WBC (Bld) [Ratio] 0.0 /100 WBC Normal [facility] Comment on above: Order Comment: Speci men Type: BLOOD SPECIMENOrdering Facility: [facility] Address: [address] [place] [address] Performed By: #### 5 7021-8 ####[facility] HOSPITALALEX [id number] [place] [address] [place] Platelet mean volume (Bld) [Entitic vol] 10.1 fL Normal 9.0-12.7 [facility] Comment on above: Order Comment: Speci men Type: BLOOD SPECIMENOrdering Facility: [facility] Address: [address] [place] [address] Performed By: #### 5 7021-8 ####[facility] HOSPITALALEX [id number] [place] [address] [place] Platelets (Bld) [#/Vol] 254 10*3/uL Normal 150-400 [facility] Comment on above: Order Comment: Speci men Type: BLOOD SPECIMENOrdering Facility: [facility] Address: [address] [place] [address] Performed By: #### 5 7021-8 ####[facility]YS[facility] HOSPITALORVILLELIA [id number] [place] [address] [place] RBC (Bld) [#/Vol] 3.57 10*6/uL Low 3.90-5.20 [facility] Comment on above: Order Comment: Speci men Type: BLOOD SPECIMENOrdering Facility: [facility] Address: [address] [place] [address] Performed By: #### 5 7021-8 ####[facility] HOSPITALNCLI [id number] [place] [address] [facility] WBC (Bld) [#/Vol] 10.07 10*3/uL Normal 3.70-11.00 [facility] Comment on above: Order Comment: Speci men Type: BLOOD SPECIMENOrdering Facility: [facility] Address: [address] [place] [address] Performed By: #### 5 7021-8 ####[facility] [id number] [address] [facility] CNPLakesha 09-15-2024 CNPN Telephone (PSYRMN) MELQUIADES MUSTAFA ([id number]) 1 F Date Time Provider Department 09/15/24 ONEYDA BARAHONA PSYRMN During your visit today, we recorded the following information about you: Oneyda Barahona LISW 09/15/2024 4:21 PM Signed Phone call to patient regarding [facility] referral. Patient did not answer, left message. [facility] SW can be reached at: [place]: [phone] [place]:[phone] Allergies As of Date: 09/15/2024 (No Known Allergies) Date Reviewed: 09/15/2024 Reviewed by: Mickey Figueroa MA - Fully Assessed Reason for Visit: Lvn - Other [9388] Cmt: [facility] referral follow up Prescriptions as of 09/15/2024 - ALBUTEROL INHALATION Inhale as instructed. - metoclopramide HCl (REGLAN) 10 mg tablet TAKE 1 TABLET BY MOUTH EVERY 6 HOURS (ONE-HALF HOUR BEFORE MEALS AND AT BEDTIME) NEEDED FOR NAUSEA. - famotidine (PEPCID ORAL) Take by mouth. - PNV no.95/ferrous fum/folic ac ( ORAL) Take by mouth. - [id number]-[id number] ACID ORAL Take by mouth. Problem List As Of Date 09/15/2024 Noted Resolved with care elsewhere in secon*07/26/2024 Encounter for supervision of normal first pregn*07/26/2024 Nausea and vomiting during [O21.9] 07/26/2024 Depression affecting [O99.340, F32.A] 07/26/2024 Heartburn during in second trimester *07/26/2024 Encounter Status:Closed by ONEYDA BARAHONA on 09/15/24 Normal [facility] GESTATIONAL GLUCOSE SCREEN, 1-HOUR, 50 GRAM, NON-FASTINGon 09-15-2024 Glucose [Mass/Vol] 133 mg/dL Normal 74-134 [facility] Comment on above: Order Comment: Gaby perkins Type: BLOOD SPECIMEN [facility] Address: [address] [place], [place] [id number] Result Comment: [facility] Congress of Obstetricians and Gynecologists (Nasir/Roni) guidelines state a gestational diabetes mellitus positive screen is made, in women not previously diagnosed with overt diabetes, when the 1 hr plasma glucose level is equal to or above 140 mg/dL. The [facility] [employer] [facility] [place] recommends a 135 mg/dL cutoff. Performed By: #### G LTGST #### [facility] CLIA [id number] [address] [place] [address] [place] HCV Ab Ser Qlon 09-15-2024 HCV Ab Ql (S) Negative Normal Negative [facility] Comment on above: Order Comment: Gaby perkins Type: BLOOD SPECIMENOrdering Facility: [facility] Address: [address] [place] [id number] Result Comment: The result suggests no evidence of infection with Hepatitis C virus. Should recent infection be suspected, repeat testing may be considered 4-6 weeks after this draw. Performed By: #### 1 6128-1 ####[facility] LABCLIA [id number] [place] [address] [place] HbA1c (Bld)on 09-15-2024 Average glucose Estimated from glycated hemoglobin (Bld) [Mass/Vol] 82 mg/dL Normal [facility] Comment on above: Order Comment: Speci men Type: BLOOD SPECIMENOrdering Facility: [facility] Address: [address] [place] [address] Result Comment: eAG: (Estimated average glucose) is a calculated value from HgbA1c and is sales representative consultant of the average blood glucose level in the last 2-3 month period. Performed By: #### 5 5454-3 ####[facility] LABIA [id number] [address] [place] HbA1c (Bld) [Mass fraction] 4.5 % Normal 4.3-5.6 [facility] Comment on above: Order Comment: Speci maddie Type: BLOOD SPECIMENOrdering Facility: [facility] Address: [address] [place] [address] Result Comment: Amer [place] Diabetes Association guidelines indicate that patients with HgbA1c in the range 5.7-6.4% are at increased risk for development of diabetes, and intervention by lifestyle modification may be beneficial. HgbA1c greater or equal to 6.5% is considered diagnostic of diabetes. Performed By: #### 5 5454-3 ####[facility] LABIA [id number] [place] [id number] [place] Reagin and Treponema pallidu m IgG and IgM [Interp]on 09-15-2024 T. pallidum IgG+IgM IA Ql (S) Non-Reactive Normal Nonreactive [facility] Comment on above: Order Comment: Trangi men Type: BLOOD SPECIMENOrdering Facility: [facility] Address: [address] [place] [address] Performed By: #### 7 3752-8 ####[facility] LABCLIA [id number] [place] [id number] [place] Reagin+T pallidum IgG+IgM Se rPl-Impon 09-15-2024 Reagin and Treponema pallidum IgG and IgM [Interp] Cannot exclude recent Treponemal infection if specimen collected within 7-10 days after appearance of suspect lesions or 2-3 weeks after an exposure. Clinical correlation is required. Normal [facility] Comment on above: Order Comment: Speci men Type: BLOOD SPECIMENOrdering Facility: [facility] HOSPITAL Address: [address] [place] [address] Performed By: #### 7 3752-8 ####[facility] LABCLIA [id number] [place] [id number] [place] [facility] Examination level ultrasound on 08-14-2024 Indication [...] 13 oz EFW by: Hadlock (HC-AC-FL) Extended Nurse Receptionist 3.4 mm CM 5.4 mm 29% Nicolaides [...] normal LVOT view: normal 3-vessel view: normal 4-fkovny-lncaflz view: normal Heart / Thorax Situs: situs [...] Read By: Preeti Lee M.D. MATERNAL MEDICINE [facility] Radiology Study observation (narrative) [facility] Rehan 07-17-2024 [facility] Telephone ([id number]) MELQUIADES MUSTAFA ([id number]) 1 F Date Time Provider Department 07/17/24 SALONI BRUNO [id number] During your visit today, we recorded the [...] to: self Call patient at: at home [phone] (home) Payor: [employer] PLAN / Plan: Silith.IO GENERIC / Product Type: PPO / Tesha [...] Date Reviewed: Never Reviewed Reason for Visit: Lvn - Other [5943] Cmt: Initial OB RN CC pool Problem List As Of Date: 07/17/2024 (None) Encounter Status:Closed by SALONI BRUNO on 07/19/24 Normal [facility] RPRon 05-29-2024 Reagin Ab RPR Ql (S) Non-Reactive Normal Non-Reactive [facility] Comment on above: Result Comment: The [...] #### R UBIS, HBSAG, RPR, VARIS #### [place] [address] #### CBC, ADIFF, TSH, ANEU, ABSGEL, ABOGEL, HIVRP #### [address] [address] RUBISon 05-29-[address] Positive Normal Positive [facility] Comment on above: Result Comment: This immune status assay detects IgM and/or IgG antibody to Rubella. Interpret results in conjunction with clinical history. POS: Antibody detected; exposure at undetermined recent or distant time. If clinically indicated, order Rubella IGM to rule out recent infection. NEG: No antibody detected. Performed By: #### R UBIS, HBSAG, RPR, VARIS #### [place] [address] #### CBC, ADIFF, TSH, ANEU, ABSGEL, ABOGEL, HIVRP #### [place] [address] VARISon 05-27-[address] Positive Normal [facility] Comment on above: Result Comment: INTE RPRETATION OF VARICELLA IMMUNE STATUS IgG BY EIA: Negative: No detectable VZV IgG antibody. Positive: VZV IgG antibody Detected. If clinically indicated, order Varicella IgM to rule out recent infection. Equivocal: Equivocal for antibodies to VZV. Suggest repeat testing in 10-14 days. Performed By: #### R UBIS, HBSAG, RPR, VARIS #### [place] [address] #### CBC, ADIFF, TSH, ANEU, ABSGEL, ABOGEL, HIVRP #### [address] [address] .Auto Diffon 05-26-2024 Basophil, Absolute 0.0 10 3/mcL Normal 0.0-0.2 [facility] Comment on above: Performed By: #### R UBIS, HBSAG, RPR, VARIS #### [place] [address] #### CBC, ADIFF, TSH, ANEU, ABSGEL, ABOGEL, HIVRP #### [place] [address] Basophils/100 WBC (Bld) 0.3 % Normal 0.0-2.5 [facility] Comment on above: Performed By: #### R UBIS, HBSAG, RPR, VARIS #### [place] [address] #### CBC, ADIFF, TSH, ANEU, ABSGEL, ABOGEL, HIVRP #### [address] [address] Eosinophil, Absolute 0.3 10 3/mcL Normal 0.0-0.7 [facility] Comment on above: Performed By: #### R UBIS, HBSAG, RPR, VARIS #### [place] [address] #### CBC, ADIFF, TSH, ANEU, ABSGEL, ABOGEL, HIVRP #### [address] [address] Eosinophils/100 WBC (Bld) 2.7 % Normal 0.0-7.0 [facility] Comment on above: Performed By: #### R UBIS, HBSAG, RPR, VARIS #### [place] [address] #### CBC, ADIFF, TSH, ANEU, ABSGEL, ABOGEL, HIVRP #### [address] [address] Lymphocyte, Absolute 1.9 10 3/mcL Normal 0.9-4.3 [facility] Comment on above: Performed By: #### R UBIS, HBSAG, RPR, VARIS #### [place] [address] #### CBC, ADIFF, TSH, ANEU, ABSGEL, ABOGEL, HIVRP #### [address] [address] Lymphocytes/100 WBC (Bld) 20.0 % Normal 20.0-40.0 [facility] Comment on above: Performed By: #### R UBIS, HBSAG, RPR, VARIS #### [place] [address] #### CBC, ADIFF, TSH, ANEU, ABSGEL, ABOGEL, HIVRP #### [address] [address] Monocyte, Absolute 0.5 10 3/mcL Normal 0.1-1.4 [facility] Comment on above: Performed By: #### R UBIS, HBSAG, RPR, VARIS #### [place] [address] #### CBC, ADIFF, TSH, ANEU, ABSGEL, ABOGEL, HIVRP #### [address] [address] Monocytes/100 WBC (Bld) 5.1 % Normal 2.0-13.0 [facility] Comment on above: Performed By: #### R UBIS, HBSAG, RPR, VARIS #### [place] [address] #### CBC, ADIFF, TSH, ANEU, ABSGEL, ABOGEL, HIVRP #### [address] [address] Neutrophils/100 WBC (Bld) 71.9 % Normal 50.0-75.0 [facility] Comment on above: Performed By: #### R UBIS, HBSAG, RPR, VARIS #### [place] [address] #### CBC, ADIFF, TSH, ANEU, ABSGEL, ABOGEL, HIVRP #### [address] [address] .NEUABSon 05-26-2024 Neutrophil, Absolute 6.8 10 3/mcL Normal 2.3-8.1 [facility] Comment on above: Performed By: #### R UBIS, HBSAG, RPR, VARIS #### [place] [address] #### CBC, ADIFF, TSH, ANEU, ABSGEL, ABOGEL, HIVRP #### [address] [address] ABO/Rh (Gel)on 12-06-2024 ABO/Rh Interp AB POS Invalid Interpretation Code [facility] Comment on above: Performed By: #### R UBIS, HBSAG, RPR, VARIS #### [place] [address] #### CBC, ADIFF, TSH, ANEU, ABSGEL, ABOGEL, HIVRP #### [address] [address] ABS (Gel)on 05-26-2024 ABSC Interp (Gel) Negative Normal [facility] Comment on above: Performed By: #### R UBIS, HBSAG, RPR, VARIS #### [place] [address] #### CBC, ADIFF, TSH, ANEU, ABSGEL, ABOGEL, HIVRP #### [address] [address] C. trachomatis+N. gonorrhoea e DNA SILVIA+probe Ql (Unsp spec)on 05-26-2024 C. trachomatis rRNA SILVIA+probe Ql (Unsp spec) Not detected Not detected [facility] N. gonorrhoeae rRNA SILVIA+probe Ql (Unsp spec) Not detected Not detected [facility] CBCon 05-26-2024 Erythrocyte distribution width (RBC) [Ratio] 12.5 % Normal 11.5-15.5 [facility] Comment on above: Performed By: #### R UBIS, HBSAG, RPR, VARIS #### [place] [address] #### CBC, ADIFF, TSH, ANEU, ABSGEL, ABOGEL, HIVRP #### [address] [address] Hematocrit (Bld) [Volume fraction] 35.8 % Normal 34.0-46.0 [facility] Comment on above: Performed By: #### R UBIS, HBSAG, RPR, VARIS #### [place] [address] #### CBC, ADIFF, TSH, ANEU, ABSGEL, ABOGEL, HIVRP #### [address] [address] Hgb 12.3 G/dL Normal 12.0-16.0 [facility] Comment on above: Performed By: #### R UBIS, HBSAG, RPR, VARIS #### [place] [address] #### CBC, ADIFF, TSH, ANEU, ABSGEL, ABOGEL, HIVRP #### [address] [address] MCH (RBC) [Entitic mass] 32.6 pg Normal 27.0-33.0 [facility] Comment on above: Performed By: #### R UBIS, HBSAG, RPR, VARIS #### [place] [address] #### CBC, ADIFF, TSH, ANEU, ABSGEL, ABOGEL, HIVRP #### [place] [address] MCHC 34.4 G/dL Normal 32.0-36.0 [facility] Comment on above: Performed By: #### R UBIS, HBSAG, RPR, VARIS #### [place] [address] #### CBC, ADIFF, TSH, ANEU, ABSGEL, ABOGEL, HIVRP #### [address] [address] MCV (RBC) [Entitic vol] 94.7 fL Normal 80.0-99.0 [facility] Comment on above: Performed By: #### R UBIS, HBSAG, RPR, VARIS #### [place] [address] #### CBC, ADIFF, TSH, ANEU, ABSGEL, ABOGEL, HIVRP #### [place] [address] Platelet 243 10 3/mcL Normal 150-450 [facility] Comment on above: Performed By: #### R UBIS, HBSAG, RPR, VARIS #### [place] [address] #### CBC, ADIFF, TSH, ANEU, ABSGEL, ABOGEL, HIVRP #### [address] [address] Platelet mean volume (Bld) [Entitic vol] 8.4 fL Normal 6.6-10.5 [facility] Comment on above: Performed By: #### R UBIS, HBSAG, RPR, VARIS #### [place] [address] #### CBC, ADIFF, TSH, ANEU, ABSGEL, ABOGEL, HIVRP #### [address] [address] RBC 3.78 10 6/mcL Low 4.10-5.30 [facility] Comment on above: Performed By: #### R UBIS, HBSAG, RPR, VARIS #### [place] [address] #### CBC, ADIFF, TSH, ANEU, ABSGEL, ABOGEL, HIVRP #### [address] [address] WBC 9.4 10 3/mcL Normal 4.5-10.8 [facility] Comment on above: Performed By: #### R UBIS, HBSAG, RPR, VARIS #### [place] [address] #### CBC, ADIFF, TSH, ANEU, ABSGEL, ABOGEL, HIVRP #### [address] [address] CBC panel Auto (Bld)Ordered By: Jami Jean on 05-26-2024 Hematocrit (Bld) [Volume fraction] 35.4 % Abnormal 36.0 - 46.0 % [facility] Hemoglobin (Bld) [Mass/Vol] 12 g/dL 11.5 - 15.5 g/dL [facility] Interpretation and review of laboratory results Abnormal [facility] Platelets (Bld) [#/Vol] 318 10*3/uL k/uL [facility] HBSAGon 05-26-2024 Hep B Surf Ag Non-Reactive Normal Non-Reactive [facility] Comment on above: Performed By: #### R UBIS, HBSAG, RPR, VARIS #### [place] [address] #### CBC, ADIFF, TSH, ANEU, ABSGEL, ABOGEL, HIVRP #### [address] [address] HEPATITIS B SURFACE ANTIGENo n 05-26-2024 HBV surface Ag Ql (S) Negative [facility] HIV 1+2 Ab IA Qlon HIV 1+2 Ab+HIV1 p24 Ag IA Ql Non-Reactive [facility] HIVRPon 05-26-2024 HIV p24 Antigen Non-Reactive Normal Non-Reactive [facility] Comment on above: Result Comment: Dete ction of p24 may be inhibited by biotin in the sample, causing false negative results in acute infection. Therefore do not test samples from patients who are taking biotin. Performed By: #### R UBIS, HBSAG, RPR, VARIS #### [place] [address] #### CBC, ADIFF, TSH, ANEU, ABSGEL, ABOGEL, HIVRP #### [place] [address] HIV P24 Int Non-Reactive Invalid Interpretation Code [facility] Comment on above: Performed By: #### R UBIS, HBSAG, RPR, VARIS #### [place] [address] #### CBC, ADIFF, TSH, ANEU, ABSGEL, ABOGEL, HIVRP #### [place] [address] Rapid HIV 1/2 Antibody Non-Reactive Normal Non-Reactive [facility] Comment on above: Performed By: #### R UBIS, HBSAG, RPR, VARIS #### [place] [address] #### CBC, ADIFF, TSH, ANEU, ABSGEL, ABOGEL, HIVRP #### [address] [address] RHIV 1/2 Ab Int Non-Reactive Invalid Interpretation Code [facility] Comment on above: Performed By: #### R UBIS, HBSAG, RPR, VARIS #### [address] [address] #### CBC, ADIFF, TSH, ANEU, ABSGEL, ABOGEL, HIVRP #### [place] [address] [place], [place] [address] LABORATORYOrdered By: Carol Hayward on 05-26-2024 ABO [...] Panel InformationOrdered By: Jami Jean on 05-26-2024 [facility] RPR SCREENon 05-26-2024 Reagin Ab RPR Ql (S) Non-Reactive Nonreactive [facility] RUBELLA IGG ANTIBODYon 05-26 Rubella Antibody, IgG 6.2 Index [facility] Comment on above: Immune TSHon 05-26-2024 TSH Qn 1.42 m[IU]/L Normal 0.36-3.74 [facility] Comment on above: Performed By: #### R UBIS, HBSAG, RPR, VARIS #### [facility] [address] [place] [address] #### CBC, ADIFF, TSH, ANEU, ABSGEL, ABOGEL, HIVRP #### [place] [address] [place], [place] [address] TSH (EXTERNAL)on 05-26-2024 TSH Qn 2.84 m[IU]/L [facility] TYPE + SCREEN (EXTERNAL LAB) on 05-26-2024 ABO/RH(D) (EXTERNAL) Positive [facility] VARICELLA ZOSTER IGGon 05-26 VZV IgG Qn (S) Positive [facility] LABORATORYOrdered By: SYSTEM SYSTEM on 07-06-2023 25-hydroxyvitamin D3 [Mass/Vol] 69.3 ng/mL Invalid Interpretation Code AO ADM SS Comment on above: Interpretive Data: I nterpretive Values Based on Total 25(OH) Vitamin D: Deficient <20 ng/mL Insufficient 20 - <30 ng/mL Sufficient 30-100 ng/mL VIDHon 07-06-2023 Vit. D 25-Hydroxy 69.3 ng/mL Normal [facility] ([place]) Comment on above: Result Comment: Inte rpretive Values Based on Total 25(OH) Vitamin D: Deficient <20 ng/mL Insufficient 20 - <30 ng/mL Sufficient 30-100 ng/mL Performed By: #### V IDH #### [address] [address] .GFRon 04-21-2023 GFR 126 ml/min/1.73sqm Normal [facility] ([place]) Comment on above: Result [...] T SH, VIDH, CMP, GFR, LIPID #### [address] [address] #### HCV1 #### [address] [address] GFR Non- 104 ml/min/1.73sqm Normal [facility] ([place]) Comment on above: Result Comment: GFR Population [...] T SH, VIDH, CMP, GFR, LIPID #### [address] [address] #### HCV1 #### [address] [address] CMPon 04-21-2023 Albumin Level 4.1 G/dL Normal 3.5-5.0 [facility] ([place]) Comment on above: Performed By: #### T SH, VIDH, CMP, GFR, LIPID #### [address] [address] #### HCV1 #### [address] [address] Albumin/Globulin [Mass ratio] 1.3 {ratio} Normal 1.1-2.5 [facility] ([place]) Comment on above: Performed By: #### T SH, VIDH, CMP, GFR, LIPID #### [place] [address] #### HCV1 #### [address] [address] ALP [Catalytic activity/Vol] 49 U/L Normal 40-135 [facility] ([place]) Comment on above: Performed By: #### T SH, VIDH, CMP, GFR, LIPID #### [place] [address] #### HCV1 #### [address] [address] ALT [Catalytic activity/Vol] 36 U/L Normal 14-59 [facility] ([place]) Comment on above: Performed By: #### T SH, VIDH, CMP, GFR, LIPID #### [place] [address] #### HCV1 #### [place] [address] AST [Catalytic activity/Vol] 50 U/L High 10-40 [facility] ([place]) Comment on above: Performed By: #### T SH, VIDH, CMP, GFR, LIPID #### [place] [address] #### HCV1 #### [address] [address] Bili Total 0.5 mg/dL Normal 0.2-1.0 [facility] ([place]) Comment on above: Result Comment: Use of this assay is not recommended for patients undergoing treatment with eltrombopag due to the potential for falsely elevated results. Performed By: #### T SH, VIDH, CMP, GFR, LIPID #### [place] [address] #### HCV1 #### [place] [id number] BUN/Creatinine Ratio 20 ratio Normal 7-27 [facility] ([place]) Comment on above: Performed By: #### T SH, VIDH, CMP, GFR, LIPID #### [place] [address] #### HCV1 #### [address] [address] Calcium [Mass/Vol] 9.1 mg/dL Normal 8.4-10.2 [facility] ([place]) Comment on above: Performed By: #### T SH, VIDH, CMP, GFR, LIPID #### [address] [address] #### HCV1 #### [address] [address] Chloride [Moles/Vol] 103 mmol/L Normal 98-107 [facility] ([place]) Comment on above: Performed By: #### T SH, VIDH, CMP, GFR, LIPID #### [place] [address] #### HCV1 #### [address] [address] CO2 [Moles/Vol] 26 mmol/L Normal 22-29 [facility] ([place]) Comment on above: Performed By: #### T SH, VIDH, CMP, GFR, LIPID #### [place] [address] #### HCV1 #### [place] [address] Creatinine [Mass/Vol] 0.70 mg/dL Normal 0.55-1.02 [facility] ([place]) Comment on above: Performed By: #### T SH, VIDH, CMP, GFR, LIPID #### [place] [address] #### HCV1 #### [address] [address] Electrolyte Balance 10.0 mEq/L Normal 4.0-15.0 [facility] ([place]) Comment on above: Performed By: #### T SH, VIDH, CMP, GFR, LIPID #### [place] [address] #### HCV1 #### [place] [address] Globulin 3.2 G/dL Normal [facility] ([place]) Comment on above: Performed By: #### T SH, VIDH, CMP, GFR, LIPID #### [address] [address] #### HCV1 #### [address] [address] Glucose [Mass/Vol] 91 mg/dL Normal 70-105 [facility] ([place]) Comment on above: Performed By: #### T SH, VIDH, CMP, GFR, LIPID #### [address] [address] #### HCV1 #### [address] [address] Potassium [Moles/Vol] 4.8 mmol/L Normal 3.5-5.1 [facility] ([place]) Comment on above: Performed By: #### T SH, VIDH, CMP, GFR, LIPID #### [place] [address] #### HCV1 #### [address] [address] Sodium [Moles/Vol] 139 mmol/L Normal 136-145 [facility] ([place]) Comment on above: Performed By: #### T SH, VIDH, CMP, GFR, LIPID #### [address] [address] #### HCV1 #### [address] [address] Total Protein 7.3 G/dL Normal 6.4-8.2 [facility] ([place]) Comment on above: Performed By: #### T SH, VIDH, CMP, GFR, LIPID #### [address] [address] #### HCV1 #### [address] [address] Urea nitrogen [Mass/Vol] 14 mg/dL Normal 7-18 [facility] ([place]) Comment on above: Performed By: #### T SH, VIDH, CMP, GFR, LIPID #### [address] [address] #### HCV1 #### [place] [address] HCVon 04-21-2023 Hep C Ab Non-Reactive Normal Non-Reactive [facility] ([place]) Comment on above: Performed By: #### T SH, VIDH, CMP, GFR, LIPID #### [place] [id number] #### HCV1 #### [place] [address] Hep C Ab Int Normal [facility] ([place]) Comment on above: Result Comment: Nonr eactive: [...] T SH, VIDH, CMP, GFR, LIPID #### [address] [address] #### HCV1 #### [place] [address] LABORATORYOrdered By: SYSTEM SYSTEM on 04-21-2023 25-hydroxyvitamin [...] 04-21-2023 Cholesterol [Mass/Vol] 163 mg/dL Normal 0-200 [facility] ([place]) Comment on above: Result Comment: Chol esterol Reference Interval: Less than 200 Desirable 200-239 Borderline high risk 240 and above High risk Performed By: #### T SH, VIDH, CMP, GFR, LIPID #### [place] [address] #### HCV1 #### [address] [address] Cholesterol in HDL [Mass/Vol] 47 mg/dL Normal 40-60 [facility] ([place]) Comment on above: Performed By: #### T SH, VIDH, CMP, GFR, LIPID #### [place] [address] #### HCV1 #### [address] [address] Cholesterol in LDL [Mass/Vol] 101 mg/dL Normal 0-130 [facility] ([place]) Comment on above: Performed By: #### T SH, VIDH, CMP, GFR, LIPID #### [place] [address] #### HCV1 #### [address] [address] Triglyceride [Mass/Vol] 77 mg/dL Normal 0-150 [facility] ([place]) Comment on above: Result Comment: Trig lyceride Reference Interval: Less than 150 Normal 150-199 Borderline high risk 200-499 High risk 500 or higher Very high risk Performed By: #### T SH, VIDH, CMP, GFR, LIPID #### [place] [address] #### HCV1 #### [address] [address] TSHon 04-21-2023 TSH Qn 1.87 m[IU]/L Normal 0.36-3.74 [facility] ([place]) Comment on above: Performed By: #### T SH, VIDH, CMP, GFR, LIPID #### [address] [address] #### HCV1 #### [place] [address] VIDHon 04-21-2023 Vit. D 25-Hydroxy 26.1 ng/mL Normal [facility] ([place]) Comment on above: Result Comment: Inte rpretive Values Based on Total 25(OH) Vitamin D: Deficient <20 ng/mL Insufficient 20 - <30 ng/mL Sufficient 30-100 ng/mL Performed By: #### T SH, VIDH, CMP, GFR, LIPID #### [address] [address] #### HCV1 #### [place] [address] LABORATORYOrdered By: Aleida Kaplan on 03-21-2022 Albumin [...] Reporton 0 02-18-2022 Urgent Care Visit Report [facility] [address] [place] [address] [address] [place] [id number] OFFICE VISIT Date of Service: 02/18/22 MR#: [id number] Acct: [id number] Name: MELQUIADES MUSTAFA Rep #: [id number] : 2000 Provider: RACHID torres Age/Sex: 21/F Location: [facility] Status: Signed Intake Vital Signs 02/18/17 08:55 [...] today. Patient aware of isolation recommendations and [facility] department notification. Follow-up with PCP in 5 to 7 days should symptoms not improve, ED sooner should symptoms worsen or any other concerns develop. Patient states acknowledging understanding all the above. This note was generated with [employer] dictation software. It may contain incorrect words, spelling, and punctuation that were not noted in checking the note before signing. Orders: Orders POC Keith Covid FLUAB PCR Today R53.83 - Other fatigue Medications: New dexamethasone (Decadron) 6 mg PO DAILY 5 tabs 0RF 02/18/22 1241 Date Ajay Ruff Signature: Date (if applicable) CC: Normal [facility] JSon 07-27-2017 MARI[facility] REPORT Normal [facility] [place] JS DATE OF SERVICE: 11/2017A 17-year-old female [...] antibiotics. Off-school note was given today. _ADINA Mcdonald/[id number]: 07/27/2017 11:33DT: 07/27/2017 13:01SSI File#: [id number] #: [id number]/Reviewed by07/29/17 0801 YANI *[facility] PATIENT NAME: MELQUIADES MUSTAFA [address] MEDICAL REC #: [id number] [address] STATCARE REPORT STATCARE PHYSICIAN Normal [facility] [place] [facility] 04-[facility]-2017 HCG.beta subunit Qn Negative Normal NEGATIVE Counts Include [address] [facility] Comment on above: Result Comment: Seru m Test is more Sensitive than a UrinePregnancy Test. Please Note Threshold Values: SERUM - 10mlU/mL URINE - 20mlU/mL Performed By: #### L 200.4092 ####ML - [id number] [place] [address] BMPon 04-28-2017 Anion gap 15.9 mmol/L Normal 15-22 Counts Include [address] [facility] Comment on above: Performed By: #### L 100.0010 ####ML - [id number] [place] [address] Calcium 9.2 mg/dL Normal 8.4-10.2 Counts Include [address] [facility] Comment on above: Performed By: #### L 100.0010 ####ML - [id number] [place] [address] Chloride 100 mmol/L Normal 98-107 Counts Include [address] [facility] Comment on above: Performed By: #### L 100.0010 ####ML - [id number] [place] [address] CO2 26 mmol/L Normal 22-29 Counts Include [address] [facility] Comment on above: Performed By: #### L 100.0010 ####ML - [id number] [place] [address] Creatinine 0.49 mg/dL Low 0.50-0.90 Counts Include [address] [facility] Comment on above: Performed By: #### L 100.0010 ####ML - [id number] [place] [address] eGFR (non-black) > 60 ml/Min/1.73m2 Normal Counts Include [address] Comment on above: Performed By: #### L 100.0010 ####ML - [id number] [place] [address] Glucose mass conc 94 mg/dL Normal 60-100 Counts Include [address] [facility] Comment on above: Performed By: #### L 100.0010 ####[address] [address] Potassium molar conc 3.9 mmol/L Normal 3.5-5.0 Counts Include [address] [facility] Comment on above: Performed By: #### L 100.0010 ####[address] [address] Sodium 138 mmol/L Normal 135-145 Counts Include [address] [facility] Comment on above: Performed By: #### L 100.0010 ####[address] [address] Urea nitrogen 12 mg/dL Normal 5-18 Counts Include [address] [facility] Comment on above: Performed By: #### L 100.0010 ####[address] [address] CBCon 04-28-2017 Basophils Auto #/vol (Bld) 0.00 x10(3) Normal 0.00-0.10 Counts Include [address] [facility] Comment on above: Performed By: #### L 200.0010 ####[address] [address] Basophils/100 WBC Auto (Bld) 0.3 % Normal 0.0-1.0 Counts Include [address] [facility] Comment on above: Performed By: #### L 200.0010 ####[address] [address] Eosinophils 0.10 x10(3) Normal 0.00-0.54 Counts Include [address] [facility] Comment on above: Performed By: #### L 200.0010 ####[address] [address] Eosinophils/100 leukocytes 2.4 % Normal 0.5-4.9 Counts Include [address] [facility] Comment on above: Performed By: #### L 200.0010 ####[address] [address] Erythrocyte distribution width Auto Ratio (RBC) 12.6 % Normal 12.5-15.7 Counts Include [address] [facility] Comment on above: Performed By: #### L 200.0010 ####[address] [address] Erythrocytes (RBC) 4.20 x10(6) Normal 3.30-5.00 Counts Include [address] [facility] Comment on above: Performed By: #### L 200.0010 ####ML - [id number] [place] [address] 45972 Hematocrit (HCT) 39.0 % Normal 36.0-48.0 Counts Include [facility] Comment on above: Performed By: #### L 200.0010 ####ML - [id number] [place] [address] 89254 Hemoglobin mass conc (Bld) 13.5 g/dL Normal 12.0-16.0 Counts Include [facility] Comment on above: Performed By: #### L 200.0010 ####ML - [id number] [place] [address] 10897 Lymphocytes 1.20 x10(3) Normal 1.00-3.50 Counts Include [facility] Comment on above: Performed By: #### L 200.0010 ####ML - [id number] [place] [address] 60400 Lymphocytes/100 leukocytes 22.3 % Normal 16.0-48.0 Counts Include [address] [facility] Comment on above: Performed By: #### L 200.0010 ####ML - [id number] [place] [address] 89747 MCH 32.1 pg Normal 28.5-32.9 Counts Include [address] [facility] Comment on above: Performed By: #### L 200.0010 ####ML - [id number] [place] [address] 39869 MCHC mass conc (RBC) 34.6 g/dL Normal 33.0-36.0 Counts Include [facility] Comment on above: Performed By: #### L 200.0010 ####ML - VOCROTCOXB[address] [place] [address] 48721 MCV 92.8 fL Normal 80.0-99.0 Counts Include [address] [facility] Comment on above: Performed By: #### L 200.0010 ####ML - HZVXZKBUUU996[address] [place] [address] 69611 Monocytes 0.50 x10(3) Normal 0.30-0.80 Counts Include [address] [facility] Comment on above: Performed By: #### L 200.0010 ####ML - YUKUMCIQYU440 [place] [address] Monocytes/100 leukocytes 8.8 % Normal 4.3-11.2 Counts Include [address] [facility] Comment on above: Performed By: #### L 200.0010 ####ML - OIURUFCCZB[address] [place] [address] Neutrophils 3.60 x10(3) Normal 1.40-6.50 Counts Include [address] [facility] Comment on above: Performed By: #### L 200.0010 ####ML - GANUQPXTGP[address] [place] [address] Neutrophils/100 WBC Auto (Bld) 66.2 % Normal 45.0-73.0 Counts Include [address] [facility] Comment on above: Performed By: #### L 200.0010 ####ML - HGJPEVIWPT[address] [place] [address] 77375 Platelet mean volume (PMV) 8.4 fL Normal 7.5-9.5 Counts Include [address] [facility] Comment on above: Performed By: #### L 200.0010 ####ML - OHNLFKPUEM[address] [place] [address] 52946 Platelets 202 X10(3) Normal 150-450 Counts Include [address] [facility] Comment on above: Performed By: #### L 200.0010 ####ML - RXBMGJHFCM[address] [place] [address] 80861 WBC (Leukocytes) 5.4 x10(3) Normal 4.5-10.0 Counts Include [address] [facility] Comment on above: Performed By: #### L 200.0010 ####ML [facility] MOZ[address]NNT[address] [place] [address] 33891 EMERGENCY DEPARTMENT REPORTo n 04-28-2017 EMERGENCY DEPARTMENT REPORT [place], [place] [address]ETZOBX INFORMATION MANAGEMENTEMERGENCY DEPARTMENT REPORTPatient: SALTY MUSTAFA JEFFREY M.D.[id number] FStatus: DEP ER EDDate of Service: 04/28/17CHIEF [...] M.D. << Signature on File>> Reported By: CHRSITINA MCCALLUM M.D. Signed By: CHRISTINA MCCALLUM M.D.Tests performed at:[address] [id number] [facility] STRP SCNon 04-26-2017 STRP SCN Performed at: [facility] [address] [place], [place] [address] STREP SCREEN NEGATIVE - CULTURE TO FOLLOW REFERENCE RANGE NORMAL RESULT IS NEGATIVE. Normal Counts Include [address] [facility] THTon 04-26-2017 THT NO GROUP A BETA STRE P ISOLATED Normal Counts Include [address] [facility] Comment on above: Performed By: #### M 130.0700 ####ML - [id number] [place] [address] 15869 ORon 03-01-2017 OPERATIVE REPORT This is a preliminar y report only, as the practitioner review and authentication has not occurred. Normal [facility] [place] OR DATE OF SERVICE: 03/01/2017PREOPERATIVE DIAGNOSIS: Chronic [...] the recovery room in satisfactorycondition. Ignacia Maza MDBT/[id number]: 03/01/2017 12:26DT: 03/01/2017 21:14SSI File#: [id number] #: [id number] *[facility] PATIENT NAME: MELQUIADES MUSTAFA [id number] [facility] [address] Pugh [facility] REC #: [id number], [place] [address] DATE:DISCHARGE DATE:OPERATIVE REPORT ATTENDING PHY: Ignacia Maza MD Normal [facility] URINE PREGNANCYon 03-01-2017 UR HCG QUAL Negative Normal NEGATIVE [facility] Comment on above: Order Comment: Chema s: M Performed By: #### L 600.61300 ####[facility] [id number] [place], [place] [address]Bk# [phone] UR SPEC GRAV 1.020 Normal 1.005-1.030 [facility] [place] Comment on above: Order Comment: Chema emmanuel: Grabiel Performed By: #### L 600.97965 ####[facility] [id number] [place], [place] [address]Qh# [phone] Vital Signs Date Time Vital Sign Value Performing Clinician Shaw peterson 11-29-2024 09:15-0400 Body mass index (BMI) [Ratio] 25.24 kg/m2 Deanna Plotts INDUSTRIAL HYGIENIST.CNM Work Phone: [facility] 11-29-2024 09:15-0400 Body weight 67.13 kg Deanna Plotts INDUSTRIAL HYGIENIST.CNM Work Phone: [facility] 11-29-2024 09:15-0400 Diastolic blood pressure 68 mm[Hg] Deanna Plotts INDUSTRIAL HYGIENIST.CNM Work Phone: [facility] 11-29-2024 09:15-0400 Systolic blood pressure 100 mm[Hg] Deanna Plotts INDUSTRIAL HYGIENIST.CNM Work Phone: [facility] 11-20-2024 13:25-0400 Body mass index (BMI) [Ratio] 25.13 kg/m2 Mattie Harman MD Work Phone: [facility] 11-20-2024 13:25-0400 Body weight 66.86 kg Mattie Harman MD Work Phone: [facility] 11-20-2024 13:25-0400 Diastolic blood pressure 60 mm[Hg] Mattie Harman MD Work Phone: [facility] 11-20-2024 13:25-0400 Systolic blood pressure 100 mm[Hg] Mattie Harman MD Work Phone: [facility] 11-15-2024 14:48-0400 Body mass index (BMI) [Ratio] 24.72 kg/m2 Eliana Wong MD Work Phone: [facility] 11-15-2024 14:48-0400 Body weight 65.77 kg Eliana Wong MD Work Phone: [facility] 11-15-2024 14:48-0400 Diastolic blood pressure 68 mm[Hg] Eliana Wong MD Work Phone: [facility] 11-15-2024 14:48-0400 Systolic blood pressure 108 mm[Hg] Eliana Wnog MD Work Phone: [facility] 10-25-2024 13:34-0400 Body mass index (BMI) [Ratio] 24.21 kg/m2 Eliana Wong MD Work Phone: [facility] 10-25-2024 13:34-0400 Body weight 64.41 kg Eliana Wong MD Work Phone: [facility] 10-25-2024 13:34-0400 Diastolic blood pressure 66 mm[Hg] Eliana Wong MD Work Phone: [facility] 10-25-2024 13:34-0400 Systolic blood pressure 100 mm[Hg] Eliana Wong MD Work Phone: [facility] 09-29-2024 11:30-0400 Body mass index (BMI) [Ratio] 23.7 kg/m2 Saloni Zuniga MD Work Phone: [facility] 09-29-2024 11:30-0400 Body weight 63.05 kg Saloni Zuniga MD Work Phone: [facility] 09-29-2024 11:30-0400 Diastolic blood pressure 62 mm[Hg] Saloni Zuniga MD Work Phone: [facility] 09-29-2024 11:30-0400 Systolic blood pressure 114 mm[Hg] Saloni Zuniga MD Work Phone: [facility] 09-15-2024 10:00-0400 Body mass index (BMI) [Ratio] 23.53 kg/m2 Sabrina Campos APRN.CNM Work Phone: [facility] 09-15-2024 10:00-0400 Body weight 62.6 kg Sabrina Campos INDUSTRIAL HYGIENIST.CNM Work Phone: [facility] 09-15-2024 10:00-0400 Diastolic blood pressure 62 mm[Hg] Sabrina Campos INDUSTRIAL HYGIENIST.CNM Work Phone: [facility] 09-15-2024 10:00-0400 Systolic blood pressure 108 mm[Hg] Sabrina Campos INDUSTRIAL HYGIENIST.CNM Work Phone: [facility] 08-17-2024 14:25-0500 Body mass index (BMI) [Ratio] 22.68 kg/m2 Lisbeth Morris MD Work Phone: [facility] 08-17-2024 14:25-0500 Body weight 60.33 kg Lisbeth Morris MD Work Phone: [facility] 08-17-2024 14:25-0500 Diastolic blood pressure 60 mm[Hg] Lisbeth Morris MD Work Phone: [facility] 08-17-2024 14:25-0500 Systolic blood pressure 106 mm[Hg] Lisbeth Morris MD Work Phone: [facility] 07-26-2024 13:45-0500 Body height 163.1 cm Loraine Haury INDUSTRIAL HYGIENIST.WORM PICKER Work Phone: [facility] 07-26-2024 13:45-0500 Body mass index (BMI) [Ratio] 22 kg/m2 Loraine Haury INDUSTRIAL HYGIENIST.WORM PICKER Work Phone: [facility] 07-26-2024 13:45-0500 Body weight 58.51 kg Loraine Haury INDUSTRIAL HYGIENIST.WORM PICKER Work Phone: [facility] 07-26-2024 13:45-0500 Diastolic blood pressure 60 mm[Hg] Loraine Haury INDUSTRIAL HYGIENIST.WORM PICKER Work Phone: [facility] 07-26-2024 13:45-0500 Systolic blood pressure 110 mm[Hg] Loraine Haury INDUSTRIAL HYGIENIST.WORM PICKER Work Phone: [facility] Encounters Encounter [...] Start: 11-29-2024 End: 11-29-2024 ambulatory DEANNA LIN Facility:[facility] Start: 11-28-2024 End: 11-28-2024 ambulatory Izabel Priest MA [facility] Start: 11-28-2024 End: 11-28-2024 Patient encounter procedure Izabel Priest MA [facility] Comment on above: Population Health Na vigation Outreach (Ob/peds) Start: 11-20-2024 End: 11-20-2024 Patient encounter procedure Mattie Harman MD Work Phone: OB/Gynecology Comment on above: Supervision of high risk due to social problems, third trimester (HCC) (Primary Dx); 38 weeks gestation of (HCC); Depression affecting (HCC) Start: 11-20-2024 End: 11-20-2024 ambulatory MATTIE HARMAN Facility:[facility] Start: 11-17-2024 End: 11-21-2024 ambulatory SHARMILA CHAUDHARI DO Facility:[facility] Start: 11-15-2024 End: 11-15-2024 Patient encounter procedure Eliana Wong MD Work Phone: OB/Gynecology Comment on above: Supervision of high risk due to social problems, third trimester (HCC) (Primary Dx); Depression affecting (HCC); Uterine size-date discrepancy, third trimester (HCC); 37 weeks gestation of (HCC) Start: 11-15-2024 End: 11-15-2024 ambulatory ELIANA WONG Facility:[facility] Start: 11-08-2024 End: 11-08-2024 ambulatory DEANNA LIN Facility:[facility] Start: 10-26-2024 End: 11-01-2024 Telephone encounter Tere Elise MOLD YARN SUPERVISOR Navigation Start: 10-25-2024 End: 10-25-2024 Patient encounter procedure Whi Tech 1 Production Control Specialist M[employer] [facility]str [facility] Maternal Medicine Comment on above: Encounter for ultras ound to check growth (HCC) (Primary Dx); Uterine size-date discrepancy, third trimester (HCC); 34 weeks gestation of (HCC) Supervision of high risk due to social problems, third trimester (HCC) (Primary Dx); Uterine size-date discrepancy, third trimester (HCC); 34 weeks gestation of (HCC) Start: 10-25-2024 End: 10-25-2024 ambulatory LISBETH MORRIS Facility:[facility] Start: 10-13-2024 End: 10-13-2024 ambulatory LISBETH MORRIS Facility:[facility] Start: 09-29-2024 End: 09-29-2024 ambulatory SALONI ZUNIGA Facility:[facility] Start: 09-29-2024 End: 09-29-2024 Patient encounter procedure Saloni Zuniga MD Work Phone: OB/Gynecology Comment on above: 31 weeks gestation o f (HCC) (Primary Dx); Depression affecting (HCC); Encounter for supervision of normal first in third trimester ([facility]) Start: 09-18-2024 End: 11-18-2024 Follow-up encounter Radha Albright MD Work Phone: OB/Gynecology Start: 09-15-2024 End: 09-15-2024 Patient encounter procedure Sabrina Campos APRN.CNM Work Phone: OB/Gynecology Comment on above: Encounter for superv ision of normal first in third trimester (Primary Dx); 29 weeks gestation of ; Depression affecting Start: 09-15-2024 End: 09-15-2024 ambulatory SABRINA CAMPOS Facility:[facility] Start: 08-17-2024 End: 08-17-2024 ambulatory LISBETH MORRIS Facility:[facility] Start: 08-17-2024 End: 08-17-2024 Patient encounter procedure Lisbeth Morris MD Work Phone: OB/Gynecology Comment on above: Encounter for superv ision of normal first in second trimester (Primary Dx); 25 weeks gestation of ; Screening for diabetes mellitus Start: 08-14-2024 End: 08-14-2024 Patient encounter procedure Whi Tech 1 Production Control Specialist [facility] Comment on above: Encounter for anatomic survey (Primary Dx); 24 weeks gestation of Start: 08-14-2024 End: 08-14-2024 ambulatory LORAINE VALERIO Facility:[facility] Start: 07-26-2024 End: 07-26-2024 ambulatory LORAINE VALERIO Facility:[facility] Start: 07-26-2024 End: 07-26-2024 Patient encounter procedure Loraine Valerio INDUSTRIAL HYGIENIST.WORM PICKER Work Phone: OB/Gynecology Comment on above: Encounter [...] Bruno RN Maternal Medicine Comment on above: Lvn - O ther (Initial OB RN CC pool/) Start: 07-07-2024 End: 07-07-2024 ambulatory SHARMILA CHAUDHARI DO [facility] Start: 07-07-2024 End: 07-07-2024 Patient encounter procedure YIFAN SALMON INDUSTRIAL HYGIENIST-CNM [facility] Start: 05-26-2024 End: 05-26-2024 ambulatory SHARMILA CHAUDHARI DO [facility] Start: 05-26-2024 End: 05-26-2024 Patient encounter procedure YIFAN SALMON INDUSTRIAL HYGIENIST-CNM [facility] Start: 04-18-2024 End: 04-18-2024 ambulatory SHARMILA CHAUDHARI DO [facility] Start: 04-18-2024 End: 04-18-2024 Patient encounter procedure YIFAN SALMON INDUSTRIAL HYGIENIST-CNM [facility] Start: 07-06-2023 End: 07-06-2023 ambulatory SHARMILA CHAUDHARI DO Facility:[facility] Start: 07-06-2023 End: 07-06-2023 Patient encounter procedure SHARMILA CHAUDHARI DO [facility] Start: 04-21-2023 End: 04-21-2023 ambulatory SHARMILA CHAUDHARI DO Facility:[facility] Start: 04-21-2023 End: 04-21-2023 Patient encounter procedure SHARMILA CHAUDHARI DO [facility] Start: 03-21-2022 End: 03-21-2022 Patient encounter procedure SHARMILA CHAUDHARI DO [facility] Start: 03-20-2022 End: 03-24-2022 Outreach Lab SHARMILA CHAUDHARI DO [facility] Start: 07-27-2017 Ambulatory Sarthak Moeller Facility :[facility] Start: 04-28-2017 End: 04-28-2017 Emergency department patient visit CHRISTINA MCCALLUM Facility:[facility] Start: 04-26-2017 Ambulatory -PURVI MAROI Facility:[facility] Start: 03-01-2017 Evaluation and management of inpatient Bechara G Tabet Facility:[facility] Procedures Date Procedure Procedure Detail Performing Clinician [...] after 1st trimest 06/21 gestation Loraine Valerio INDUSTRIAL HYGIENIST.WORM PICKER Work Phone: Start: 05-26-2024 Antibody screen Lisbeth [...] RSV Vaccine (1 - 1-dose 75+ series) [facility] Start: 02-19-2025 Influenza vaccination Influenz a Vaccine (Season Ended) [facility] Start: 12-04-2024 End: 12-04-2024 Patient encounter procedure 12/04/2024 4:30 PM EDT Routine Office Visit OB/Gynecology [address] [place] [address] Sabrina Campos APRN.CNM [address] [place] [address] [facility] Comment on above: [facility] Start: 11-29-2024 End: 11-29-2024 Patient encounter procedure 11/29/2024 9:30 AM EDT Routine Office Visit OB/Gynecology [address] [place] [address] Deanna Lin APRN.CNM [address] [place] [address] OB OB/Gynecology Comment on above: OB Start: 11-20-2024 End: 11-20-2024 Patient encounter procedure 11/20/2024 1:30 PM EDT Routine Office Visit OB/Gynecology [address] [place] [address] Mattie Harman MD [address] [place] [address] OB OB/Gynecology Comment on above: OB Start: 11-08-2024 End: 11-08-2024 Patient encounter procedure 11/08/2024 1:00 PM EDT Routine Office Visit OB/Gynecology [address] [place] [address] Deanna Lin APRN.CNM [address] [place] [address] OB OB/Gynecology Comment on above: OB Start: 10-13-2024 End: 10-13-2024 Patient encounter procedure 10/13/2024 2:30 PM EDT Routine Office Visit OB/Gynecology [address] [place] [address] Lisbeth Morris MD [address] [place] [address] OB OB/Gynecology Comment on above: OB Start: 09-29-2024 End: 09-29-2024 Patient encounter procedure 09/29/2024 11:10 AM EDT Routine Office Visit OB/Gynecology [address] [place] [address] Saloni Zuniga MD [address] [place] [address] OB OB/Gynecology Comment on above: OB Start: 09-15-2024 End: 09-15-2024 Patient encounter procedure 09/15/2024 10:15 AM EDT Routine Office Visit OB/Gynecology [address] [place] [address] Sabrina Campos APRN.CNM [address] [place] [address] OB Routine OB/Gynecology Comment on above: OB Routine Start: 09-15-2024 End: 09-15-2024 ambulatory 09/15/2024 10:00 AM EDT Results Only Raymondmana Blount [facility] [address] [place] [address] Glucose test and Labs [facility] Comment on above: Glucose test and Lab s Start: 08-17-2024 End: 08-17-2024 Patient encounter procedure OB/Gynecology Comment on above: Anatomy/OB transfer care Anatomy/OB transfer care-Outside records in [place] Start: 08-17-2024 End: 11-16-2024 ANEMIA REFLEX PANEL ANEMIA REFLEX PANEL Lab Routine Encounter for supervision of normal first in second trimester 25 weeks gestation of Screening for diabetes mellitus Expected: 08/17/2024, Expires: 11/16/2024 [facility] Comment on above: Expected: 08/17/2024 , Expires: 11/16/2024 Start: 08-17-2024 End: 08-17-2025 GESTATIONAL GLUCOSE SCREEN, 1-HOUR, 50 GRAM, NON-FASTING GESTATIONAL GLUCOSE SCREEN, 1-HOUR, 50 GRAM, NON-FASTING Lab Routine Encounter for supervision of normal first in second trimester 25 weeks gestation of Screening for diabetes mellitus Expected: 08/17/2024, Expires: 08/17/2025 [facility] Work Phone: Comment on above: Expected: 08/17/2024 , Expires: 08/17/2025 Start: 08-17-2024 End: 11-16-2024 Hepatitis C virus Ab [Presence] in Serum HEPATITIS C ANTIBODY IA WITH CONFIRMATION Lab Routine Encounter for supervision of normal first in second trimester Expected: 08/17/2024, Expires: 11/16/2024 [facility] Comment on above: Expected: 08/17/2024 , Expires: 11/16/2024 Start: 08-17-2024 End: 08-17-2025 SYPHILIS TREPONEMAL W/REFLEX SYPHILIS TREPONEMAL W/REFLEX Lab Routine Encounter for supervision of normal first in second trimester 25 weeks gestation of Screening for diabetes mellitus Expected: 08/17/2024, Expires: 08/17/2025 [facility] Comment on above: Expected: 08/17/2024 , Expires: 08/17/2025 Start: 08-14-2024 End: 08-14-2024 Patient encounter procedure 08/14/2024 2:30 PM EST Routine Office Visit Maternal Medicine [address] [place] [address] Anatomy Maternal Medicine Comment on above: Anatomy Start: 07-26-2024 End: 10-25-2024 CARRIER SCREEN, STANDARD CARRIER SCREEN, STANDARD Lab Routine Encounter for supervision of normal first in second trimester 21 weeks gestation of Expected: 07/26/2024, Expires: 10/25/2024 [facility] Comment on above: Expected: 07/26/2024 , Expires: 10/25/2024 Start: 07-26-2024 End: 10-25-2024 Hemoglobin A1c in Blood HEMOGLOBIN A1C Lab Routine Encounter for supervision of normal first in second trimester Expected: 07/26/2024, Expires: 10/25/2024 [facility] Work Phone: Comment on above: Expected: 07/26/2024 , Expires: 10/25/2024 Start: 07-26-2024 End: 07-26-2025 OBSTETRIC ULTRASOUND WHI OBSTETRIC ULTRASOUND WHI Anc Imaging Routine Encounter for supervision of normal first in second trimester Expected: 07/26/2024, Expires: 07/26/2025 [facility] Comment on above: Expected: 07/26/2024 , Expires: 07/26/2025 Start: 07-26-2024 End: 07-26-2024 Patient encounter procedure 07/26/2024 1:45 PM EST Initial Office Visit OB/Gynecology [address] [place] [address] Loraine Valerio APRN.WORM PICKER [address] [place] [address] est care/expecting/last cycle early jan OB/Gynecology Comment on above: est care/expecting/l ast cycle early jan Start: 02-20-2024 Covid-19 Vaccine ( season) Covid-19 Vaccine () [facility] Start: 02-20-2024 Influenza vaccination Influenza Vacc ine (#1) [facility] Start: 04-11-2023 Urine microalbumin profile DTaP,Tdap,Td Vaccine (7 - Td or Tdap) [facility] Start: 2021 Screening for malign ant neoplasm of cervix Cervical Cancer Screening [facility] Start: 2019 Hepatitis B Vaccine (1 of 3 - 19+ 3-dose series) Hepatitis B Vaccine (1 of 3 - 19+ 3-dose series) [facility] Start: 2019 Urine microalbumin profile DTaP,Tdap,Td Vaccine (1 - Tdap) [facility] Start: 2018 Anxiety Screening Anxiety Screening [facility] Start: 2018 Depression Screening Depression Scre ening [facility] Start: 2018 Hepatitis C screening Hepatitis C Sc david [facility] Start: 2018 HIV screening HIV Screening [facility] Start: 2016 Meningococcal B Vacc ine: Consider Based On Risk (1 of 2 - Patient Seeks Protection) Meningococcal B Vaccine: Consider Based On Risk (1 of 2 - Patient Seeks Protection) [facility] Start: 2015 HPV Vaccine (1 - 3-d ose series) HPV Vaccine (1 - 3-dose series) [facility] Start: 2014 Peds To Adult Transi tion Annual Assessment Peds To Adult Transition Annual Assessment [facility] Start: 2012 Peds To Adult Transi tion Initial Discussion Peds To Adult Transition Initial Discussion [facility] Immunizations Immunization Date Immunization Notes Care Provider Fa latanya 04-21-2023 influenza, injectabl e, quadrivalent, contains preservative; Translations: [Fluarix PF Quadrivalent ] SHARMILA CHAUDHARI DO [facility] 04-21-2023 influenza virus vacc ine, unspecified formulation Loraine Teodoro MOREIRA.WORM PICKER Work Phone: [facility] 08-04-2018 influenza virus vacc ine, unspecified formulation SHARMILA CHAUDHARI DO [facility] 06-16-2016 influenza virus vacc ine, unspecified formulation SHARMILA CHAUDHARI DO [facility] 04-08-2015 hepatitis A vaccine, pediatric dosage, unspecified formulation SHARMILA CHAUDHARI DO [facility] 04-08-2015 Human Papillomavirus Quadval SHARMILA CHAUDHARI DO [facility] 04-08-2015 influenza virus vacc ine, unspecified formulation SHARMILA CHAUDHARI DO [facility] 03-07-2014 hepatitis A vaccine, pediatric dosage, unspecified formulation SHARMILA CHAUDHARI DO [facility] 03-07-2014 Human Papillomavirus Quadval SHARMILA CHAUDHARI DO [facility] 03-07-2014 influenza virus vacc ine, unspecified formulation SHARMILA CHAUDHARI DO [facility] 04-11-2013 Human Papillomavirus Quadval SHARMILA CHAUDHARI DO [facility] 04-11-2013 meningococcal polysaccharide (groups A, C, Y and W-135) diphtheria toxoid conjugate vaccine (MCV4P) SHARMILA CHAUDHARI DO [facility] [place] 04-11-2013 tetanus and diphther ia toxoids, adsorbed, preservative free, for adult use (5 Lf of tetanus toxoid and 2 Lf of diphtheria toxoid) SHARMILA CHAUDHARI DO [facility] 04-11-2013 varicella virus vaccine CANDACE CHAUDHARI DO [facility] 02-03-2005 diphtheria, tetanus toxoids and acellular pertussis vaccine SHARMILA CHAUDHARI DO [facility] 02-03-2005 measles/mumps/rubell a virus vaccine SHARMILA CHAUDHARI DO [facility] 02-03-2005 poliovirus vaccine, inactivated SHARMILA CHAUDHARI DO [facility] 03-03-2002 pneumococcal conjuga te vaccine, 13 valent SHARMILA CHAUDHARI DO [facility] 11-24-2001 diphtheria, tetanus toxoids and acellular pertussis vaccine SHARMILA CHAUDHARI DO [facility] 11-24-2001 haemophilus influenz ae type b vaccine, PRP-T conjugate SHARMILA CHAUDHARI DO [facility] 03-25-2001 measles/mumps/rubell a virus vaccine SHARMILA CHAUDHARI DO [facility] 03-22-2001 varicella virus vaccine CANDACE CHAUDHARI DO [facility] 2000 hepatitis B vaccine, unspecified formulation SHARMILA CHAUDHARI DO [facility] 2000 pneumococcal conjuga te vaccine, 13 valent SHARMILA GONCALVESY DO [facility] 2000 diphtheria, tetanus toxoids and acellular pertussis vaccine SHARMILAJEREMIAH CHAUDHARI DO [facility] 2000 poliovirus vaccine, inactivated SHARMILA FARA DO [facility] 2000 haemophilus influenz ae type b vaccine, PRP-T conjugate SHARMILA CHAUDHARI DO [facility] 2000 hepatitis B vaccine, unspecified formulation SHARMILA CHAUDHARI DO [facility] 2000 diphtheria, tetanus toxoids and acellular pertussis vaccine SHARMILA CHAUDHARI DO [facility] 2000 poliovirus vaccine, inactivated SHARMILA CHAUDHARI DO [facility] 2000 haemophilus influenz ae type b vaccine, PRP-T conjugate SHARMILA CHAUDHARI DO [facility] 2000 pneumococcal conjuga te vaccine, 13 valent SHARMILA GONCALVESY DO [facility] 2000 diphtheria, tetanus toxoids and acellular pertussis vaccine SHARMILAJEREMIAH ANDRADELAY DO [facility] 2000 poliovirus vaccine, inactivated SHARMILA FARA DO [facility] 2000 haemophilus influenz ae type b vaccine, PRP-T conjugate SHARMILA FARA DO [facility] 2000 pneumococcal conjuga te vaccine, 13 valent SHARMILA FARA DO [facility] 2000 hepatitis B vaccine, unspecified formulation SHARMILA FARA DO [facility] Payers Date Payer Category Payer Private Health Insurance [id number] 2024 Unknown [id number] 2020 Unknown [id number] 2018 Medicaid [id number] 2018 Unknown [id number] 2016 Unknown [id number] 2000 Unknown [id number] 2.16.8 [id number] 2000 Unknown [id number] 2.16.8 [id number] 2000 Unknown [id number] 2.16.8 [id number]. 2000 Unknown [id number] 2.16.8 [id number] 2000 Unknown [id number] 2.16.8 [id number]. 2000 Unknown [id number] 2.16.8 [id number] Social History Date Type Detail Facility Start: 03-20-2022 End: 07-26-2024 Tobacco smoking status Never smoked tobacco (finding) [facility] Sex Assigned At Female [facility] Start: 04-21-2023 Tobacco smoking status Heavy t obacco smoker (finding) [facility] Start: 10-20-2023 Tobacco smoking status Ex-smoker (fi nding) [facility] Sexual Orientation [facility] Start: 12-14-2018 Sex Female (finding) [facility] Tobacco smoking stat [facility] Tobacco smoking consumption unknown [facility] Start: 2000 Sex assigned at Not on file [facility] Start: 07-26-2024 End: 09-15-2024 Gender identity Not on file [facility] Start: 07-26-2024 Tobacco use and exposure Smokeless tobacco non-user [facility] Start: 07-26-2024 End: 11-29-2024 Alcoholic beverage intake Ex-drinker (finding) [facility] Start: 07-26-2024 End: 09-15-2024 History of Social function [facility] The thought of harmi ng myself has occurred to me Never [facility] National Score (1-10 0), lower number is lower risk 70 [facility] Start: 03-09-2024 [facility] The thought of harmi ng myself has occurred to me Sometimes [facility] Goals Date Patient Goal Desired Activity /State Personal health goal Clinical Notes 05-26-2024 to 11-30-2024 Quick Notes - Deanna Lin APRN.CN - 11/29/2024 9:37 AM EDTPrenatal Quick Notes - Deanna Lin APRN.[facility] - 11/29/2024 9:37 AM EDTPatient InstructionsPatient InstructionsLaboratory Note Date & Type Note Facility 11-30-2024 Note HNO ID: [id number] Author: IZABEL PRIEST MA Service: ? Author Type: Quality Auditor Type: Progress Notes Filed: 11/30/2024 08:38 Note Text: POPULATION HEALTH NAVIGATION OUTREACH Action/FYI 2nd attempt: Called and left message to call back. Reason for Outreach Medicaid OB/Peds Care Gaps due: N/A Patient Contacted: Unable or unnecessary to reach patient: Unable to reach patient Left message Navigation Signature: Izabel Berger MA November 30, 2024 8:37 AM [facility] 11-29-2024 Progress note Formatting of t his [...] timing of contractions reviewed Deanna Lin APRN.CNM [facility] 11-29-2024 Miscellaneous Notes S: Melquiades Mustafa is [...] Deanna Lin APRN.CNM documented in this encounter [facility] 11-29-2024 Instructions Mickey Figueroa MA - 11/29/2024 9:11 AM EDT SEQUENTIAL SCREENINGS The [facility] offers sequential screenings for women who are [...] It will require an appointment with our dairy technician. This is not an ultrasound performed [...] the above symptoms, contact our office at [phone] and ask to speak with a nurse. After hours, you can call doctors registry at [phone] OR call [facility] at [phone] and ask to have the doctor irrigation teacher paged. If you consider this an emergency, dial 9--1 or go to your nearest emergency department. NEED HELP? Are you dealing with a violent or abusive relationship? Are you a victim of rape or sexual assult? Call [facility] ([place]) 24 hour Crisis Hotline: 940.933.2849 or 610-171-9069. MANUAL Your Guide to a Healthy manual is now on-line. Visit [email or web address] ncyGuide to download your free copy documented in this encounter [facility] 11-28-2024 Note HNO ID: [id number] Author: IZABEL PRIEST MA Service: ? Author Type: Quality Auditor Type: Progress Notes Filed: 11/28/2024 09:43 Note Text: POPULATION HEALTH NAVIGATION OUTREACH Action/ attempt: Called and left message to call back to discuss field marketing specialist. MC message sent. Reason for Outreach Medicaid OB/Peds Care Gaps due: N/A Patient Contacted: Unable or unnecessary to reach patient: Unable to reach patient Left message mobicanvast message sent Navigation Signature: Izabel Berger MA November 28, 2024 9:43 AM [facility] 11-28-2024 History of Present illness Narrative POPULATION HEALTH NAVIGATION OUTREACH Action/ 1st attempt: Called and left message to call back to discuss field marketing specialist. MC message sent. Reason for Outreach Medicaid OB/Peds Care Gaps due: N/A Patient Contacted: Unable or unnecessary to reach patient: Unable to reach patient Left message CMP.LYhart message sent Navigation Signature: Izabel Berger MA November 28, 2024 9:43 AM documented in this encounter [facility] 11-28-2024 Note Patient Outreach (NE TNAV) MELQUIADES MUSTAFA ([id number]) 1 F Date Time Provider Department 11/28/24 IZABEL PRIEST During your visit today, we recorded the following information about you: Izabel Priest MA 11/28/2024 9:43 AM Signed POPULATION HEALTH NAVIGATION OUTREACH Action/ 1st attempt: Called and left message to call back to discuss field marketing specialist. message sent. Reason for Outreach Medicaid OB/Peds [...] 11/28/2024 Noted Resolved with care elsewhere in [facility]*07/26/2024 Encounter for supervision of normal first pregn*07/26/2024 Nausea and vomiting during [O21.9] 07/26/2024 Depression affecting [O99.340, F32.A] 07/26/2024 Heartburn during in second trimester *07/26/2024 Supervision of high risk due to socia*10/25/2024 Encounter Status:Closed by IZABEL PRIEST on 11/28/24 [facility] 11-20-2024 Progress note Formatting of t his [...] - RTO 1 wk Mattie Harman DO [facility] 11-20-2024 Miscellaneous Notes SW- Pt doing well. [...] Mattie Harman DO documented in this encounter [facility] 11-20-2024 Instructions Izabel Ambriz MA - 11/20/2024 1:22 PM EDT SEQUENTIAL SCREENINGS The [facility] offers sequential screenings for women who are [...] It will require an appointment with our dairy technician. This is not an ultrasound performed [...] the above symptoms, contact our office at [phone] and ask to speak with a nurse. After hours, you can call doctors registry at [phone] OR call [facility] at [phone] and ask to have the doctor irrigation teacher paged. If you consider this an emergency, dial 02-19-5 or go to your nearest emergency department. NEED HELP? Are you dealing with a violent or abusive relationship? Are you a victim of rape or sexual assult? Call [facility] ([place]) 24 hour Crisis Hotline: 440.687.6668 or 542-510-0878. MANUAL Your Guide to a Healthy manual is now on-line. Visit [email or web address] ncyGuide to download your free copy documented in this encounter [facility] 11-19-2024 Note . MICRO - Microbiology PROCEDURE: [...] Locations *1: This test was performed at: [facility], [address] [place] [address], [id number] , [facility] 11-15-2024 Progress note Formatting of t his [...] OB DIP B/O 37 weeks gestation of ([facility]) Kick counts and labor reviewed Orders: URINE OB DIP B/O Eliana Drake MD [facility] 11-15-2024 Miscellaneous Notes DM-Pt doing well. Denies [...] OB DIP B/O 37 weeks gestation of ([facility]) Kick counts and labor reviewed Orders: URINE OB DIP B/O Eliana Drake MD documented in this encounter [facility] 11-15-2024 Instructions Ara Perla MA - 11/15/2024 2:52 PM EDT SEQUENTIAL SCREENINGS The [facility] offers sequential screenings for women who are [...] It will require an appointment with our dairy technician. This is not an ultrasound performed [...] the above symptoms, contact our office at [phone] and ask to speak with a nurse. After hours, you can call doctors registry at [phone] OR call [facility] at [phone] and ask to have the doctor irrigation teacher paged. If you consider this an emergency, dial 9-1-4 or go to your nearest emergency department. NEED HELP? Are you dealing with a violent or abusive relationship? Are you a victim of rape or sexual assult? Call [facility] ([facility] 24 hour Crisis Hotline: 135.670.6062 or 830-231-8323. MANUAL Your Guide to a Healthy manual is now on-line. Visit [email or web address]/HealthyPregna ncyGuide to download your free copy documented in this encounter [facility] 11-01-2024 Telephone encounter Note Sw and patient discussed starting with [facility]. Sw thought it would be helpful for patient to reach out to [facility] to gather more information about adoption and learn more about the agencies that are out there to assist with adoption. Patient took down [facility] ph. [phone] address:[address] [place] [address], [address]. Patient notes that she will give them a call and will let this Sw know if she has any further needs. [facility] 11-01-2024 Miscellaneous Notes Sw and patient discussed starting with [facility]. Sw thought it would be helpful for patient to reach out to [facility] to gather more information about adoption and learn more about the agencies that are out there to assist with adoption. Patient took down [facility] ph. [phone] address:[address] [place] [address], [address]. Patient notes that she will give them [...] back to discuss care support in the [facility]. documented in this encounter [facility] 10-27-2024 Telephone encounter Note Miguel received message back from patient requesting call back. Miguel called patient back and left message for patient to return Sw call to discuss below. [facility] 10-26-2024 Telephone encounter Note Miguel received message asking Sw reach out to patient to discuss adoption service options in the area. Miguel called patient back and left message for patient to give this Sw a call back to discuss care support in the [facility] area. [facility] 10-25-2024 Progress note Formatting of t his [...] URINE OB DIP B/O Eliana Drake MD [facility] 10-25-2024 Miscellaneous Notes DM-Pt very emotional today- [...] Eliana Drake MD documented in this encounter [facility] 10-25-2024 Note Indication Evaluation of growth Discrepancy [...] 4 oz EFW by: Hadlock (HC-AC-FL) Extended Nurse Receptionist 4.9 mm Extremities / Bony Struc [place] [...] 10/25/2024 1:13 PM EDT SEQUENTIAL SCREENINGS The [facility] offers sequential screenings for women who are [...] It will require an appointment with our dairy technician. This is not an ultrasound performed [...] the above symptoms, contact our office at [phone] and ask to speak with a nurse. After hours, you can call doctors registry at [phone] OR call [facility] at [phone] and ask to have the doctor irrigation teacher paged. If you consider this an emergency, dial 9-1-1 or go to your nearest emergency department. NEED HELP? Are you dealing with a violent or abusive relationship? Are you a victim of rape or sexual assult? Call [facility] ([place]) 24 hour Crisis Hotline: 388.857.6405 or 601-243-8813. MANUAL Your Guide to a Healthy manual is now on-line. Visit [email or web address]/HealthyPregna ncyGuide to download your free copy documented in this encounter [facility] 10-19-2024 Note HNO ID: [id number] Author: HATTIE PLUNKETT LISW Service: ? Author Type: University Manager Type: Progress Notes Filed: 10/19/2024 17:34 Note Text: Summary: Integrated Mental Health Plan of Care Integrated Mental Health Plan of Care If not connected to Care are they agreeable to referral?No declined referral Patient outreached X3 with no contact Current priority status of the referral Medium Additional information Phone call, left messages x3, MC message sent, unable to reach patient. [facility] 09-29-2024 Progress note Formatting of t his [...] nontender ASSESSMENT/PLAN: 1. 31 weeks gestation of ([facility]) - ICD9: V22.2, ICD10: Z3A.31 (primary diagnosis) PTL precautions 2. Depression affecting ([facility]) - ICD9: 648.40, 311, ICD10: O99.340, F32.A stable 3. Encounter for supervision of normal first in third trimester ([facility]) - ICD9: V22.0, ICD10: Z34.03 Saloni Zuniga MD [facility] 09-29-2024 Miscellaneous Notes S: Melquiades Mustafa is a 24 year old female who presents at 11/30/2024, by Ultrasound for a routine visit. Denies headache, visual changes, chest pain, shortness of breath, vaginal bleeding, leakage of fluid, or dysuria. Feeling well, no complaints. Good movement, No contractions O: See flow sheet Gen: No apparent distress Abd: Gravid, nontender ASSESSMENT/PLAN: 1. 31 weeks gestation of ([facility]) - ICD9: V22.2, ICD10: Z3A.31 (primary diagnosis) PTL precautions 2. Depression affecting ([facility]) - ICD9: 648.40, 311, ICD10: O99.340, F32.A stable 3. Encounter for supervision of normal first in third trimester ([facility]) - ICD9: V22.0, ICD10: Z34.03 Saloni Zuniga MD documented in this encounter [facility] 09-29-2024 Instructions Danielle Good MA - 09/29/2024 11:27 AM EDT SEQUENTIAL SCREENINGS The [facility] offers sequential screenings for women who are [...] It will require an appointment with our dairy technician. This is not an ultrasound performed [...] the above symptoms, contact our office at [phone] and ask to speak with a nurse. After hours, you can call doctors registry at [phone] OR call [facility] at [phone] and ask to have the doctor irrigation teacher paged. If you consider this an emergency, dial 91-9 or go to your nearest emergency department. NEED HELP? Are you dealing with a violent or abusive relationship? Are you a victim of rape or sexual assult? Call [facility] ([place]) 24 hour Crisis Hotline: 844.309.4103 or 904-829-9681. MANUAL Your Guide to a Healthy manual is now on-line. Visit [email or web address]/HealthyPregna ncyGuide to download your free copy documented in this encounter [facility] 09-15-2024 Progress note Formatting of t his [...] Gen: No apparent distress Abd: Gravid, nontender Winchester Depression Scale Total: 25 ASSESSMENT/PLAN: 1. Encounter for supervision of normal first in third trimester -Planning [facility] for delivery and interested in waterbirth 2. 29 weeks gestation of - 1 hour GCT, CBC, and RPR today - AB positive - TDAP declines - LARC form reviewed and signed. Patient declines - Opioid screen negative - plan form discussed and given to patient. Patient desires unmedicated 3. Depression affecting -[employer] On[facility] for counseling -Consult for Women's Behavioral Health placed and open to discussing medication. PTL precautions reviewed and when to call RTO in 2 weeks Sabrina Campos APRN.CNM [facility] 09-15-2024 Note HNO ID: [id number] Author: SABRINA CAMPOS APRN.CNM Service: ? Author Type: Header Dock Type: Progress Notes Filed: 09/15/2024 18:59 Note Text: IVONNE- [facility] 09-15-2024 History of Present illness Narrative IVONNE- documented in this encounter [facility] 09-15-2024 Miscellaneous Notes IVONNE-S: Melquiades Mustafa is a 24 year old female who presents at 29w1d with YAZ:11/30/2024, by Ultrasound for a routine visit. Denies headache, visual changes, chest pain, shortness of breath, vaginal bleeding, leakage of fluid, or dysuria. Feeling well, no complaints. O: See flow sheet Gen: No apparent distress Abd: Gravid, nontender Winchester Depression Scale Total: 25 ASSESSMENT/PLAN: 1. Encounter for supervision of normal first in third trimester -Planning [facility] for delivery and interested in waterbirth 2. 29 weeks gestation of - 1 hour GCT, CBC, and RPR today - AB positive - TDAP declines - LARC form reviewed and signed. Patient declines - Opioid screen negative - plan form discussed and given to patient. Patient desires unmedicated 3. Depression affecting -[place] for counseling -Consult for Women's Behavioral Health placed and open to discussing medication. PTL precautions reviewed and when to call RTO in 2 weeks Sabrina Campos APRN.CNM documented in this encounter [facility] 09-15-2024 Instructions Sabrina Campos APRN.CNM - 09/15/2024 9:45 AM EDT Here are some links for wonderful Providers here in the community and surrounding areas. Do not hesitate to contact their offices, many are offering virtual visits during this time. 0-356-7-WVSX6YKDO - [place] Maternal Mental Health Hotline If you are in suicidal crisis, please call or text 2-676-613-TALK ( ) or visit the National Suicide Prevention Lifeline website. [facility] [www.threecrossesreg[facility].com]a.gov [facility] Psychology, Psychiatry, Counseling Connect with therapist/ can do virtual visits [phone] Referral to the [facility] for Women's Behavioral Health To schedule an appointment, please call the [facility] for Behavioral Health Appointment Line: [phone] option 1 [facility] [place], [place] [address] [place] [address] [facility] [address] [place] [address] [facility] [address] [place] [address] [facility] [address] [place], [place] [id number] Jess Blandon MD [address] [place], [place] [phone] [facility] [address], [address] [place] [address] [facility] [address] [place] [address] [facility] Services [place] / [place] [phone]/ [phone] Kristina Zambrano [address] [facility] [address] [facility] [phone] [facility] and Mediation [place] / [place] [phone] [facility] services [facility] [address] [place] [address]/ [place] [phone] Charli Augustin, MISA, [facility] [employer] [facility] Therapy Workshops, telehealth and at home visits. [phone] Humanistic counseling center 20 locations [place], [place], [place], [place], [place], [place], [place], [facility], [place], [place], [place], [place], [place], [place], [facility], [place], [place] ,[facility], [place], [place],[facility], [facility], [place], [facility], [facility], [place] www.Eversync SolutionscoTwist Bioscience.co [phone] Psychotherapy resources outside of [facility] are listed below [facility] Sabrina Messina, MOLD YARN SUPERVISOR, LOCATION MANAGER-S [phone] Revival.clientsecure.ne [address] [place] [phone] *Trauma therapy, EMDR, in person or virtual visit. Accepts some insurances. [employer] [phone] [facility] [address] [place] [address] [employer] [facility] Web: https://www.GVISP 1/ Support International Online Provider Directory https://GameGenetics/ [facility] https://YoungCracks/ [facility] Wellness Web: https://Lumiary/ [employer] for Effective Living Web: https://Gingerd/ [employer]Stance Web: https://Omegawave/location/s andres/[place]/ [facility] Web: https://Cubiez.Athletic Standard.or / [facility] Web: https://Maxta.[place] Neurosciences/ Recovery Resources Mental health and substance abuse help Web: https://www.American-Albanian Hemp CompanysChayamuni [facility] [address] [facility] [address] www.So Protect Me & RESOURCES Support International Direct peer support and connection to professional resources Non-Emergency Helpline Phone: / Text: [phone] Web: https://www..net/ Online Provider Directory: https://GameGenetics/ Online Support Meetings: https://www..net/get-he lp/dsp-ijcncz-fqplyxo-meetings/ AIDE Baby and Director Education Services Web: https://wwwAcetec Semiconductor/ MotherToBaby Expert information on medication use during and Text: [phone] Web: https://mothertobaby.org/ NATIONAL REGISTRY FOR PSYCHIATRIC MEDICATIONS Currently studying the safety of antidepressants, ADHD medications and atypical antipsychotics taken during TO PARTICIPATE CALL TOLL-FREE: Web: https://womensmentalhealth.org/re search/pregnancyregistry/ Support Groups: [facility]- Follow on facebook Baby Bistro support group led by [facility] department Resilient Mamas - Support Group [place] [facility] Health[facility].org The POEM support group [phone] Www.poemonline.org Follow on facebook - WALTER tejada Online support meetings PSI https://www..net/get-he lp/tnn-jowhag-cpsqpvs-meetings/ CC mommy and me virtual support group 11:30-1pm Support for mothers and new babies and toddlers [place] childbirth education: Childbirth @cc.org or call [phone] Support groups Online support meetings PSI https://www..net/get-he lp/qzu-iocgcr-jufgjrc-meetings/ Here are the support groups they offer: Support of parents of 1 to 4 years old children POEM ( Outreach and Encouragement for Moms) offers free support for mothers experiencing depression, anxiety, and other mood and anxiety disorders. Masks are recommended but not required. No pre-registration required. Babies in arms welcome. meetings now take place on the and Wednesday of each month Location: [facility] [address] [place] [address] Room 122 (library room) 7-8:00 p.m. When you enter the the medical center parking lot off of [address] the entrance door closest to our meeting room is on the front of the building toward the right. For those who are more comfortable with a virtual platform, POEM offers online support group options several days of the week. To register for an online group or to find out more about POEM, website at: https://SuliaaoSnipSnapo.org/get-help/mate oqpu-sidepk-pqzlop/poem-services/ offer a confidential helpline: private Facebook group is called WALTER Tejada Here are the groups they offer: Traumatic childbirth resources: Http://pattch.org/ https://www.Ideal NetworkmelvinKoemeisohailMysafeplace.Reconnex/ CRISIS: CRISIS HOTLINE [phone], 911 or go to the nearest ER. [facility] [phone] / [facility] [phone] https://www.claxton-hepburn medical centerrb.org Crisis text line text the word HOME to 115962 SIGNS AND SYMPTOMS OF LABOR 1. Contractions every 10 minutes or more often 2. Clear, pink, or brownish fluid (water) leaking from vagina 3. Feeling that baby is pushing down, pressure 4. Low, dull backache 5. Cramps that feel like a period 6. Cramps with or without diarrhea If you notice any of the above symptoms, contact our office at [phone] and ask to speak with a nurse. After hours, you can call doctors registry at [phone] OR call [facility] at [phone] and ask to have the doctor irrigation teacher paged. If you consider this an emergency, dial 9-1-1 or go to your nearest emergency department. NEED HELP? Are you dealing with a violent or abusive relationship? Are you a victim of rape or sexual assult? Call [facility] ([place]) 24 hour Crisis Hotline: 715.992.2736 or 709-707-3634. MANUAL Your Guide to a Healthy manual is now on-line. Visit mag[facility]uder hospitalinic.org/HealthyPregna ncyGuide to download your free copy documented in this encounter [facility] 08-17-2024 Progress note Formatting of t his [...] ultrasound result She is considering delivery at [facility] and possible water . Lisbeth Morris MD [facility] 08-17-2024 Miscellaneous Notes KJ - S: Melquiades [...] ultrasound result She is considering delivery at [facility] and possible water . Lisbeth Morris MD documented in this encounter [facility] 08-17-2024 Instructions Liv Dove MA - 08/17/2024 2:22 PM EST SEQUENTIAL SCREENINGS The [facility] offers sequential screenings for women who are [...] It will require an appointment with our dairy technician. This is not an ultrasound performed [...] the above symptoms, contact our office at [phone] and ask to speak with a nurse. After hours, you can call doctors registry at [phone] OR call [facility] at [phone] and ask to have the doctor irrigation teacher paged. If you consider this an emergency, dial 9-1-4 or go to your nearest emergency department. NEED HELP? Are you dealing with a violent or abusive relationship? Are you a victim of rape or sexual assult? Call [facility] ([facility] 24 hour Crisis Hotline: 529.638.2206 or 674-496-9644. MANUAL Your Guide to a Healthy manual is now on-line. Visit [facility].org/HealthyPregna orvilleyGuiamada to download your free copy documented in this encounter [facility] 07-26-2024 Instructions Loraine Valerio APRN.WORM PICKER - 07/26/2024 1:34 PM EST Images from the original note were not included. Please select the following link to access the [facility] Your Guide to a Healthy . www.Ccf.org/healthypregnancyguide Psychotherapy Services at [facility] Call Behavioral Health Access Line at [phone] to schedule Individual psychotherapy In-person or virtual Wait time for first evaluation may be 12 or more weeks. Wait list spots may be available. Due to the high volume of patients this option is recommended if you are looking for short term acute symptom coping strategies. 8-148-4-OBOJ6ZLTT - [place] Maternal Mental Health Hotline If you are in suicidal crisis, please call or text 7-994-528-TALK ( ) or visit the National Suicide Prevention Lifeline website. [facility] [www.threecrossesregional.com]a.gov If you are in crisis, call 911 or go to your nearest Emergency Department Here are some links for wonderful Providers here in the community and surrounding areas. Do not hesitate to contact their offices, many are offering virtual visits during this time. Psychotherapy Services outside of [facility] Support International Online Provider Directory https://PrivateGriffe.Reconnex/ - can assist in finding providers in your area that might be more extensive then the list below. [facility] [place], [place] [address] [place] [address] [facility] [address] [place] [address] [facility] [address] [place] [address] [facility] [address] [place] [address] Jess Blandon MD [address] [place] [address] [facility] [address] [facility], [address] [place] [address] [facility] Psychiatric Services [address] [place] [address] [facility] Counseling Services [place] / Qu[place] [phone]/ [phone] Kristina Zambrano [address] [facility] [phone] Aves of Counseling and Mediation [place] / Dave [phone] Behavioral [facility] services [facility] [address] [place] [address]/ [place] [phone] Charli Augustin, MISA, CLC Bu and Beyond Family Therapy Workshops, telehealth and at home visits. [phone] Humanistic counseling center 20 locations [place], [place], [place], [place], [place], [place], [place], [place] hts, [place], [place], [place], [place], [place], [place], [facility], [place], [place] ,[facility], [place], [place],[facility], [place], [place], [facility] hts, [place], [place] www.[facility] [phone] Psychotherapy resources outside of [facility] are listed below [facility] Web: https://www.GVISP 1/ Support International Online Provider Directory https://GameGenetics/ Insight Counseling https://YoungCracks/ Foodyn for Behavioral Health and Wellness Web: https://Lumiary/ AboutUs.org Effective Living Web: https://Gingerd/ LifeStance Web: https://ClearCare.Reconnex/location/s andres/[place]/ Signature Health Web: https://www.Scalable Display Technologiespinon health center.or / [facility] Illumio Web: https://Maxta.[place] Neurosciences/ Recovery Resources Mental health and substance abuse help Web: https://www.American-Albanian Hemp Companys.[place] Neurosciences & RESOURCES Support International Direct peer support and connection to professional resources Non-Emergency Helpline Phone: / Text: [phone] Web: https://www..net/ Online Provider Directory: https://GameGenetics/ Online Support Meetings: https://www..net/get-he lp/voa-xsixcj-jgntrjx-meetings/ AIDE Baby and Director Education Services Web: https://www.DermApproved/ MotherToBaby Expert information on medication use during and Text: [phone] Web: https://mothertobaby.org/ NATIONAL REGISTRY FOR PSYCHIATRIC MEDICATIONS Currently studying the safety of antidepressants, ADHD medications and atypical antipsychotics taken during TO PARTICIPATE CALL TOLL-FREE: Web: https://womenrenown urgent carehealth.org/re search/pregnancyregistry/ Support Groups: [facility]- Follow on facebook Baby Bistro support group led by [facility] department Resilient Mamas - Support Group [facility].org The POEM support group [phone] Www.poemonline.org Follow on facebook - WALTER tejada Online support meetings PSI https://www..net/get-he lp/rwv-dpqohi-zkkyyoy-meetings/ [facility] mommy and me virtual support group 11:30-1pm Support for mothers and new babies and toddlers [place] childbirth education: Childbirth @[facility].org or call [phone] CRISIS: CRISIS HOTLINE [phone], 911 or go to the nearest . [facility] [phone] / [facility] [phone] https://www.[facility].org Crisis text line text the word HOME to 629088 [facility] [address] [facility] [address] www.So Protect Me Ai Mayen clinical counseling [address] [address] www.BeLocalriDeck Works.co.Reconnex [phone] Holding space psychotherapy Jigna Lion MOLD YARN SUPERVISOR LOCATION MANAGER-S [address] [facility] www.ScribeStorm [phone]/ Jill [phone] They all offer virtual. All work with trauma Support groups Online support meetings PSI https://www..net/get-he lp/ymr-vdfsub-jzvfxsg-meetings/ Here are the support groups they offer: [...] Wednesday of each month Location: [facility] [address] [place] [address] Room 122 (library room) 7-8:00 p.m. When you enter the the medical center parking lot off of [address] the entrance door closest to our meeting room is on the front of the building toward the right. For those who are more comfortable with a virtual platform, PO offers online support group options several days of the week. To register for an online group or to find out more about POEM, website at: https://Suliaaohio.org/get-help/genesee hospitalodcu-dxgddy-qsbvcm/poem-services/ offer a confidential helpline: private Facebook group is called WALTER Tejada Here are the groups they offer: Traumatic childbirth resources: Http://pattch.org/ https://www.jaxonMysafeplace.Reconnex/ Name Location (s) Phone # (s) Services Website [facility]otherapy [address] [place], [place] - [phone]; [address] [phone] In-Person GROUPS INDIVIDUAL THERAPY MATERNAL- MENTAL HEALTH MEDICATION MANAGEMENT PLAY AND ART THERAPY TELETHERAPY https://www.GVISP 1/s ervices/ [facility] [place] YULIET? [address] [place], [place] [address] ? [address], [address] [place], [place] [address] ? ASHAWAY [address] [place] [phone]? Grief Support Groups Individual Grief Counseling Spiritual Care [facility] https://yuliet.[facility].org/grief-services [facility] [address] [place], [place] [address]; ; Email: [email or web address] Women's Mental Health; Couples Counseling; Trauma (EMDR); Stress Management; Mood and Anxiety Related Disorders- and much more https://www.GridCure/ LifeStance Numerous as they have contract providers: access website to find specific providers near you Counseling including CBT and EMDR as well as many more modalities; Medication Management; Telehealth and In-Person https://ClearCare.Reconnex/ eGood [facility]al [facility] [address] [place], [place] [address]; [phone] Personal, Family and Group Therapy; Psychological Testing and Diagnosis; Medication Management; Life and Career Coaching; Psychoanalysis; Literacy Testing; Yoga and Meditation https://Lumiary/ [facility] [address] [facility] [address], [place] [address] [address] ; [facility] [place], [address] [place] [address]; Office # for both sites: Individual and Couples Counseling https://www.Audience.fm.Reconnex/ paymentinsurance.html OCD & Anxiety [facility] [address] [facility], [address], [place] [address]; Specialize in Cognitive-Behavioral Therapy (CBT) for the treatment of anxiety disorders across the lifespan. TELEHEALTH ONLY. https://ocdandanxietycenteroCatapoooltv Barosense/faqs [facility] [address] [facility] [address]th [place], [address] [place] [address] [facility] [place], [address] [place] [address] [place] [address] [place] [address] [facility] [place], [address], [id number] [place] [address] [facility] [place], [address] [place] [address] [place], [place], [id number] Transportation Services To minimize patient barriers, [facility] provides transportation services to patients who [...] assistance Substance abuse treatment Medication assisted treatment https://www.[facility].or g/mental-health/ [facility] OFFICE AT [facility] [address] [place] [address] [facility] OFFICE [address] [place] [address] [facility] OFFICE [address] [place] [address] [facility] (at [facility]) [address] [place] [address] [facility] S[place] EXCHANGE PROGRAM & HIV SCREENING [address] [place] [address] [facility] EXCHANGE PROGRAM [address] [place] [address] Behavioral Health Urgent Care: [facility] Counseling Indvidual and Group Medication Management Case Management benefits applications housing assistance Substance abuse treatment Medication assisted treatment Employment Services/ Job Training https://theHeadroom.org/ Recovery Resources [address] [place], [place] [address]: P: [phone] [address] [facility], [address] [place], [place] [address] P: [phone] Our services include: Addiction Mental Health Treatment Assessment Psychiatry Medical Care Employment Housing Drug and Alcohol Prevention HIV/AIDS Prevention https://www.recres.org/ [facility] [place] [address] [facility] [address] [place] [address] [place] [address] [place], [place] [address]bianca.[address] [place], [place] [address] [place] [address] [place] [address] [place] [address] [facility] [address] [place] [address] [place] [address] [place] [address] TMS Therapy/ Counseling Psychocological Testing for ADHD Medication Management In-Person/ Telemedicine https://www.Entrustet.Reconnex/precious ents-depression Memory & Psychological services [address], [place] [address] Neuropsychological Testing For ADHD https://www.memoryandpsych.com/ [facility] - Main Office [address] [place] [address] [address] Providing ctpo-sn-mxjg and telehealth services. Adult Case Management Community Education and Prevention Employment Outpatient Treatment - Counseling & Psychotherapy Psychiatric Services http://www.[facility].org/ [facility] [place] [address] [place] [address] Ariella [facility] [address] [place] [address] Virtual Appointments! Now offering safe and convenient virtual client appointments to anyone in [place]! Individual Therapy Couples/Relationship Therapy Trauma/EMDR Therapy Art Therapy Play Therapy Business Liaison Officer Support: Parenting Skills, Parent Child Interaction Therapy, Parent Interaction Therapy Meditation Dietitian/Baker Second Services Group Therapy Yoga https://www.Kinamik Data Integrity. Reconnex/ Tri Holliday [phone] Private Practice: Telehealth Only Specializes in EMDR for Trauma None documented in this encounter [facility] 07-26-2024 Note HNO ID: [id number] Author: LORAINE VALERIO APRN.CNP Service: ? Author Type: Nurse Practitioner Type: Progress Notes Filed: 07/26/2024 14:23 Note Text: Medical Appointment Scheduler offered: Patient declines. INITIAL OB ASSESSMENT HPI: [...] harming myself has occurred to me. 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 No pertinent past medical history. History reviewed. No pertinent surgical history. Current Outpatient Medications Medication Sig Dispense Refill PNV no.95/ferrous fum/folic ac ( ORAL) Take by mouth. [id number] ACID ORAL Take by mouth. (more content not included)... [facility] 07-26-2024 History of Present illness Narrative Images from the original note were not included. Medical Appointment Scheduler offered: Patient declines. INITIAL OB ASSESSMENT HPI: [...] harming myself has occurred to me. 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 No pertinent past medical history. History reviewed. No pertinent surgical history. Current Outpatient Medications Medication Sig Dispense Refill PNV no.95/ferrous fum/folic ac ( ORAL) Take by mouth. [id number] ACID ORAL Take by mouth. No current [...] to rescreen early third trimester. Loraine Valerio APRN.WORM PICKER ASSESSMENT: 24 year old at Unknown wks gestational age PLAN: 1) Patient oriented to practice. Patient given new OB orientation folder. Discussed nutrition, folic acid supplementation, dietary guidelines, exercise, smoking, alcohol, caffeine, and drug use. Discussed gestational weight gain guidelines. Discussed routine OB labs including STD/HIV. Discussed how to access Your guide to a health and the Blind Hanger. Discussed hemoglobin electrophoresis. Patient: Declines Reviewed midwifery and jboss architect services that are available. 2) Screening: Hemoglobin [...] (28-30 weeks): [] Consent [] Contraception [] Tool Crib Attendant [] TeamBirth handout Third trimester (36-40 weeks): [] GBS [] Presentation - [] Scheduled [] yes - Hibiclens, pre-op instructions, CBC, T&S ordered [] no [] H&P [] Preferences worksheet [] Scanned in EMR With Care Elsewhere in Second Trimester - 07/26/2024 Comment: July 26, 2024 Transferring from [place]. To sign records release. Loraine Valerio APRN.WORM PICKER Nausea and Vomiting During - 07/26/2024 Comment: [...] Loraine Valerio APRN.CNP documented in this encounter [facility] 07-19-2024 Telephone encounter Note Spoke to patient. She already has an appt. Closing encounter. [facility] 07-19-2024 Miscellaneous Notes Spoke to patient. She [...] to: self Call patient at: at home [phone] (home) Payor: [place] Quad/Graphics PLAN / Plan: [place] [facility] CHOICE PLAN GENERIC / Product Type: PPO / Tesha Roach documented in this encounter [facility] 07-19-2024 Telephone encounter Note Additional attempt made to speak to patient. No answer, LMTCB if patient still desires an appt. [facility] 07-17-2024 Telephone encounter Note Call placed to patient to triage for new OB appt. No answer, LMTCB. [facility] 07-17-2024 Telephone encounter Note ----- Message from [...] to: self Call patient at: at home [phone] (home) Payor: Preferred Commerce PLAN / Plan: [place] [facility] CHOICE PLAN GENERIC / Product Type: PPO / Tesha Roach [facility] 05-26-2024 Evaluation + Plan note Diagnostic Tests PendingPrenatal Panel (AO) 05/26/24Varicella Zoster Antibody 05/26/24 [facility] Evaluation + Plan note Future Appointments Appointment Date:04/21/2022 08:30:00 AM Scheduled Provider:SHARMILA CHAUDHARI DO Location:[facility] Appointment Type: Wellness Annual Diagnostic Tests PendingChlamydia trachomatis PCR 03/21/22N. gonorrhoeae PCR 03/21/22 Future Scheduled TestsPathology Trains Service Conductor Request 03/20/22Chlamydia trachomatis PCR 03/20/22N. gonorrhoeae PCR 03/20/22Thyroid Stimulating Hormone 03/20/22Lipid Profile 03/20/22Complete Metabolic Panel 03/20/22 [facility] Evaluation + Plan note Future Appointments Appointment Date:04/21/2022 08:30:00 AM Scheduled Provider:SHARMILA CHAUDHARI DO Location:[facility] Appointment Type: Wellness Annual Diagnostic Tests PendingN. gonorrhoeae PCR 03/20/22 Future Scheduled TestsPathology Trains Service Conductor Request 03/20/22Thyroid Stimulating Hormone 03/20/22Lipid Profile 03/20/22Complete Metabolic Panel 03/20/22 [facility] Evaluation + Plan note Future Appointments Appointment Date:06/25/2023 03:00:00 PM Scheduled Provider:SHARMILA CHAUDHARI DO Location:[facility] Appointment Type:[facility] Evaluation + Plan note Future Appointments Appointment Date:07/07/2023 12:00:00 PM Scheduled Provider:SHARMILA CHAUDHARI DO Location:[facility] Appointment Type:[facility] Evaluation note Diagnosis Encounter for supervision of [...] in second trimester [facility] Diagnosis Encounter for anatomic survey- Primary 24 weeks gestation of state, incidental [facility] Diagnosis Encounter for supervision of normal [...] WITH CONFIRMATION; Future documented in this encounter [facility] note* Diagnosis Encounter for supervision of normal first in second trimester (HCC)- Primary Supervision of normal first 25 weeks gestation of ([facility]) state, incidental Screening for diabetes mellitus Encounter for supervision of normal first in third trimester ([facility])- Primary Supervision of normal first 29 weeks gestation of ([facility]) state, incidental Depression affecting ([facility]) documented in this encounter [facility] note* Diagnosis Encounter for supervision of normal first in second trimester ([facility])- Primary Supervision of normal first 25 weeks gestation of ([facility]) state, incidental Screening for diabetes mellitus 31 weeks gestation of ([facility])- Primary state, incidental Depression affecting ([facility]) Encounter for supervision of normal first in third trimester ([facility]) Supervision of normal first documented in this encounter [facility] [facility] note* Diagnosis Encounter for supervision of normal first in second trimester ([facility])- Primary Supervision of normal first 25 weeks gestation of ([facility]) state, incidental Screening for diabetes mellitus Encounter for ultrasound to check growth ([facility])- Primary Encounter for routine screening for malformation using ultrasonics Uterine size-date discrepancy, third trimester ([facility]) 34 weeks gestation of ([facility]) state, incidental Supervision of high risk due to social problems, third trimester ([facility])- Primary Uterine size-date discrepancy, third trimester ([facility]) 34 weeks gestation of ([facility]) state, incidental documented in this encounter [facility] note* Diagnosis Encounter for supervision of normal first in second trimester ([facility])- Primary Supervision of normal first 25 weeks [...] OB DIP B/O [facility] Diagnosis Encounter for supervision of normal first in second trimester (HCC)- Primary Supervision of normal first 25 weeks gestation of (HCC) state, incidental Screening for diabetes mellitus Supervision of high risk due to social problems, third trimester (HCC)- Primary Uterine size-date discrepancy, third trimester (HCC) 34 weeks gestation of ([facility]) state, incidental Supervision of high risk due to social problems, third trimester (HCC)- Primary Depression affecting (HCC) Uterine size-date discrepancy, third trimester (HCC) 37 weeks gestation of ([facility]) state, incidental * Assessment & Plan Note [...] OB DIP B/O [facility] Diagnosis Encounter for supervision of normal [...] Depression affecting (HCC) documented in this encounter [facility] note* Diagnosis Encounter for supervision of [...] Positive GBS test documented in this encounter [facility] course Narrative No data available for this section [facility] Hospital Discharge instructions No data available for this section [facility] Progress note No data available for this section [facility] Reason for referral (narrative)* Diagnostic Procedure Only (Routine) - Pending Review Specialty Diagnoses / Procedures Referred By Marichuy marx Referred To Contact [facility] Diagnoses Encounter for supervision of normal first in second trimester Procedures OBSTETRIC ULTRASOUND WHI US PREG UTERUS AFTER 1ST TRIMEST GESTATION Loraine Valerio APRN.CNP [address] [place] [address] [facility] [place] [address] [place] [address] Referral ID Status Reason Start Date Expiration Date Visits Requested Visits Authorized [id number] Pending Review Auto-Generat ed Referral 07/26/2024 07/26/2025 1 1 [facility] Summary Purpose Family History No Family [...] section and content) DATE CREATED AUTHOR 12/13/2017 [facility] Josie hurtado [place] DATE CREATED AUTHOR AUTHOR'S ORGANIZ ATION 12/14/2017 Counts Include 234 B[facility] DATE CREATED AUTHOR AUTHOR'S ORGANIZ ATION 02/27/2022 [facility] DATE CREATED AUTHOR AUTHOR'S ORGANIZ ATION 12/11/[address] [facility] ([place]) DATE CREATED AUTHOR AUTHOR'S ORGANIZ ATION 11/22/2024 [facility] DATE CREATED AUTHOR AUTHOR'S ORGANIZ ATION 12/02/2024 [facility] Care Team (unrecognized sect ion and content) Care Team Personnel Name: SHARMILA CHAUDHARI DO Position: P4 Physician - Primary Care Med Service: Active Provider Member Role: Primary Care Physician Address: Address: [address] [place] [phone] [place] Care Team Related Persons Name: AGUSTINLASHELLE Address: Home [address] [place], [place] [id number] [place] Name: AGUSTIN, ZOHREH Address: Home [address] [place] [phone] [place] Name: AGUSTINZOHREH Address: Home [address] [place] [phone] [place] Name: ZOHREH VELEZ Care Team Personnel Name: SHARMILA CHAUDHARI DO Position: P4 Physician - Primary Care Med Service: Active Provider Member Role: Primary Care Physician Address: Address: [address] [place] [phone]- Care Team Related Persons Name: ZOHREH VELEZ Address: Home [address] [place] [phone] [place] Name: AGUSTINZOHREH HODGE Address: Home [address] [place] [phone] [place] Name: ZOHREH VELEZ Name: ZOHREH VELEZ Address: Home [address] [place], [place] [phone] [place] Patient Care team informatio n (unrecognized section and content) Care Team Personnel Name: SHARMILA CHAUDHARI DO Position: P4 Physician - Primary Care Member Role: Primary Care Physician Address: Address: [address] [place] [phone]- [place] Care Team Related Persons Name: ZOHREH VELEZ Address: Home [address] [place] [phone] [place] Care Team Personnel Name: SHARMILA CHAUDHARI DO Position: P4 Physician - Primary Care Member Role: Primary Care Physician Address: Address: [address] [place] [phone]- Care Team Related Persons Name: ZOHREH VELEZ Address: Home [address] [place] [phone] [place] Care Team Personnel Name: SHARIMLA CHAUDHARI DO Position: P4 Physician - Primary Care Member Role: Primary Care Physician Address: Address: [address] [place] [id number] Care Team Related Persons Name: ZOHREH VELEZ Address: Home [address] [place] [phone] Care Team Personnel Name: SHARMILA CHAUDHARI DO Position: P4 Physician - Primary Care Member Role: Primary Care Physician Address: Address: [address] [place] [id number] Care Team Related Persons Name: ZOHREH VELEZ Address: Home [address] [place] [phone] Care Team Personnel Name: SHARMILA CHAUDHARI DO Position: P4 Physician - Primary Care Member Role: Primary Care Physician Address: [address] Telecom: Care Team Related Persons Name: ZOHREH VELEZ Source Comments (unrecognize d section and content) In the event this informatio n is protected by the Federal Confidentiality of Alcohol and Drug Abuse Patient Records regulations: The Federal rules restrict any use of the information to criminally investigate or prosecute any alcohol or drug abuse patient.[facility] the event this information is protected by the Federal Confidentiality of Alcohol and Drug Abuse Patient Records regulations: The Federal rules restrict any use of the information to criminally investigate or prosecute any alcohol or drug abuse patient.[facility] the event this information is protected by the Federal Confidentiality of Alcohol and Drug Abuse Patient Records regulations: The Federal rules restrict any use of the information to criminally investigate or prosecute any alcohol or drug abuse patient.[facility] the event this information is protected by the Federal Confidentiality of Alcohol and Drug Abuse Patient Records regulations: The Federal rules restrict any use of the information to criminally investigate or prosecute any alcohol or drug abuse patient.[facility] the event this information is protected by the Federal Confidentiality of Alcohol and Drug Abuse Patient Records regulations: The Federal rules restrict any use of the information to criminally investigate or prosecute any alcohol or drug abuse patient.[facility] the event this information is protected by the Federal Confidentiality of Alcohol and Drug Abuse Patient Records regulations: The Federal rules restrict any use of the information to criminally investigate or prosecute any alcohol or drug abuse patient.[facility] the event this information is protected by the Federal Confidentiality of Alcohol and Drug Abuse Patient Records regulations: The Federal rules restrict any use of the information to criminally investigate or prosecute any alcohol or drug abuse patient.[facility] the event this information is protected by the Federal Confidentiality of Alcohol and Drug Abuse Patient Records regulations: The Federal rules restrict any use of the information to criminally investigate or prosecute any alcohol or drug abuse patient.[facility] the event this information is protected by the Federal Confidentiality of Alcohol and Drug Abuse Patient Records regulations: The Federal rules restrict any use of the information to criminally investigate or prosecute any alcohol or drug abuse patient.[facility] the event this information is protected by [...] or prosecute any alcohol or drug abuse patient.[facility] the event this information is protected by the Federal Confidentiality of Alcohol and Drug Abuse Patient Records regulations: The Federal rules restrict any use of the information to criminally investigate or prosecute any alcohol or drug abuse patient.[facility] the event this information is protected by the Federal Confidentiality of Alcohol and Drug Abuse Patient Records regulations: The Federal rules restrict any use of the information to criminally investigate or prosecute any alcohol or drug abuse patient.[facility] the event this information is protected by the Federal Confidentiality of Alcohol and Drug Abuse Patient Records regulations: The Federal rules restrict any use of the information to criminally investigate or prosecute any alcohol or drug abuse patient.[facility] Reason for Visit (unrecogniz ed section and content) Reason Comments Lvn - Other Initial OB RN Lyndon macias Reason Comments Initial OB Visit Reason Comments [place] Specialty Diagnoses / Procedures Referred By Marichuy t Referred To Contact [facility] Diagnoses Encounter for supervision of normal first in second trimester Procedures OBSTETRIC ULTRASOUND WHI US PREG UTERUS AFTER 1ST TRIMEST GESTATION Loraine Valerio APRN.[employer] P[employer]ER [address] [place] [address] Phone: tel: fax: [facility] [address] [place], [place] [address] [address] Referral ID Status Reason Start Date Expiration Date V isits Requested Visits Authorized [id number] Closed Auto-Generate d Referral 07/31/2024 06/20/2025 1 1 Reason Onset Date Comments Care 08/17/2024 Reason Onset Date Comments Care 09/15/2024 Reason Onset Date Comments Care 09/29/2024 Specialty Diagnoses / Procedures Referred By Contac t Referred To Contact [facility] Diagnoses 33 weeks gestation of (HCC) Uterine size-date discrepancy, third trimester (HCC) Procedures OBSTETRIC ULTRASOUND WHI US PREG UTERUS AFTER 1ST TRIMEST GESTATION Lisbeth Morris MD [address] [place] [address] Phone: tel: fax: [facility] [address] [address] [place] [address] Referral ID Status Reason Start Date Expiration Date Visits Requested Visits Authorized [id number] Authorized Auto-Generat ed Referral 10/13/2024 06/20/2025 20 [...] BE BASED ON THE PRIMARY CLINICAL RECORDS. [facility]. provides no warranty or guarantee of the accuracy or completeness of information in this document.
[2024-12-04] MEDS: Penicillin G Pot 5,000,000 UNITS in 0.9% Normal Saline (100mL MB+) 100 ML 150 UNITS IV (03:18)
[2024-12-04] MEDS: Lactated Ringers 1,000 ML 50 ML IV (03:19)
[2024-12-04 03:32] LABS: Absolute Lymphocyte Count 1.86 X10^3/uL (0.83-4.51); Absolute Neutrophil Count 15.6 X10^3/uL (2.0-7.7); Basophil# 0.04 X10^3/uL; Basophil% 0.2 % (0-1); Eosinophil# 0.03 X10^3/uL; Eosinophils% 0.2 % (0-5); Hematocrit 35.4 % (37-47); Hemoglobin 12.1 g/dL (12.0-15.0); Lymphocyte # 1.86 X10^3/ul (0.83-4.51); Lymphocyte % 10.1 % (19-41); Mean Corp Hgb Conc 34.2 g/dL (32-36); Mean Corpuscular Hgb 31.5 pg (27.0-32.0); Mean Corpuscular Volume 92.2 fL (81-99); Mean Platelet Vol. 11.3 fl (6.2-12.0); Monocyte% 4.3 % (0-10); NRBC Flagged by Analyzer 0 % (0-5); Neutrophil # 15.58 X10^3/uL (2.7-7.7); Neutrophil % 84.7 % (47-70); Platelet Count 274 K/mm3 (150-450); RBC Distribution Width CV 12.7 % (11.6-14.6); Red Blood Count 3.84 M/mm3 (4.2-5.4); White Blood Count 18.4 K/mm3 (4.4-11.0)
[2024-12-04 04:18] LABS: Syphilis Antibodies Nonreactive (Nonreactive)
[2024-12-04] MEDS: Mag Hydrox/Al Hydrox/Simeth 30 ML UDC PO (06:53)
[2024-12-04] MEDS: Penicillin G 3,000,000 Units 50 ML 100 UNITS IV (08:15)
[2024-12-04] MEDS: 0.9% Saline Lock 10 ML Syringe IV (08:18)
--- NOTE | 2024-12-04 08:36 | HP.PCM.OB_ITS ---
HPI - General General Date of Admission: 12/04/24 Date of Service: 12/04/24 Chief Complaint: contractions HPI Narrative MELQUIADES MUSTAFA, is a 24 F who presents contractions [facility] Medical History (Updated 12/04/24 @ 08:[address] Isabela Hamran, DO) Asthma Depression Anxiety COVID-19 Home Medications ?Medication ?Instructions ?Recorded ?Last Taken ?Type famotidine 20 mg tablet (Pepcid) 20 mg PO DAILY acid r eflux 12/04/24 12/03/24 02:30 History Allergy/AdvReac Type Severity Reaction Status Date / Time No Known Allergies Allergy Verified 12/04/24 03:10 Social History Smoking Status: Never smoker History Elective abortions Hx Para 0 Spontaneous abortions Hx # Term Pregnancies Ectopic pregnancies Hx # Pregnancies Multiple births # of living children Vital Signs Vital Signs Vital Signs: 12/03/24 23:14 12/03/24 23:14 12/03/24 23:19 Temperature Temperature Source Pulse Rate 81 Respiratory Rate Blood Pressure 115/76 BP Systolic 115 BP Diastolic 76 Pulse Ox 98 12/03/24 23:19 12/03/24 23:19 12/03/24 23:19 Temperature Temperature Source Temporal Pulse Rate 65 Respiratory Rate 18 Blood Pressure BP Systolic BP Diastolic Pulse Ox 12/03/24 23:19 12/04/24 04:00 12/04/24 04:31 Temperature 97.7 F L Temperature Source Pulse Rate 76 80 Respiratory Rate Blood Pressure BP Systolic BP Diastolic Pulse Ox 12/04/24 05:01 12/04/24 05:26 12/04/24 05:26 Temperature Temperature Source Temporal Pulse Rate 71 82 Respiratory Rate Blood Pressure BP Systolic BP Diastolic Pulse Ox 12/04/24 05:26 12/04/24 05:26 12/04/24 05:26 Temperature 97.2 F L Temperature Source Pulse Rate Respiratory Rate 16 Blood Pressure BP Systolic BP Diastolic Pulse Ox 99 12/04/24 05:31 12/04/24 05:36 12/04/24 05:36 Temperature Temperature Source Pulse Rate 82 84 Respiratory Rate Blood Pressure 114/77 BP Systolic 114 BP Diastolic 77 Pulse Ox 12/04/24 05:36 12/04/24 06:01 12/04/24 06:34 Temperature Temperature Source Pulse Rate 80 77 Respiratory Rate Blood Pressure BP Systolic BP Diastolic Pulse Ox 99 12/04/24 06:59 12/04/24 07:30 12/04/24 07:52 Temperature Temperature Source Pulse Rate 80 60 60 Respiratory Rate Blood Pressure BP Systolic BP Diastolic Pulse Ox 12/04/24 07:52 12/04/24 08:06 12/04/24 08:06 Temperature Temperature Source Pulse Rate 64 Respiratory Rate 20 H 20 H Blood Pressure BP Systolic BP Diastolic Pulse Ox 12/04/24 08:20 12/04/24 08:20 12/04/24 08:25 Temperature Temperature Source Pulse Rate 64 60 Respiratory Rate 20 H Blood Pressure BP Systolic BP Diastolic Pulse Ox 12/04/24 08:25 Temperature Temperature Source Pulse Rate Respiratory Rate 20 H Blood Pressure BP Systolic BP Diastolic Pulse Ox Weight Weight: 148 lb 9.6 oz Body Mass Index (BMI) 24.7 Physical Exam Const alert Constitutional Narrative: uncomfortable with ctx's Labs Labs Labs: Blood Type AB POSITIVE Antibody Screen NEGATIVE Hct 35.4 % (37-47) L Hgb 12.1 g/dL (12.0-15.0) Syphilis Total Ab Nonreactive (Nonreactive) Assessment & Plan (1) 40 weeks gestation of : (2) Uterine contractions: PLAN: Admitted and initially managed by Sabrina Campos CNM. DOM for GBS prophylaxis. Plans unmedicated . Cvx /0 and AROM performed for clear fluid. Pelvis adequate and EFW < 4500 grams. (3) Depression affecting : (4) Supervision of high risk due to social problems: PLAN: Protection order against FOB (5) Positive GBS test: PLAN: PCN
[2024-12-04] MEDS: Oxytocin 15 Units/NS 250ml 15 UNITS/250 ML IV.SOLN 334 UNITS IV (09:41)
[2024-12-04] MEDS: Oxytocin 15 Units/NS 250ml 15 UNITS/250 ML IV.SOLN 83 UNITS IV (10:26)
[2024-12-04] MEDS: Hydrocortisone 2.5% Crm 1 APPLIC TOPICAL (12:11)
[2024-12-04] MEDS: Ibuprofen 600 MG Tablet PO ×2 (12:11→19:36)
[2024-12-04] MEDS: Dibucaine 30 GM Tube 1 APPLIC TOPICAL (12:12)
--- NOTE | 2024-12-04 12:38 | OB.VAGDELI_ITS ---
Assessment & Plan (1) First degree perineal laceration: (2) Obstetric labial laceration, delivered, current hospitalization: (3) Vaginal delivery: (4) Positive GBS test: (5) Supervision of high risk due to social problems: (6) Depression affecting : (7) Uterine contractions: (8) 40 weeks gestation of : Vaginal Delivery Maternal Presentation Maternal Presentation: Active Labor Vaginal Delivery Information Procedure Performed: Spontaneous Vaginal Delivery Surgeon/Practitioner: Isabela Harman Date of Procedure: 12/04/24 Pre-Procedure Diagnosis: 40 week gestation, spontaneous labor Post-Procedure Diagnosis: As above Type of anesthesia: Local with 1% Lidocaine (for repair) Estimated Blood Loss: 100 mL Findings Description of procedure: The patient was completed and pushing. The head of the infant delivered in JEISON position, followed by the shoulders and body without any traction, force or delay. A vigorous VFI was placed on maternal abdomen. The cord was clamped and cut after it was done pulsating per patient request. Pitocin was initiated. The placenta delivered spontaneously, and was noted to be normal appearing and intact with 3 VC. Fundus firm and bleeding minimal. Local was infiltrated for the repair. 3-0 Vicryl was used to repair the first degree vaginal laceration in usual fashion. Bilateral labial lacerations were noted to be bleeding despite pressure. 3-0 Vicryl was used to repair the lacerations to achieve hemostasis using a running baseball stitch. A 2 cm hematoma was noted over the left labia minor, which was smaller after pressure. A vaginal sweep was performed. Sponge and needle counts were correct. Procedure findings: Vigorous VFI. 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
[2024-12-04] MEDS: Acetaminophen 500 MG Tablet 1000 MG PO (14:40)
[2024-12-05] VITALS (8 sets, daily range): BP systolic 100–111; BP diastolic 63–69; PULSE 65–94; RESP 14–16; TEMP 36.3–36.4; O2SAT 97–98
--- NOTE | 2024-12-05 10:16 | PCM.PN.BLA ---
Progress Note pain well controlled, average lochia, working on Assessment & Plan Assessment/Plan (1) Vaginal delivery: (2) First degree perineal laceration: PLAN: Plan PP#1 routine care likely d/c home later today if ok w/ peds
--- NOTE | 2024-12-05 12:09 | PCM.DC.SUM ---
Providers Date of Admission: 12/04/24 Date of Discharge: 12/05/24 Primary Care Physician: No Primary Care Phys Reason For Visit: VAGINAL DELIVERY Diagnosis Discharge Diagnosis (1) Vaginal delivery: Status: Acute Code(s): O80 - Encounter for full-term uncomplicated delivery (2) First degree perineal laceration: Status: Acute Code(s): O70.0 - First degree perineal laceration during delivery Plan PP#1 routine care likely d/c home later today if ok w/ peds Medications at Discharge Home Medications famotidine 20 mg tablet (Pepcid) 20 mg PO DAILY acid reflux 12/04/24 acetaminophen 500 mg tablet (Acetaminophen Extra Strength) 1,000 mg (2 x 500 mg) PO Q6H PRN fever or pain 20 days #60 tabs 12/05/24 ibuprofen 600 mg tablet 600 mg PO Q6H PRN Pain 20 days #60 TABLETS 12/05/24 Hospital Course Operations None Procedures None Summary of Care Provided Minutes Spent on Discharge: 16 Hospital Course: Patient amitted 12/04 at 40 weeks gestation in labor. Had a with first degree lac on 12/04 and desired d/c home on 12/05 with routine instructions. F/u in 1 and 6 weeks or prn. Weight / BMI Weight Weight: 67.404 kg Body Mass Index (BMI) 24.7 ABG / Lab / Microbiology Data 12/04/24 03:15 D/C Instructions Discharge Diet: No restrictions May resume sexual activity in: 6 weeks Call your doctor if your incision/area has: Continuous Slow Oozing, Sudden Increased Bleeding, Foul Smelling Discharge and Swelling at the incision site Call your doctor if you observe: Fever of 101 or Higher and Inability to urinate DC O2, CPAP, BIPAP Needs Home O2 Discharge instructions: No Please Follow Up With: Isabela Harman DO When: Follow up with our office in 1 and 6 weeks or as needed. [phone] call or send a SampleBoard message Meaningful Use Info Meaningful Use Meaningful Use Diagnoses (Choose all that apply): None applicable Ischemic Stroke Statin Dosing Therapy Reference: STATIN DOSE THERAPY REFERENCE: * Patients > 75 years receive moderate or high dose statin therapy. * Patients 75 years or YOUNGER should receive HIGH intensity statin dose unless contraindicated. You will be required to document reason for non-treatment if statin daily dose does not meet guidelines. HIGH DOSE STATIN THERAPY DAILY Atorvastatin > than or = to 40 mg Rosuvastatin > than or = to 20 mg Amlodipine + Atorvastatin > than or = to 2.5/40 mg Ezetimibe + Simvastatin 10/80 mg Simvastatin 80mg Discharge Plan Admission Admit Date/Time: 12/04/24 02:48 Primary Reason for Your Visit: vaginal delivery Attending Provider: Isabela Harman Primary Care Provider: Care Physician,No Primary Discharge Orders/Prescriptions Prescriptions: New acetaminophen [Acetaminophen Extra Strength] 500 mg tablet 1,000 mg PO Q6H PRN (Reason: fever or pain) 20 Days Qty: 60 0RF ibuprofen 600 mg tablet 600 mg PO Q6H PRN (Reason: Pain) 20 Days Qty: 60 1RF No Action famotidine [Pepcid] 20 mg tablet 20 mg PO DAILY Referrals / Follow Up: Care Physician,No Primary [Primary Care Provider] - Disposition Disposition (needs filled in before D/C Order can be placed): Home, Self Care
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
== END 2024-12-05 15:20 | disposition home or self-care (01) | DRG 807 ==
LOC: WPOUT 02:52 → WP 02:52
PROVIDERS: Advanced Practice Midwife; Admitting Provider Obstetrics & Gynecology; Referring Provider Obstetrics & Gynecology; Visit Provider Obstetrics & Gynecology
DX: O99.824 Streptococcus B carrier state complicating childbirth (principal); Z37.0 Single live birth; O99.344 Other mental disorders complicating childbirth; F32.A Depression, unspecified; O70.0 First degree perineal laceration during delivery; Z3A.40 40 weeks gestation of pregnancy; Z86.16 Personal history of COVID-19
CPT/HCPCS: 59025; 59050; 84112; 85025; 86780; 86850; 86900; 86901; 99221; A4216; G0378